=== PATIENT | female | born 1975 | race African-American/Black ===

== ENCOUNTER 2017-10-27 07:29 | Inpatient (IN) | payer BC, OTHER ==
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
[2017-10-27 07:51] VITALS: BMI 24.1
[2017-10-27 08:24] LABS: BASO % 0.9 % (0-2.0); EOS % 1.5 % (0-4.5); MCHC 34.1 g/dl (32.0-36.0); MEAN CELL VOLUME 96.7 fl (80-96); MEAN PLT VOLUME 7.8 fl (7.5-11.1); NEUT % 69.3 % (42.8-82.8); PLATELET COUNT 243 K/MM3 (134-434); RDW 12.8 % (11.6-15.6); WHITE BLOOD COUNT 4.2 K/mm3 (4.0-10.0)
--- NOTE | 2017-10-27 08:31 | PDOC ---
Attending Attestation - Resident Resident Name: Tabatha Oconnorleticiashahram - ED Attending Attestation I have performed the following: I have examined & evaluated the patient, The case was reviewed & discussed with the resident (sujit is this), I agree w/ resident's findings & plan, Exceptions are as noted - HPI HPI: 10/27/17 08:26 She has no known history 42-year-old female with no known past medical history here today complaining of stuttering speech and left-sided twitching pain and paresthesia. Patient states that she did have travel to [place] month ago was seen at [facility] urgent care 1-2 weeks ago for some body aches and joint pains and left-sided paresthesia. At that time she was told that they did a test for Lyme disease which was negative also did a flu swab which was instantly positive despite no fever chills or cough. Patient has had a known L5-S1 lower back injury and has intermittent left-sided paresthesia most recently 2013. Today she awoke with feelings of change to her speech as well as shaking in her left leg she is also complaining of bilateral lower extremity and upper extremity weakness left greater than right denies any trauma reports feeling lightheaded with standing no chest pain no fevers chills nausea vomiting no rash no history of seizure disorder seizure-like activity noted today patient states last normal was 2 weeks ago and last normal speech was last p.m. - Physicial Exam PE: 10/27/17 08:28 Patient is awake alert no acute distress. Facies are symmetric. Lungs exam is clear bilaterally without wheezing or crackles heart is regular no murmurs rubs or gallops. Abdomen is soft and nontender skin is warm and dry no rash neuro exam patient is awake alert oriented 3 cranial nerves II through XII are intact. Chest clear strength is 5 out of 5 bilateral upper extremities 4 out of 5 bilateral lower extremities however patient demonstrates poor effort and sentation is intact. Gait not tested - Medical Decision Making 10/27/17 08:30 Differential diagnosis: Patchy neurological problems such as MS or other neuromuscular disease, muscle spasm, paresthesias secondary to electrolyte abnormality intracranial process, seizure or postictal syndrome, hypoglycemia. Patient's symptoms do not fit the time frame for presentation of acute anatomical stroke plan head CT, labs, EKG, due to the fact the patient is unable to walk steadily will likely require admission neurology evaluation and possible MRI Heart Score/ECG Review #1 General ECG Interpretation: Sinus Rhythm, Normal Rate (91), Normal Intervals, No acute ischemic changes
[2017-10-27 09:26] LABS: ALBUMIN 3.5 g/dl (3.4-5.0); ALK PHOS 74 U/L (45-117); ANION GAP 6 (8-16); BILIRUBIN,TOTAL 0.7 mg/dL (0.2-1.0); CALCIUM 8.3 mg/dL (8.5-10.1); CO2 28 mmol/L (21-32); CPK 57 IU/L (26-192); CREATININE 0.9 mg/dL (0.55-1.02); GLUCOSE,RANDOM 96 mg/dL (74-106); SGOT/AST 9 U/L (15-37); SGPT/ALT 14 U/L (12-78)
[2017-10-27] MEDS ORDERED: ACETAMINOPHEN 500 MG TABLET (FP) PO ONE (10:41)
[2017-10-27] MEDS ORDERED: ACETAMINOPHEN 325 MG TABLET (FP) ONE (10:42)
[2017-10-27 12:07] LABS: CSF APPEARANCE COLORLESS; CSF COLOR CLEAR
[2017-10-27 12:36] LABS: GLUCOSE,CSF 55 mg/dL (50-80)
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
[2017-10-27] MEDS ORDERED: FLU VACCINE QUAD 60 MCG/0.5 ML (MDV 17-18) IM ONE (15:05)
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
[2017-10-27 15:46] LABS: C-REACTIVE PROTEIN < 0.3 MG/DL (0.00-0.3)
[2017-10-27 15:51] LABS: THYROID STIMULATING HORMONE 1.62 uIU/ml (0.358-3.74)
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
[2017-10-27] MEDS: SODIUM CHLORIDE 1,000 ML IV SCH (20:38)
[2017-10-27] MEDS: SENNOSIDES/DOCUSATE COMBO (SENNA PLUS) TABLET (UD) PO SCH (21:31)
[2017-10-28] MEDS: SODIUM CHLORIDE 1,000 ML IV SCH ×3 (04:38→22:41)
[2017-10-28 07:11] LABS: BASO % 2.1 % (0-2.0); EOS % 2.6 % (0-4.5); MCH 33.1 pg (25.7-33.7); MCHC 34.2 g/dl (32.0-36.0); MEAN CELL VOLUME 96.6 fl (80-96); MEAN PLT VOLUME 8.9 fl (7.5-11.1); NEUT % 41.1 % (42.8-82.8); PLATELET COUNT 214 K/MM3 (134-434); RDW 12.6 % (11.6-15.6); WHITE BLOOD COUNT 3.9 K/mm3 (4.0-10.0)
[2017-10-28 08:00] LABS: ALBUMIN 3.1 g/dl (3.4-5.0); ALK PHOS 62 U/L (45-117); ANION GAP 7 (8-16); BILIRUBIN,TOTAL 0.8 mg/dL (0.2-1.0); CALCIUM 8.6 mg/dL (8.5-10.1); CO2 26 mmol/L (21-32); CREATININE 0.8 mg/dL (0.55-1.02); GLUCOSE,RANDOM 85 mg/dL (74-106); SGOT/AST 7 U/L (15-37); SGPT/ALT 12 U/L (12-78); TOT PROT 6.1 g/dl (6.4-8.2)
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
[2017-10-28] MEDS: SENNOSIDES/DOCUSATE COMBO (SENNA PLUS) TABLET (UD) PO SCH ×2 (10:46→22:42)
--- NOTE | 2017-10-28 10:55 | PN ---
Progress Note (short form) - Note Progress Note: ID consult dictated 42 y/o female admitted with worsening bilateral LE weakness, paresthesias, L UE weakness, stuttering speech Neuro work up thusfar negative. ? Post viral syndrome ? Lyme ? non - infectious For MRI of brain Obtain BC, Lyme and syphilis serology West Nile/ Dengue/ Zika serology CSF for lyme PCR, VDRL Brucella serology HIV test Quantiferon Observe off antibiotics Neuro follow up
--- NOTE | 2017-10-28 11:33 | MSN ---
Progress Note (SOAP) - Current Medications Current Medications: Active Medications Sodium Chloride (Normal Saline -) 1,000 mls @ 125 mls/hr IV ASDIR [facility] Last Admin: 10/28/17 04:38 Dose: 125 mls/hr Senna/Docusate Sodium (Pericolace -) 1 tablet PO BID [facility] Last Admin: 10/28/17 10:46 Dose: 1 tablet - Objective Vital Signs: Vital Signs Temperature 98.3 F 10/28/17 06:00 Pulse Rate 83 10/28/17 06:00 Respiratory Rate 19 10/28/17 06:00 Blood Pressure 133/88 10/28/17 06:00 O2 Sat by Pulse Oximetry (%) 99 10/27/17 21:00 Labs Lab Results: CBC, BMP 10/28/17 05:15 10/28/17 05:15
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
--- NOTE | 2017-10-28 11:57 | MSN ---
Progress Note (short form) - Note Progress Note: Subjective: Patient was seen this morning and states that she slept well and feels stronger. She is able to bear weight and walk to the restroom with assistance. She has not had a bowel movement for 3 days even with the administration of percolace last night. Objective: HEENT: normocephalic, atraumatic. PERRLA. nontender submandibular lymphadenopathy B/L. thyroid enlarged, nontender, no nodules. Cardiovascular: RRR, S1, S2, no murmurs noted. Lungs: Clear to auscultations B/L Abdomen: normoactive bowel sounds, nontender to palpation Skin: right knee warmer than left knee on touch. Neuro: CN II-XII intact. UE motor strength 5/5 B/L. right biceps reflex could not be elicited. left biceps reflex 2. radial pulse 2+ B/L. No dysarthria, tremors at rest. LE hip extension 1/5 B/L. Knee flexion B/L 4/5. Knee extension B/L 2/5. ankle dorsiflexion and plantarflexion 5/5 B/L. Patellar reflex could not be elicited B /L Imaging: - CT of the head showed no pathology - Cervical and lumbar MRI showed a mild left paramedian disc herniation, no intraspinal pathology Laboratory Results - last 24 hr 10/27/17 10/27/17 10/27/17 10:35 13:00 15:03 WBC RBC Hgb Hct MCV MCH MCHC RDW Plt Count MPV Neutrophils % Lymphocytes % Monocytes % Eosinophils % Basophils % ESR Sodium Potassium Chloride Carbon Dioxide Anion Gap BUN Creatinine Creat Clearance w eGFR Random Glucose Calcium Total Bilirubin AST ALT Alkaline Phosphatase C-Reactive Protein < 0.3 Total Protein Albumin Vitamin B12 416 Serum Folate 19 H TSH 1.62 D Free T4 CSF Appearance Colorless CSF Color Clear CSF WBC 0 CSF RBC 0.00 CSF Neutrophils Y CSF Glucose 55 CSF Total Protein 22 RPR Titer Nonreactive 10/27/17 10/27/17 10/28/17 15:03 15:03 05:15 WBC 3.9 L RBC 3.26 L Hgb 10.8 D Hct 31.5 L MCV 96.6 H MCH 33.1 MCHC 34.2 RDW 12.6 Plt Count 214 MPV 8.9 D Neutrophils % 41.1 L D Lymphocytes % 45.7 H D Monocytes % 8.5 Eosinophils % 2.6 Basophils % 2.1 H ESR 9 Sodium Potassium Chloride Carbon Dioxide Anion Gap BUN Creatinine Creat Clearance w eGFR Random Glucose Calcium Total Bilirubin AST ALT Alkaline Phosphatase C-Reactive Protein Total Protein Albumin Vitamin B12 Serum Folate TSH Free T4 1.07 CSF Appearance CSF Color CSF WBC CSF RBC CSF Neutrophils CSF Glucose CSF Total Protein RPR Titer 10/28/17 05:15 WBC RBC Hgb Hct MCV MCH MCHC RDW Plt Count MPV Neutrophils % Lymphocytes % Monocytes % Eosinophils % Basophils % ESR Sodium 143 Potassium 4.3 D Chloride 110 H Carbon Dioxide 26 Anion Gap 7 L BUN 9 Creatinine 0.8 Creat Clearance w eGFR > 60 Random Glucose 85 Calcium 8.6 Total Bilirubin 0.8 AST 7 L D ALT 12 Alkaline Phosphatase 62 C-Reactive Protein Total Protein 6.1 L Albumin 3.1 L Vitamin B12 Serum Folate TSH Free T4 CSF Appearance CSF Color CSF WBC CSF RBC CSF Neutrophils CSF Glucose CSF Total Protein RPR Titer Vital Signs - 24 hr 10/27/17 10/27/17 10/27/17 14:38 14:40 18:00 Temperature 98.6 F Pulse Rate 88 80 Pulse Rate [ 88 Apical] Respiratory 16 18 18 Rate Blood Pressure 138/96 130/92 Blood Pressure 138/96 [Right] O2 Sat by Pulse 99 99 99 Oximetry (%) 10/27/17 10/27/17 10/28/17 21:00 22:00 01:33 Temperature Pulse Rate 85 88 Pulse Rate [ Apical] Respiratory 20 20 20 Rate Blood Pressure 140/70 135/75 Blood Pressure [Right] O2 Sat by Pulse 99 Oximetry (%) Assessment: 42yo F who presented with weakness of B/L UE and LE, dysarthria after her recent travel to [place]. Differentials currently include Lyme Dz, viral encephalitis, multiple sclerosis, GBS/ Lambert-Eaton, myasthenia gravis. Plan: 1) Progressive B/L LE weakness - neurology consult (Dr. Elke Laurent) - Lyme antibody, IgG, PCR - IgA, IgG, IgM immunoglobulin - ISH - CPK - Free T3 - MBP - oligoclonal bands - VDRL - brain MRI pending - Brucella IgG, IgM. Dengue Fever Ab. HIV1,2 Ab. Quantiferon. West Nile Virus Ab. Zika Virus urine and serum. (ordered by Dr. Jluis Zuniga) - blood culture & CSF culture - PT requested 2) Constipation - Pericolace 1tab PO BID 3) FEN - fluid- PO hydration. NS 1000mL @ 125mls/hr - electrolytes- no abnormalities - nutrition- regular diet 4) DVT prophylaxis- SCDs b/l Dispo: further neuro work up and pending labs, head MRI
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
--- NOTE | 2017-10-28 15:08 | EKG ---
Test Reason : Blood Pressure : / mmHG Vent. Rate : 091 BPM Atrial Rate : 091 BPM P-R Int : 160 ms QRS Dur : 078 ms QT Int : 362 ms P-R-T Axes : 076 081 047 degrees QTc Int : 445 ms NORMAL SINUS RHYTHM POSSIBLE LEFT ATRIAL ENLARGEMENT SEPTAL INFARCT (CITED ON OR BEFORE 19-FEB-2014) ABNORMAL ECG WHEN COMPARED WITH ECG OF 25-AUG-2015 09:57, NO SIGNIFICANT CHANGE WAS FOUND Confirmed by NORMA DOTSON MD ([id number]) on 10/28/2017 3:08:08 PM Referred By: Confirmed By:NORMA DOTSON MD
[2017-10-28] MEDS: ACETAMINOPHEN 325 MG TABLET (FP) PO PRN ×2 (15:57→22:00)
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
[2017-10-28 21:32] LABS: INR 1.12 (0.82-1.09); PROTHROMBIN TIME (PATIENT) 12.6 SEC (9.98-11.88)
[2017-10-28] MEDS ORDERED: HEPARIN NA (PORCINE) 5,000 UNITS/ML 1ML VIAL SQ SCH (22:00)
[2017-10-29] MEDS: SODIUM CHLORIDE 1,000 ML IV SCH ×3 (04:34→19:59)
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
[2017-10-29 07:27] LABS: BASO % 1.1 % (0-2.0); EOS % 3.8 % (0-4.5); MCH 32.7 pg (25.7-33.7); MCHC 33.5 g/dl (32.0-36.0); MEAN CELL VOLUME 97.5 fl (80-96); MEAN PLT VOLUME 8.3 fl (7.5-11.1); NEUT % 43.8 % (42.8-82.8); PLATELET COUNT 205 K/MM3 (134-434); RDW 12.6 % (11.6-15.6); WHITE BLOOD COUNT 4.3 K/mm3 (4.0-10.0)
[2017-10-29 07:51] LABS: ALBUMIN 3.1 g/dl (3.4-5.0); ANION GAP 6 (8-16); CALCIUM 8.5 mg/dL (8.5-10.1); CO2 27 mmol/L (21-32); CREATININE 0.9 mg/dL (0.55-1.02); GLUCOSE,RANDOM 84 mg/dL (74-106); SGOT/AST 10 U/L (15-37); TOT PROT 6.1 g/dl (6.4-8.2)
[2017-10-29 07:54] LABS: ALK PHOS 61 U/L (45-117); BILIRUBIN,TOTAL 0.9 mg/dL (0.2-1.0); SGPT/ALT 12 U/L (12-78)
[2017-10-29] MEDS ORDERED: VANCOMYCIN 1,000 MG VIAL (RESTRICTED TO ID ONLY) ONE ×3 (08:47→10:25)
[2017-10-29] MEDS ORDERED: LIDOCAINE HCL 1%, 10 MG/ML (20ML VIAL) ONE (08:47)
[2017-10-29] MEDS ORDERED: GENTAMICIN SO4 80 MG/2 ML VIAL ONE (08:47)
[2017-10-29] MEDS ORDERED: BUPIVACAINE HCL/PF 0.5% (5MG/ML) 10 ML VIAL ONE ×2 (08:48→10:24)
[2017-10-29] MEDS ORDERED: LIDOCAINE 1%/EPI 1:100000 (20 ML MULTI DOSE VIAL) ONE (08:49)
[2017-10-29 09:54] LABS: HIV 1 & 2 AB NEGATIVE; HIV 1 AGp24 NEGATIVE
[2017-10-29] MEDS: SENNOSIDES/DOCUSATE COMBO (SENNA PLUS) TABLET (UD) PO SCH ×2 (10:10→22:28)
[2017-10-29] MEDS ORDERED: THROMBIN (BOVINE) 5,000 UNIT VIAL TP ONE ×2 (10:24→14:32)
[2017-10-29] MEDS ORDERED: VANCOMYCIN 1,000 MG in DEXTROSE 5%-WATER - 250 ML IVPB ONE (10:33)
[2017-10-29] MEDS ORDERED: MIDAZOLAM HCL 2 MG/2 ML SINGLE DOSE VIAL ONE (11:02)
[2017-10-29] MEDS ORDERED: fentaNYL CITRATE 250 MCG/5 ML VIAL ONE (11:04)
[2017-10-29] MEDS ORDERED: ROCURONIUM BROMIDE 50 MG/5 ML VIAL ONE ×2 (11:05→11:59)
[2017-10-29] MEDS ORDERED: PROPOFOL 20 ML ONE ×2 (11:05→13:46)
[2017-10-29] MEDS ORDERED: ceFAZolin SODIUM 1 GM VIAL IVPB ONE (11:10)
[2017-10-29] MEDS ORDERED: VANCOMYCIN 1,000 MG VIAL (RESTRICTED TO ID ONLY) IVPB ONE (11:20)
[2017-10-29] MEDS ORDERED: LIDOCAINE 1%/EPI 1:100000 (20 ML MULTI DOSE VIAL) INF ONE (12:35)
[2017-10-29] MEDS ORDERED: BUPIVACAINE HCL/PF 0.5% (5MG/ML) 10 ML VIAL IJ ONE (13:23)
--- NOTE | 2017-10-29 13:40 | MSN ---
Progress Note (short form) - Note Progress Note: Subjective: Patient was seen this morning with complaints of LE weakness and pain on medial aspect of the right leg with weight bearing during her PT session yesterday. She also complains of headache with neck and shoulder pain which started last evening and has improved with the use of a heating pad. Patient reported having soft bowel movement yesterday. Patient was scheduled for Laminectomy at 9:30am with Dr. Mccracken. Objective: Last Vital Signs Temp Pulse Resp BP Pulse Ox 99 F 78 18 139/80 99 10/29/17 10:00 10/29/17 10:00 10/29/17 10:00 10/29/17 10:00 10/29/17 09:00 General: Alert and Oriented x3 HEENT: normocephalic, atraumatic. PERRLA. EOMI. nontender submandibular lymphadenopathy B/L unchanged. Thyroid enlarged, nontender, no nodules. Lungs: clear to auscultation B/L Heart: RRR, normal S1, S2. Abdomen: normoactive bowel sounds. soft, nontender to palpation. Skin: right knee warmer than the left Neuro: CN II-XII intact. UE motor strength (biceps/ triceps, wrist flexion/ extension, finger abduction, assembling inspector) 5/5 B/L. 2+ radial pulses. Right biceps, triceps, brachioradialis reflex could not be elicited. Left biceps reflex 2+, triceps & brachioradialis 1+ LE hip extension 2/5, knee flexion/ extension 4/5, ankle dorsiflexion & plantarflexion 5/5. Knee & ankle reflex 1+ B/L. Labs: Laboratory Last Values WBC 4.3 K/mm3 (4.0-10.0) 10/29/17 06:30 RBC 3.29 M/mm3 (3.60-5.2) L 10/29/17 06:30 Hgb 10.7 GM/dL (10.7-15.3) 10/29/17 06:30 Hct 32.0 % (32.4-45.2) L 10/29/17 06:30 MCV 97.5 fl (80-96) H 10/29/17 06:30 MCH 32.7 pg (25.7-33.7) 10/29/17 06:30 MCHC 33.5 g/dl (32.0-36.0) 10/29/17 06:30 RDW 12.6 % (11.6-15.6) 10/29/17 06:30 Plt Count 205 K/MM3 (134-434) 10/29/17 06:30 MPV 8.3 fl (7.5-11.1) 10/29/17 06:30 Neutrophils % 43.8 % (42.8-82.8) 10/29/17 06:30 Lymphocytes % 43.3 % (8-40) H 10/29/17 06:30 Monocytes % 8.0 % (3.8-10.2) 10/29/17 06:30 Eosinophils % 3.8 % (0-4.5) 10/29/17 06:30 Basophils % 1.1 % (0-2.0) 10/29/17 06:30 ESR 9 mm/hr (0-20) 10/27/17 15:03 PT with INR 12.60 SEC (9.98-11.88) H 10/28/17 20:00 INR 1.12 (0.82-1.09) 10/28/17 20:00 Sodium 144 mmol/L (136-145) 10/29/17 06:30 Potassium 3.9 mmol/L (3.5-5.1) 10/29/17 06:30 Chloride 111 mmol/L (98-107) H 10/29/17 06:30 Carbon Dioxide 27 mmol/L (21-32) 10/29/17 06:30 Anion Gap 6 (8-16) L 10/29/17 06:30 BUN 9 mg/dL (7-18) 10/29/17 06:30 Creatinine 0.9 mg/dL (0.55-1.02) 10/29/17 06:30 Creat Clearance w eGFR > 60 (>60) 10/29/17 06:30 Random Glucose 84 mg/dL (74-106) 10/29/17 06:30 Calcium 8.5 mg/dL (8.5-10.1) 10/29/17 06:30 Total Bilirubin 0.9 mg/dL (0.2-1.0) 10/29/17 06:30 AST 10 U/L (15-37) L D 10/29/17 06:30 ALT 12 U/L (12-78) 10/29/17 06:30 Alkaline Phosphatase 61 U/L (45-117) 10/29/17 06:30 Creatine Kinase 57 IU/L (26-192) 10/27/17 08:10 C-Reactive Protein < 0.3 MG/DL (0.00-0.3) 10/27/17 15:03 Total Protein 6.1 g/dl (6.4-8.2) L 10/29/17 06:30 Albumin 3.1 g/dl (3.4-5.0) L 10/29/17 06:30 Vitamin B12 416 pg/ml (180-914) 10/27/17 15:03 Serum Folate 19 ng/ml (3.1-17.5) H 10/27/17 15:03 TSH 1.62 uIU/ml (0.358-3.74) D 10/27/17 15:03 Free T4 1.07 ng/dl (0.76-1.46) 10/27/17 15:03 Free T3 3.0 pg/ml (2.0-4.4) 10/27/17 15:05 Serum , Qual Negative 10/27/17 08:25 CSF Appearance Colorless 10/27/17 10:35 CSF Color Clear 10/27/17 10:35 CSF WBC 0 mm/3 10/27/17 10:35 CSF RBC 0.00 mm/3 10/27/17 10:35 CSF Neutrophils Y 10/27/17 10:35 CSF Glucose 55 mg/dL (50-80) 10/27/17 10:35 CSF Total Protein 22 mg/dL (15-45) 10/27/17 10:35 IgG 1642 mg/dL (700-1600) H 10/27/17 12:42 IgA 177 mg/dL (87-352) 10/27/17 12:42 IgM 283 mg/dL (26-217) H 10/27/17 12:00 ISH Screen Negative (.) 10/27/17 10:00 RPR Titer Nonreactive (NONREACTIVE) 10/27/17 13:00 Lyme Disease IgG/IgM < 0.91 ISR (0.00-0.90) 10/27/17 08:10 HIV 1&2 Antibody Screen Negative 10/29/17 06:30 HIV P24 Antigen Negative 10/29/17 06:30 Blood Type O POSITIVE 10/28/17 20:00 Antibody Screen Negative 10/28/17 20:00 Microbiology 10/28/17 11:03 Blood - Peripheral Venous Blood Culture - Preliminary NO GROWTH OBTAINED AFTER 24 HOURS, INCUBATION TO CONTINUE FOR 4 DAYS. 10/28/17 11:05 Blood - Peripheral Venous Blood Culture - Preliminary NO GROWTH OBTAINED AFTER 24 HOURS, INCUBATION TO CONTINUE FOR 4 DAYS. 10/27/17 11:14 Cerebral Spinal Fluid - Lumbar Puncture Gram Stain - Final 10/27/17 11:14 Cerebral Spinal Fluid - Lumbar Puncture CSF Culture - Preliminary NO GROWTH OBTAINED AFTER 24 HOURS INCUBATION, REINCUBATED. Imaging: - non- contrast head CT on 10/27 showed no pathology - cervical/ thoracic/ lumbar MRI on 10/27 showed a T7-T8 central/left paramedian disc herniation with mild spinal cord indentation. - brain MRI without contrast on 10/28 showed a nonspecific single punctate focus of T2/FLAIR signal in the subinsular white matter. No signal abnormalities to suggest multiple sclerosis. No evidence of infarction, mass effect, midline shift or hydrocephalus. Prominent pituitary gland 10mm. Assessment/ Plan: 42yo woman with a hx of L5-S1 radiculopathy, recurrent adenoiditis who currently presents with persistent B/L LE weakness, arthralgia and fatigue possibly due to T7-T8 spondylosis. Differential diagnosis includes Lyme Dz, GBS , transverse myelitis, myasthenia gravis/ lambert eaton syndrome. 1) Progressive B/L LE weakness - neurology consulted (Dr. Elke Laurent) - CSF stain and culture negative. - Lyme IgG/IgM <0.91 (N: 0-0.90) - IgG 1642 (N:700-1600), IgA 177 (N:87-352), IgM 283(N: 26-217) - RPR nonreactive. - HIV 1&2 antibody, HIVp24 antigen are negative - ISH is negative - pending CSF oligoclonal bands, lyme titer. - pending Brucella IgG, IgM. Dengue Fever Ab. West Nile Virus Ab. Zika Virus urine and serum (ordered by Dr. Jluis Zuniga) - T7-T8 laminectomy w/ transpedicle costotransverse decompression, w/ T7-T8 posterior fusion performed by Dr. Daugherty on 10/29/17. - acetaminophen 650mg PO q6h prn pain 2) Constipation - Pericolace 1 tab PO BID 3) FEN - fluid: NS 1000mL @125 mls/hr. - electrolytes: no abnormalities - nutrition: NPO due to surgery. return to PO 4) DVT prophylaxis - SCDs (heparin on hold due to recent surgery) Dispo: Further neuro work up, pending labs, post-op: laminectomy
[2017-10-29] MEDS ORDERED: SODIUM CHLORIDE 0.9% P/F 10 ML VIAL IJ ONE (13:54)
[2017-10-29] MEDS ORDERED: ePHEDrine SULFATE 50 MG/1 ML AMPULE ONE (13:54)
[2017-10-29] MEDS ORDERED: NEOSTIGMINE METHYLSULFATE 0.5 MG/ML - 10 ML MDV ONE (13:56)
[2017-10-29] MEDS ORDERED: GLYCOPYRROLATE 0.2 MG/1 ML VIAL ONE (13:57)
[2017-10-29] MEDS ORDERED: PHENYLEPHRINE HCL 10 MG/1 ML SINGLE DOSE VIAL ONE (13:58)
[2017-10-29] MEDS ORDERED: ONDANSETRON 4 MG/2 ML VIAL IVPUSH PRN ×2 (14:42→17:27)
[2017-10-29] MEDS ORDERED: FLU VACCINE QUAD 60 MCG/0.5 ML (MDV 17-18) IM ONE (14:45)
--- NOTE | 2017-10-29 15:37 | OP ---
Operative Note - Note: Operative Date: 10/29/17 Pre-Operative Diagnosis: T7-T8 disc herniation, thoracic splondylosis Operation: T7-T8 Laminectomies with transpedicle costotransverse decompression of T7-T8 with T7-T8 posterior fusion Post-Operative Diagnosis: Same as Pre-op Surgeon: Navarro Horn Accident Report Clerk: Gina Acuña Anesthesiologist/GROCERY WORKER: Nimo Retana MD Anesthesia: General Specimens Removed: T7-T8 Disc Estimated Blood Loss (mls): 150 Drains & Tubes with Location: Right thoracic HARESH Fluid Volume Replaced (mls): 1,000 Operative Report Dictated: Yes
--- NOTE | 2017-10-29 15:38 | SURG ---
Surgery Hedge Fund Accountant Note Hedge Fund Accountant: Gina Acuña PA-C Date of Service: 10/29/17 Diagnosis: T7-T8 disc herniation Procedure: T7-T8 Laminectomies with transpedicle costotransverse decompression of T7-T8 with T7-T8 posterior fusion I was present for the entirety of the operative procedure. For further detail, please refer to operative report. Visit type - Case Type Case Type: ED Admission - Emergency Emergency Visit: Yes ED Registration Date: 10/27/17 Care time: The patient presented to the Emergency Department on the above date and was hospitalized for further evaluation of their emergent condition. - New patient This patient is new to me today: Yes Date on this admission: 10/29/17
[2017-10-29] MEDS ORDERED: ACETAMINOPHEN 325 MG TABLET (FP) PO PRN ×2 (15:58→17:27)
[2017-10-29] MEDS ORDERED: oxyCODONE HCL 5 MG TABLET PO PRN (15:58)
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
--- NOTE | 2017-10-29 16:45 | PN ---
Progress Note, Physician History of Present Illness: Seen in PACU S/P T7T8 laminectomy/ decompression/ posterior fusion Sedated No fever WBC WNL Lyme serology, HIV (-) - Current Medication List Current Medications: Active Medications Acetaminophen (Tylenol -) 650 mg PO Q6H PRN PRN Reason: FEVER OR PAIN Last Admin: 10/28/17 22:00 Dose: 650 mg Acetaminophen (Tylenol -) 325 mg PO Q4H PRN PRN Reason: PAIN Stop: 11/01/17 15:57 Acetaminophen (Tylenol -) 650 mg PO Q4H PRN PRN Reason: PAIN Stop: 11/01/17 15:58 Fentanyl (Sublimaze Injection -) 50 mcg IVPUSH [id number] PRN PRN Reason: PAIN Heparin Sodium (Porcine) (Heparin -) 5,000 unit SQ TID PETER Sodium Chloride (Normal Saline -) 1,000 mls @ 125 mls/hr IV ASDIR PETER Last Admin: 10/29/17 04:34 Dose: 125 mls/hr Cefazolin Sodium (Ancef -) 1 gm in 10 mls @ 120 mls/hr IVPUSH Q8H-IV PETER Ondansetron HCl (Zofran Injection) 4 mg IVPUSH Q6H PRN PRN Reason: NAUSEA AND/OR VOMITING Oxycodone HCl (Roxicodone -) 5 mg PO Q4H PRN PRN Reason: PAIN Oxycodone HCl (Roxicodone -) 10 mg PO Q4H PRN PRN Reason: PAIN Senna/Docusate Sodium (Pericolace -) 1 tablet PO BID [facility] Last Admin: 10/29/17 10:10 Dose: Not Given - Objective Vital Signs: Vital Signs Temperature 98.8 F 10/29/17 14:32 Pulse Rate 84 10/29/17 16:30 Respiratory Rate 16 10/29/17 16:30 Blood Pressure 131/81 10/29/17 16:30 O2 Sat by Pulse Oximetry (%) 100 10/29/17 16:30 Constitutional: Yes: No Distress Eyes: Yes: Conjunctiva Clear Cardiovascular: Yes: Regular Rate and Rhythm, S1, S2 Respiratory: Yes: CTA Bilaterally Gastrointestinal: Yes: Normal Bowel Sounds, Soft. No: Tenderness Edema: No Labs: CBC, BMP 10/29/17 06:30 10/29/17 06:30 INR, PTT INR 1.12 (0.82-1.09) 10/28/17 20:00 Assessment/Plan Post op T7T8 laminectomy/ decompression/ posterior fusion Doubt mosquito/ tick-related illness Await serologies
[2017-10-29] MEDS ORDERED: CEFAZOLIN 1 GM in DEXTROSE 5%-WATER - 50 ML IVPB SCH (18:00)
[2017-10-29] MEDS: CEFAZOLIN 1 GM PUSH 1 GM/10 ML DISP.SYRIN IVPUSH SCH (18:42)
[2017-10-29] MEDS: oxyCODONE HCL 5 MG TABLET PO PRN (20:08)
[2017-10-29] MEDS: ACETAMINOPHEN 325 MG TABLET (FP) PO PRN (20:09)
[2017-10-30] MEDS: CEFAZOLIN 1 GM PUSH 1 GM/10 ML DISP.SYRIN IVPUSH SCH ×3 (01:55→18:22)
[2017-10-30] MEDS: oxyCODONE HCL 5 MG TABLET PO PRN ×4 (02:00→20:03)
[2017-10-30] MEDS: SODIUM CHLORIDE 1,000 ML IV SCH ×3 (04:30→17:21)
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
[2017-10-30] MEDS: HEPARIN NA (PORCINE) 5,000 UNITS/ML 1ML VIAL SQ SCH ×3 (06:13→21:22)
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
[2017-10-30 08:45] LABS: BASO % 0.5 % (0-2.0); EOS % 0.3 % (0-4.5); MEAN CELL VOLUME 97.2 fl (80-96); MEAN PLT VOLUME 8.4 fl (7.5-11.1); NEUT % 68.7 % (42.8-82.8); PLATELET COUNT 204 K/MM3 (134-434); RDW 12.6 % (11.6-15.6)
[2017-10-30 09:16] LABS: ANION GAP 7 (8-16); CALCIUM 7.9 mg/dL (8.5-10.1); CO2 25 mmol/L (21-32); CREATININE 0.9 mg/dL (0.55-1.02); GLUCOSE,RANDOM 87 mg/dL (74-106)
--- NOTE | 2017-10-30 09:34 | PN ---
Progress Note (short form) - Note Progress Note: Surgery POD #1 T7-T8 discectomy with decompression and fusion. Patient seen and examined at bedside. She states the "feeling in her legs is coming back". She is pleasant and talkative. She is actively moving all extremities without limitation or restriction. The patient has been ambulating to the bathroom and voiding spontaneously, she has been passing gas but has not had a BM yet. She denies any paresthesias or radicular symptoms in upper or lower extremities. She does have pain at incision site with movement which is appropriate to her status and her pain is controlled. She denies any c/p, SOB, N /V, Headache or blurred vision. She is tolerating a regular diet. Vital Signs Temp 98.3 F 10/30/ 07:07 Pulse 85 10/30/17 07:07 Resp 20 10/30/17 07:07 BP 120/70 10/30/17 07:07 Pulse Ox 100 10/29/17 16:40 Intake & Output 10/29/17 10/29/17 10/30/17 11:59 23:59 11:59 Intake Total 350 1500 Output Total 1110 80 Balance 350 390 -80 Intake: IV 350 1500 Normal Saline - 1,000 ml 350 @ 125 mls/hr IV ASDIR PETER Rx#:[id number] Output: Drainage 160 80 Upper Back 100 80 Urine 800 Estimated Blood Loss 150 Other: Voiding Method Toilet Bedside Commode # Unmeasured Voids Void 1 CBC, BMP 10/30/17 08:00 10/30/17 08:00 PE: A&Ox3, NAD VSS with unlabored resp on 2L NC Thoracic incision-dressing c/d/i with no evidence of fluctuance or tracking erythema. mildly TTP at site- appropriate to status. HARESH drain intact with SS discharge, drain site c/d/i. B/L UE 5/5 on left and 4/5 on right, slightly limited 2/2 pain blocking B/L LE patient able to straight leg raise against resistance without pain. 5/5 dorsi/plantar flexion b/l. compartments soft, supple and non-tender with scds in place. +2 pedal pulse on Right, +1 pedal pulse on left (patient's baseline pre-op) Assessment and plan: S/P T7-T8 discectomy with decompression and fusion with significant clinical improvement POD #1 1) OOB with PT and TLSO brace 2) DVT prophylaxis b/l teds, scds and heparin 3) pain control 4) Continue Ancef while HARESH drain in 5) Keep dressing dry Evaluation and plan discussed with Dr Horn
[2017-10-30] MEDS ORDERED: FOLIC ACID 1 MG TABLET (FP) PO SCH (10:00)
[2017-10-30] MEDS ORDERED: PT OWN MED DRAWER 7, Y5N ONE ×2 (10:38→18:13)
[2017-10-30] MEDS: SENNOSIDES/DOCUSATE COMBO (SENNA PLUS) TABLET (UD) PO SCH ×2 (10:43→21:18)
[2017-10-30] MEDS: ACETAMINOPHEN 325 MG TABLET (FP) PO PRN ×3 (10:43→20:02)
--- NOTE | 2017-10-30 13:19 | MSN ---
Progress Note (short form) - Note Progress Note: Subjective: 42yo F status post laminectomy post-op day 1 is doing well and complains only of surgical site pain. Patient claims that the numbness on her legs and shooting pain have gone away and that she has more strength moving her LE. Objective: Last Vital Signs Temp Pulse Resp BP Pulse Ox 98.3 F 85 20 120/70 100 10/30/17 07:07 10/30/17 07:07 10/30/17 07:07 10/30/17 07:07 10/29/17 16:40 General: patient is alert and oriented x3 HEENT: normocephalic, atraumatic. PERRLA. EOMI. nontender submandibular lymphdenopathy b/l unchanged. Lungs: Clear to auscultation B/L Heart: RRR, normal S1, S2 Abdomen: normoactive bowel sounds. soft, nontender to palpation Neuro: CN II- XII intact. Diminished sensation on right V1 (unchanged) UE motor strength of biceps, triceps, wrist flexion/ extension, finger abduction, drafter civil are 5/5 B/L. radial pulses are 2+ B/L. biceps reflex 2+ B/L. LE hip extension 4/5 B/L. knee flexion/ extension 4/5 B/L. ankle dorsiflexion and plantarflexion are 5/5 B/L. Knee and ankle reflex 1+ on right, 2+ on left. sensation intact throughout B/L LE. . Laboratory Last Values WBC 9.0 K/mm3 (4.0-10.0) D 10/30/17 08:00 RBC 3.10 M/mm3 (3.60-5.2) L 10/30/17 08:00 Hgb 10.2 GM/dL (10.7-15.3) L 10/30/17 08:00 Hct 30.1 % (32.4-45.2) L 10/30/17 08:00 MCV 97.2 fl (80-96) H 10/30/17 08:00 MCH 33.0 pg (25.7-33.7) 10/30/17 08:00 MCHC 34.0 g/dl (32.0-36.0) 10/30/17 08:00 RDW 12.6 % (11.6-15.6) 10/30/17 08:00 Plt Count 204 K/MM3 (134-434) 10/30/17 08:00 MPV 8.4 fl (7.5-11.1) 10/30/17 08:00 Neutrophils % 68.7 % (42.8-82.8) D 10/30/17 08:00 Lymphocytes % 22.7 % (8-40) D 10/30/17 08:00 Monocytes % 7.8 % (3.8-10.2) 10/30/17 08:00 Eosinophils % 0.3 % (0-4.5) D 10/30/17 08:00 Basophils % 0.5 % (0-2.0) 10/30/17 08:00 ESR 9 mm/hr (0-20) 10/27/17 15:03 PT with INR 12.60 SEC (9.98-11.88) H 10/28/17 20:00 INR 1.12 (0.82-1.09) 10/28/17 20:00 Sodium 142 mmol/L (136-145) 10/30/17 08:00 Potassium 3.6 mmol/L (3.5-5.1) 10/30/17 08:00 Chloride 110 mmol/L (98-107) H 10/30/17 08:00 Carbon Dioxide 25 mmol/L (21-32) 10/30/17 08:00 Anion Gap 7 (8-16) L 10/30/17 08:00 BUN 7 mg/dL (7-18) D 10/30/17 08:00 Creatinine 0.9 mg/dL (0.55-1.02) 10/30/17 08:00 Creat Clearance w eGFR > 60 (>60) 10/29/17 06:30 Random Glucose 87 mg/dL (74-106) 10/30/17 08:00 Calcium 7.9 mg/dL (8.5-10.1) L 10/30/17 08:00 Total Bilirubin 0.9 mg/dL (0.2-1.0) 10/29/17 06:30 AST 10 U/L (15-37) L D 10/29/17 06:30 ALT 12 U/L (12-78) 10/29/17 06:30 Alkaline Phosphatase 61 U/L (45-117) 10/29/17 06:30 Creatine Kinase 57 IU/L (26-192) 10/27/17 08:10 C-Reactive Protein < 0.3 MG/DL (0.00-0.3) 10/27/17 15:03 Total Protein 6.1 g/dl (6.4-8.2) L 10/29/17 06:30 Albumin 3.1 g/dl (3.4-5.0) L 10/29/17 06:30 Vitamin B12 416 pg/ml (180-914) 10/27/17 15:03 Serum Folate 19 ng/ml (3.1-17.5) H 10/27/17 15:03 TSH 1.62 uIU/ml (0.358-3.74) D 10/27/17 15:03 Free T4 1.07 ng/dl (0.76-1.46) 10/27/17 15:03 Free T3 3.0 pg/ml (2.0-4.4) 10/27/17 15:05 Serum , Qual Negative 10/27/17 08:25 CSF Appearance Colorless 10/27/17 10:35 CSF Color Clear 10/27/17 10:35 CSF WBC 0 mm/3 10/27/17 10:35 CSF RBC 0.00 mm/3 10/27/17 10:35 CSF Neutrophils Y 10/27/17 10:35 CSF Glucose 55 mg/dL (50-80) 10/27/17 10:35 CSF Total Protein 22 mg/dL (15-45) 10/27/17 10:35 CSF Lyme Disease DNA Negative (Negative) 10/27/17 12:00 IgG 1642 mg/dL (700-1600) H 10/27/17 12:42 IgA 177 mg/dL (87-352) 10/27/17 12:42 IgM 283 mg/dL (26-217) H 10/27/17 12:00 ISH Screen Negative (.) 10/27/17 10:00 RPR Titer Nonreactive (NONREACTIVE) 10/27/17 13:00 Lyme Disease IgG/IgM < 0.91 ISR (0.00-0.90) 10/27/17 08:10 HIV 1&2 Antibody Screen Negative 10/29/17 06:30 HIV P24 Antigen Negative 10/29/17 06:30 Blood Type O POSITIVE 10/28/17 20:00 Antibody Screen Negative 10/28/17 20:00 Microbiology 10/28/17 11:03 Blood - Peripheral Venous Blood Culture - Preliminary NO GROWTH OBTAINED AFTER 48 HOURS, INCUBATION TO CONTINUE FOR 3 DAYS. 10/28/17 11:05 Blood - Peripheral Venous Blood Culture - Preliminary NO GROWTH OBTAINED AFTER 48 HOURS, INCUBATION TO CONTINUE FOR 3 DAYS. 10/27/17 11:14 Cerebral Spinal Fluid - Lumbar Puncture Gram Stain - Final 10/27/17 11:14 Cerebral Spinal Fluid - Lumbar Puncture CSF Culture - Final NO GROWTH AFTER 48 HOURS INCUBATION Imaging - non contrast head CT on 10/27 showed no pathology - cervical/ thoracic/ lumbar MRI on 10/27 showed a T7-T8 central/ left paramedian disc herniation with mild spinal cord indentation - brain MRI without contrast on 10/28 showed a nonspecific single punctate focus of T2/FLAIR signal in the subinsular white matter. No signal abnormalities to suggest MS. No evidence of infarction, mass effect, midline shift or hydrocephalus. Prominent pituitary gland 10mm. Assessment/ Plan: 42yo woman with a hx of L-S1 radiculopathy, recurrent adenoiditis who presents with persistent B/L LE weakness due to mechanical impingement T7-T8 spondylosis. Patient is doing well post-op day 1 and will be monitored for progress. 1) B/L LE weakness, has improved post laminectomy - neurology consulted (Dr. Elke Laurent) - CSF stain, culture and Lyme negative - Lyme IgG/ IgM <0.91 (N: 0-0.9) - IgG 1642 (N: 700-1600), IgA 177 (N: 87-352), IgM 283 (N: 26-217) - RPR nonreactive - HIV 1&2 antibody, HIVp24 antigen are negative - ISH is negative. - pending CSF oligoclonal bands - pending Brucella IgG, IgM. Dengue fever Ab. West Nile virus Ab. Zika virus urine and serum (ordered by Dr. Jluis Zuniga) - T7-T8 laminectomy with transpedicle costotrasnverse decompression and posterior fusion performed by Dr. Daugherty on 10/29/17 2)Post- op management - Ancef 1g in 10mls @120mls/hr - Oxycodone 5mg PO q4h prn pain level 1-5 - Oxycodone 10mg PO q4h prn pain level 6-10 - acetaminophen 650 mg PO q4h prn pain. - acetaminophen 325 mg PO q4h prn pain - odansetron HCl 4mg IV push q6h prn nausea/vomit - monitor progress and pain level. - possible HARESH drain removal - PT 3) follow up enlarged pituitary finding - pituitary MRI with gadolinium 4) Constipation - senna/docusate 1tab PO BID 5) DVT prophylaxis - heparin sodium 5000 unit sq TID 6) FEN - fluid NS 1000mL @125 mls/hr - electrolytes: no abnormalities - nutrition: PO nutrition dispo: post-op management, physical therapy, neuro work up, pending labs.
[2017-10-30 16:41] LABS: MCH 33.3 pg (25.7-33.7); MCHC 33.8 g/dl (32.0-36.0); MEAN CELL VOLUME 98.3 fl (80-96); MEAN PLT VOLUME 8.8 fl (7.5-11.1); PLATELET COUNT 218 K/MM3 (134-434); RDW 12.7 % (11.6-15.6)
[2017-10-30 17:10] LABS: ALBUMIN 3.1 g/dl (3.4-5.0); ANION GAP 8 (8-16); CALCIUM 7.4 mg/dL (8.5-10.1); CO2 25 mmol/L (21-32); CREATININE 0.9 mg/dL (0.55-1.02); GLUCOSE,RANDOM 59 mg/dL (74-106); SGOT/AST 11 U/L (15-37); SGPT/ALT 10 U/L (12-78)
[2017-10-30 17:12] LABS: ALK PHOS 73 U/L (45-117); BILIRUBIN,TOTAL 0.7 mg/dL (0.2-1.0); TOT PROT 6.4 g/dl (6.4-8.2)
--- NOTE | 2017-10-30 18:54 | PN ---
Teaching Attending Note Name of Resident: Shakir Davenport ATTENDING PHYSICIAN STATEMENT I saw and evaluated the patient. I reviewed the resident's note and discussed the case with the resident. I agree with the resident's findings and plan as documented. SUBJECTIVE: No fever or chills . has no pain. feels much better after sx , she gaind function and strength in LE , OBJECTIVE: NAD , AAOx3 CV: RRR 2/6 SM at LLSB Lungs : CTAB ext: no edema Abd: soft, NT, ND , NL BS Neuro : strength in proximal upper extremities was not fully tested due to pain in back. 5/5 in biceps and triceps and wrist flexion /extension as well as hand switch adjuster. strength 5/5 in LE proximally and distally . sensatio to light touch NL. Knee jerk 1+ R, 2+ L . 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 1- Central cervical disk herniation , s/p T7-T8 discectomy with decompression and fusion with significant improvement in neuro exam. - pain control - DVT px - OUt of bed with TLCO - Abx while HARESH in - monitor neuro exam - dc IVF 2- prominent pituitary glan on mRI of head: - f/u as out pt for MRI with arely to further evaluate 3- macrocytic anemia : folic is elevated and B12 is nl. - dc folic acid. 4- DVT PX : heparin Dispo : possible dc in 1-2 days pending HARESH drainage removal
[2017-10-31 00:06] LABS: LYME IGG WB INTERP. Negative (.); LYME IGM WB. INTERP Negative (.); P18 AB Absent (.); P23 AB Absent (.); P28 AB Absent (.); P30 AB Absent (.); P39 AB Absent (.); P41 AB Absent (.); P45 AB Absent (.); P58 AB Absent (.); P66 AB Absent (.); P93 AB Absent (.)
[2017-10-31] MEDS: oxyCODONE HCL 5 MG TABLET PO PRN ×4 (00:50→19:46)
[2017-10-31] MEDS: ACETAMINOPHEN 325 MG TABLET (FP) PO PRN ×3 (00:51→19:51)
[2017-10-31] MEDS: CEFAZOLIN 1 GM PUSH 1 GM/10 ML DISP.SYRIN IVPUSH SCH ×3 (02:37→17:42)
[2017-10-31] MEDS: HEPARIN NA (PORCINE) 5,000 UNITS/ML 1ML VIAL SQ SCH ×3 (05:52→21:04)
--- NOTE | 2017-10-31 06:53 | PN ---
Progress Note, Physician Chief Complaint: S/P thoracic decompression fusion under general anesthesia History of Present Illness: post op day one - Current Medication List Current Medications: Active Medications Acetaminophen (Tylenol -) 325 mg PO Q4H PRN PRN Reason: PAIN Stop: 11/01/17 15:57 Acetaminophen (Tylenol -) 650 mg PO Q4H PRN PRN Reason: PAIN Stop: 11/01/17 15:58 Last Admin: 10/31/17 06:33 Dose: 650 mg Acetaminophen (Tylenol -) 650 mg PO Q6H PRN PRN Reason: FEVER OR PAIN Heparin Sodium (Porcine) (Heparin -) 5,000 unit SQ TID [facility] Last Admin: 10/31/17 05:52 Dose: 5,000 unit Cefazolin Sodium (Ancef -) 1 gm in 10 mls @ 120 mls/hr IVPUSH Q8H-IV [facility] Last Admin: 10/31/17 02:37 Dose: 120 mls/hr Ondansetron HCl (Zofran Injection) 4 mg IVPUSH Q6H PRN PRN Reason: NAUSEA AND/OR VOMITING Oxycodone HCl (Roxicodone -) 5 mg PO Q4H PRN PRN Reason: PAIN Oxycodone HCl (Roxicodone -) 10 mg PO Q4H PRN PRN Reason: PAIN Last Admin: 10/31/17 06:29 Dose: 10 mg Senna/Docusate Sodium (Pericolace -) 1 tablet PO BID [facility] Last Admin: 10/30/17 21:18 Dose: 1 tablet - Objective Vital Signs: Vital Signs Temperature 97.3 F L 10/31/17 06:42 Pulse Rate 79 10/31/17 06:42 Respiratory Rate 18 10/31/17 06:42 Blood Pressure 123/79 10/31/17 06:42 O2 Sat by Pulse Oximetry (%) 100 10/30/17 21:00 Constitutional: Yes: Well Nourished Cardiovascular: Yes: WNL Respiratory: Yes: WNL Gastrointestinal: Yes: WNL Labs: CBC, BMP 10/30/17 15:20 10/30/17 15:20 INR, PTT INR 1.12 (0.82-1.09) 10/28/17 20:00 Assessment/Plan Pain adequately controlled, no nausea or vomiting, no adverse effect of anesthetic. Dept of anesthesia will sign off care at this time.
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
[2017-10-31 08:43] LABS: MCH 32.8 pg (25.7-33.7); MCHC 33.4 g/dl (32.0-36.0); MEAN CELL VOLUME 98.2 fl (80-96); MEAN PLT VOLUME 8.4 fl (7.5-11.1); PLATELET COUNT 203 K/MM3 (134-434); RDW 12.4 % (11.6-15.6); WHITE BLOOD COUNT 7.8 K/mm3 (4.0-10.0)
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
[2017-10-31 09:56] LABS: ANION GAP 9 (8-16); CALCIUM 8.6 mg/dL (8.5-10.1); CO2 27 mmol/L (21-32); CREATININE 0.8 mg/dL (0.55-1.02); GLUCOSE,RANDOM 79 mg/dL (74-106)
[2017-10-31] MEDS: POLYETHYLENE GLYCOL 3350 119 GM BTL PO SCH ×2 (09:56→21:26)
[2017-10-31] MEDS: SENNOSIDES/DOCUSATE COMBO (SENNA PLUS) TABLET (UD) PO SCH ×2 (10:10→21:05)
--- NOTE | 2017-10-31 13:29 | MSN ---
Progress Note (short form) - Note Progress Note: Subjective: Patient is doing well and has been gaining strength. Patient walked yesterday with PT and felt numbness on right anterior thigh. Patient also has not had a bowel movement for 2 days. Patient described abdominal/ chest discomfort after eating yesterday which was relieved after given oxygen and after burping. Objective: Last Vital Signs Temp Pulse Resp BP Pulse Ox 99 F 100 H 20 140/90 100 10/31/17 09:52 10/31/17 09:52 10/31/17 09:52 10/31/17 09:52 10/30/17 21:00 General: patient is A&Ox3, in no acute distress and is excited about her recovery HEENT: normocephalic, atraumatic, PERRLA, EOMI, no lymphadenopathy Lungs: CTA B/L. no rales or rhonci Heart: RRR, normal S1 and S2 without rubs, murmurs or gallops Abdomen: normoactive bowel sounds in all 4 quadrants. soft, nontender to palpation. Neuro: CN II-XII intact. Diminished sensation of V1 on right side. Upper Extremities: motor strength 5/5 throughout B/L. Radial pulses 2+ B/L. Biceps reflex 2+ B/L. fine sensation diminished on right arm and forearm. Lower Extremities: motor strength 5/5 throughout B/L. Dorsalis Pedis pulse 2 + B/L. Knee & ankle reflex 1+ B/L. fine sensation diminished on right lateral thigh. Laboratory Last Values WBC 7.8 K/mm3 (4.0-10.0) 10/31/17 06:00 RBC 3.09 M/mm3 (3.60-5.2) L 10/31/17 06:00 Hgb 10.1 GM/dL (10.7-15.3) L 10/31/17 06:00 Hct 30.3 % (32.4-45.2) L 10/31/17 06:00 MCV 98.2 fl (80-96) H 10/31/17 06:00 MCH 32.8 pg (25.7-33.7) 10/31/17 06:00 MCHC 33.4 g/dl (32.0-36.0) 10/31/17 06:00 RDW 12.4 % (11.6-15.6) 10/31/17 06:00 Plt Count 203 K/MM3 (134-434) 10/31/17 06:00 MPV 8.4 fl (7.5-11.1) 10/31/17 06:00 Neutrophils % 68.7 % (42.8-82.8) D 10/30/17 08:00 Lymphocytes % 22.7 % (8-40) D 10/30/17 08:00 Monocytes % 7.8 % (3.8-10.2) 10/30/17 08:00 Eosinophils % 0.3 % (0-4.5) D 10/30/17 08:00 Basophils % 0.5 % (0-2.0) 10/30/17 08:00 ESR 9 mm/hr (0-20) 10/27/17 15:03 PT with INR 12.60 SEC (9.98-11.88) H 10/28/17 20:00 INR 1.12 (0.82-1.09) 10/28/17 20:00 Sodium 143 mmol/L (136-145) 10/31/17 06:00 Potassium 3.8 mmol/L (3.5-5.1) 10/31/17 06:00 Chloride 107 mmol/L (98-107) 10/31/17 06:00 Carbon Dioxide 27 mmol/L (21-32) 10/31/17 06:00 Anion Gap 9 (8-16) 10/31/17 06:00 BUN 7 mg/dL (7-18) 10/31/17 06:00 Creatinine 0.8 mg/dL (0.55-1.02) 10/31/17 06:00 Creat Clearance w eGFR > 60 (>60) 10/30/17 15:20 Random Glucose 79 mg/dL (74-106) D 10/31/17 06:00 Calcium 8.6 mg/dL (8.5-10.1) 10/31/17 06:00 Total Bilirubin 0.7 mg/dL (0.2-1.0) D 10/30/17 15:20 AST 11 U/L (15-37) L 10/30/17 15:20 ALT 10 U/L (12-78) L 10/30/17 15:20 Alkaline Phosphatase 73 U/L (45-117) 10/30/17 15:20 Creatine Kinase 57 IU/L (26-192) 10/27/17 08:10 C-Reactive Protein < 0.3 MG/DL (0.00-0.3) 10/27/17 15:03 Total Protein 6.4 g/dl (6.4-8.2) 10/30/17 15:20 Albumin 3.1 g/dl (3.4-5.0) L 10/30/17 15:20 Vitamin B12 416 pg/ml (180-914) 10/27/17 15:03 Serum Folate 19 ng/ml (3.1-17.5) H 10/27/17 15:03 TSH 1.62 uIU/ml (0.358-3.74) D 10/27/17 15:03 Free T4 1.07 ng/dl (0.76-1.46) 10/27/17 15:03 Free T3 3.0 pg/ml (2.0-4.4) 10/27/17 15:05 Serum , Qual Negative 10/27/17 08:25 CSF Appearance Colorless 10/27/17 10:35 CSF Color Clear 10/27/17 10:35 CSF WBC 0 mm/3 10/27/17 10:35 CSF RBC 0.00 mm/3 10/27/17 10:35 CSF Neutrophils Y 10/27/17 10:35 CSF Glucose 55 mg/dL (50-80) 10/27/17 10:35 CSF Total Protein 22 mg/dL (15-45) 10/27/17 10:35 CSF Myelin Basic Protein 1.0 ng/mL (0.0-1.2) 10/27/17 12:00 Ser Oligoclonal Bands (.) 10/27/17 12:42 CSF VDRL Non reactive (Non Lyons:<1:1) 10/27/17 12:00 CSF Lyme IgG Ab 18 kDa Absent (.) 10/27/17 12:00 CSF Lyme IgG Ab 23 kDa Absent (.) 10/27/17 12:00 CSF Lyme IgG Ab 28 kDa Absent (.) 10/27/17 12:00 CSF Lyme IgG Ab 30 kDa Absent (.) 10/27/17 12:00 CSF Lyme IgG Ab 39 kDa Absent (.) 10/27/17 12:00 CSF Lyme IgG Ab 41 kDa Absent (.) 10/27/17 12:00 CSF Lyme IgG Ab 45 kDa Absent (.) 10/27/17 12:00 CSF Lyme IgG Ab 58 kDa Absent (.) 10/27/17 12:00 CSF Lyme IgG Ab 66 kDa Absent (.) 10/27/17 12:00 CSF Lyme IgG Ab 93 kDa Absent (.) 10/27/17 12:00 CSF Lyme IgM Ab 23 kDa Absent (.) 10/27/17 12:00 CSF Lyme IgM Ab 39 kDa Absent (.) 10/27/17 12:00 CSF Lyme IgM Ab 41 kDa Absent (.) 10/27/17 12:00 CSF Lyme Disease DNA Negative (Negative) 10/27/17 12:00 IgG 1642 mg/dL (700-1600) H 10/27/17 12:42 IgA 177 mg/dL (87-352) 10/27/17 12:42 IgM 283 mg/dL (26-217) H 10/27/17 12:00 ISH Screen Negative (.) 10/27/17 10:00 RPR Titer Nonreactive (NONREACTIVE) 10/27/17 13:00 Lyme Disease IgG/IgM < 0.91 ISR (0.00-0.90) 10/27/17 08:10 Lyme IgG Ab Interpret Negative (.) 10/27/17 12:00 Lyme IgM Ab Index Negative (.) 10/27/17 12:00 HIV 1&2 Antibody Screen Negative 10/29/17 06:30 HIV P24 Antigen Negative 10/29/17 06:30 Blood Type O POSITIVE 10/28/17 20:00 Antibody Screen Negative 10/28/17 20:00 Microbiology 10/28/17 11:03 Blood - Peripheral Venous Blood Culture - Preliminary NO GROWTH OBTAINED AFTER 72 HOURS, INCUBATION TO CONTINUE FOR 2 DAYS. 10/28/17 11:05 Blood - Peripheral Venous Blood Culture - Preliminary NO GROWTH OBTAINED AFTER 72 HOURS, INCUBATION TO CONTINUE FOR 2 DAYS. 10/27/17 11:14 Cerebral Spinal Fluid - Lumbar Puncture Gram Stain - Final 10/27/17 11:14 Cerebral Spinal Fluid - Lumbar Puncture CSF Culture - Final NO GROWTH AFTER 48 HOURS INCUBATION 10/27/17 15:03 Nasopharyngeal Swab Influenza Types A,B Antigen (REDDY) - Final 10/27/17 15:03 Nasopharyngeal Swab - Final Imaging - non contrast head CT on 10/27 showed no pathology - cervical/ thoracic/ lumbar MRI on 10/27 showed a T7-T8 central/ left paramedian disc herniation with mild spinal cord indentation - brain MRI without contrast on 10/28 showed a nonspecific single punctate focus of T2/FLAIR signal in the subinsular white matter. No signal abnormalities to suggest MS. No evidence of infarction, mass effect, midline shift or hydrocephalus. Prominent pituitary gland 10mm. - post-op CT of thoracic spine on 10/29 showed soft tissue swelling and air posteriorly. T8 interpedicular screw. Post op soft tissue changes and drainage catheter present. air around left T7 nerve root. consolidation/atelectasis in dependent portion lung & small b/l pleural effusion mainly inferiorly. Assessment/ Plan: 42yo woman with a hx of L-S1 radiculopathy, recurrent adenoiditis who presents with persistent B/L LE weakness due to mechanical impingement T7-T8 spondylosis. Patient is doing well post-op day 2 and will be monitored for progress. 1) B/L LE weakness, has improved post laminectomy - neurology consulted (Dr. Elke Laurent) - CSF stain, culture and Lyme negative - Lyme IgG/ IgM <0.91 (N: 0-0.9) - IgG 1642 (N: 700-1600), IgA 177 (N: 87-352), IgM 283 (N: 26-217) - RPR nonreactive - HIV 1&2 antibody, HIVp24 antigen are negative - ISH is negative. - CSF oligoclonal bands negative - pending Brucella IgG, IgM. Dengue fever Ab. West Nile virus Ab. Zika virus urine and serum (ordered by Dr. Jluis Zuniga) - T7-T8 laminectomy with transpedicle costotrasnverse decompression and posterior fusion performed by Dr. Daugherty on 10/29/17 2)Post- op management - Ancef 1g in 10mls @120mls/hr - Oxycodone 5mg PO q4h prn pain level 1-5 - Oxycodone 10mg PO q4h prn pain level 6-10. pain being controlled. - acetaminophen 650 mg PO q4h prn pain. pain being controlled. - acetaminophen 325 mg PO q4h prn pain - odansetron HCl 4mg IV push q6h prn nausea/vomit - monitor progress and pain level. - possible HARESH drain removal (follow up with Dr. Mccracken) - PT 3) Constipation, patient has not had a bowel movement for 2 days. - senna/docusate 1tab PO BID 4) DVT prophylaxis - heparin sodium 5000 unit sq TID - SCD 5) FEN - fluid: none - electrolytes: no abnormalities - nutrition: regular diet 6) follow up enlarged pituitary finding outpatient. - pituitary MRI with gadolinium dispo: pending HARESH drain removal. continue PT
--- NOTE | 2017-10-31 14:13 | PN ---
Progress Note (short form) - Note Progress Note: POD#2 Pt oob to chair today for lunch. having occasional nausea no emesis. No BF yet. OOB and ambulating, some right thigh pain with this activity. Vital Signs Period Temp Pulse Resp BP Sys/Slade Pulse Ox Last 24 Hr 97.3 F-99.2 F 79-100 16-20 100-140/75-91 100 HARESH-275ml serosangrenous GEN: A&0x3, NAD oob to chair with TLSO brace Back: dressing changed because aquacel loose on the bottom. 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 5/5 dorsi/plantar flexon b/l. No calf tenderness or swelling noted b/l. CBC, BMP 10/31/17 06:00 10/31/ 06:00 A/P: 42 yo female s/p T7-T8 Laminectomies with transpedicle costotransverse decompression of T7-T8 with T7-T8 posterior fusion doing well surgically continue oral diet OOb/ambulate with PT, wear TLSO brace when oob for >5 minutes Stool softners DVT ppx with Hep SQ
[2017-10-31 14:22] LABS: QFT TB AG - NIL VALUE <0.01 IU/mL (.); QUANT MITOGEN VALUE >10.00 IU/mL (.); QUANT NIL VALUE 0.05 IU/mL (.); QUANT TB AG VALUE 0.04 IU/mL (.); QUANTIFERON GOLD Negative (Negative); WEST NILE VIRUS AB SERUM,IGM Negative (Negative)
--- NOTE | 2017-10-31 14:37 | PN ---
Progress Note, Physician History of Present Illness: OOB in chair No c/o pain Reports increased strength and sensation in LE bilaterally No fever/ chills WBC WNL CSF c/s , CSF-VDRL negative Lyme (-) Viral serologies pending - Current Medication List Current Medications: Active Medications Acetaminophen (Tylenol -) 325 mg PO Q4H PRN PRN Reason: PAIN Stop: 11/01/17 15:57 Acetaminophen (Tylenol -) 650 mg PO Q4H PRN PRN Reason: PAIN Stop: 11/01/17 15:58 Last Admin: 10/31/17 06:33 Dose: 650 mg Acetaminophen (Tylenol -) 650 mg PO Q6H PRN PRN Reason: FEVER OR PAIN Heparin Sodium (Porcine) (Heparin -) 5,000 unit SQ TID [facility] Last Admin: 10/31/17 14:20 Dose: 5,000 unit Cefazolin Sodium (Ancef -) 1 gm in 10 mls @ 120 mls/hr IVPUSH Q8H-IV [facility] Last Admin: 10/31/17 09:56 Dose: 120 mls/hr Ondansetron HCl (Zofran Injection) 4 mg IVPUSH Q6H PRN PRN Reason: NAUSEA AND/OR VOMITING Oxycodone HCl (Roxicodone -) 5 mg PO Q4H PRN PRN Reason: PAIN Oxycodone HCl (Roxicodone -) 10 mg PO Q4H PRN PRN Reason: PAIN Last Admin: 10/31/17 10:41 Dose: 10 mg Polyethylene Glycol (Miralax (For Daily Use) -) 17 gm PO BID [facility] Last Admin: 10/31/17 09:56 Dose: 17 gm Senna/Docusate Sodium (Pericolace -) 1 tablet PO BID [facility] Last Admin: 10/31/17 10:10 Dose: 1 tablet - Objective Vital Signs: Vital Signs Temperature 98.8 F 10/31/17 14:22 Pulse Rate 101 H 10/31/17 14:22 Respiratory Rate 16 10/31/17 14:22 Blood Pressure 145/88 10/31/17 14:22 O2 Sat by Pulse Oximetry (%) 100 10/30/17 21:00 Constitutional: Yes: No Distress Eyes: Yes: Conjunctiva Clear Cardiovascular: Yes: Regular Rate and Rhythm, S1, S2 Respiratory: Yes: CTA Bilaterally Gastrointestinal: Yes: Normal Bowel Sounds, Soft. No: Tenderness Edema: No Labs: CBC, BMP 10/31/17 06:00 10/31/17 06:00 INR, PTT INR 1.12 (0.82-1.09) 10/28/17 20:00 Assessment/Plan Post op T7T8 laminectomy/ decompression/ posterior fusion Doubt mosquito/ tick-related illness Await serologies
--- NOTE | 2017-10-31 15:59 | PN ---
Teaching Attending Note Name of Resident: Shakir Davenport ATTENDING PHYSICIAN STATEMENT I saw and evaluated the patient. I reviewed the resident's note and discussed the case with the resident. I agree with the resident's findings and plan as documented. SUBJECTIVE: pain has improved. no weakness in LE . has some numbness in RLE OBJECTIVE: NAD , AAOx3 CV: RRR 2/6 SM at LLSB Lungs : CTAB ext: no edema Neuro : strength in proximal upper extremities was not fully tested due to pain in back. 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 strength 5/5 in LE proximally and distally . sensation to light touch NL except for lateral R thigh ( decreased ) . Knee jerk 1+ b/l , . 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 1- Central disk herniation , s/p T7-T8 discectomy with decompression and fusion with significant improvement in neuro exam. - Cont oxycodone - OUt of bed with TLCO - Abx while HARESH in - monitor neuro exam 2- Prominent pituitary gland on MRI of head - f/u as out pt for MRI with arely to further evaluate 3- Macrocytic anemia : stable 4- DVT PX : heparin DC pending removal of HARESH drain . cont PT
[2017-10-31 16:42] LABS: BRUCELLA IG-M Negative (Negative)
[2017-10-31] MEDS ORDERED: PT OWN MED DRAWER 7, Y5N ONE (17:40)
[2017-10-31 18:00] LABS: CALCIUM 8.7 mg/dL (8.5-10.1)
[2017-10-31 18:06] LABS: ALBUMIN 3.5 g/dl (3.4-5.0); ALK PHOS 74 U/L (45-117); ANION GAP 8 (8-16); BILIRUBIN,TOTAL 0.7 mg/dL (0.2-1.0); CO2 30 mmol/L (21-32); CREATININE 0.9 mg/dL (0.55-1.02); GLUCOSE,RANDOM 96 mg/dL (74-106); SGOT/AST 12 U/L (15-37); SGPT/ALT 13 U/L (12-78); TOT PROT 7.3 g/dl (6.4-8.2)
[2017-10-31] MEDS ORDERED: SODIUM CHLORIDE 500 ML IV STA (19:51)
--- NOTE | 2017-10-31 21:07 | HOSP ---
Subjective - Review of Symptoms Events since last encounter: Paged by nurse due to episode of severe fatigue, delayed mentation and posterior PLATA. Family at bedside, very concerned about patient. Pt laying in bed , appeared very fatigued with delayed, quiet speech. POD2 s/p thoracic T7-T8 discectomy. Pt states that she had been ambulating from bed to chair multiple times throughout the day and to the bathroom with assistance. While sitting in the chair, pt endorses feeling extremely fatigued and noted her thoughts had become disorganized, with significant delayed in mentation. Pt attempted to call her mother and admitted to struggling to remember how to use the phone. She was unable to alert the nurse, as she was too fatigue to ambulate to the bed and reach the call button. Eventually, she was able to dial the phone and contact her mother, but was unable to appropriately communicate with her, due to her poor mentation and concentration , endorsing mild aphasia. During this episode, Pt also endorsed pain along her back and neck, as well as a posterior PLATA. She also states that she felt the room was spinning and felt very lightheaded. She denies any changes in vision, new CP, SOB, dyspnea, fever/chills, LOC, palpitations, swelling in legs, or new focal neurologic deficits. Pt's mother became concerned and immediately traveled to hospital. Pt endorses improved mentation w/ no further dizziness, but still endorses fatigue and midline back pain and posterior PLATA, which she states has improved slightly. On exam, vitals were BP 150/98, HR 118, Temp 99.4, pulse Ox 99% on RA General: Yes: Fatigue HEENT: Yes: Head Aches (Posterior PLATA; now resolved; coincided with episode of aphasia) Pulmonary: No: Dyspnea, Cough Cardiovascular: No: Chest Pain, Palpitations Gastrointestinal: No: Nausea, Vomiting, Abdominal Pain Musculoskeletal: No: No Symptoms Neurological: Yes: Weakness, Change in speech Physical Examination Vital Signs: Vital Signs Temperature 99.4 F 10/31/17 16:56 Pulse Rate 99 H 10/31/17 16:56 Respiratory Rate 18 10/31/17 16:56 Blood Pressure 137/88 10/31/17 16:56 O2 Sat by Pulse Oximetry (%) 97 10/31/17 09:00 Constitutional: Yes: Other (Lethargic w/ delay in speech/mentation) Eyes: Yes: WNL, Conjunctiva Clear, EOM Intact, PERRL HENT: Yes: WNL, Atraumatic, Normocephalic Neck: Yes: WNL, Supple. No: Tenderness Cardiovascular: Yes: WNL, Tachycardia, S1 (Prominent S1), S2. No: Gallop, Murmur, Rub Respiratory: Yes: WNL, Regular, CTA Bilaterally. No: Accessory Muscle Use, SOB , Tachypnea Gastrointestinal: Yes: WNL, Normal Bowel Sounds, Soft. No: Tenderness, Vomiting Extremities: No: Calf Tenderness, Cold, Cool Peripheral Pulses: Left Radial: 2+, Right Radial: 2+, Left Doralis Pedis: 2+, Right Dorsalis Pedis: 2+, Left Femoral: 2+, Right Femoral: 2+ Integumentary: Yes: WNL Wound/Incision: Yes: Clean/Dry, Well Approximated Neurological: Yes: Cran Nerves II-XII Intact, Lethargy, Weakness. No: Dysarthria, Facial Droop ...Motor Strength: WNL, LUE (5/5 in all muscle groups, preserved sensation to light touch, 2+ biceps reflexes), LLE (5/5 in all muscle groups, preserved sensation to light touch, 1+ patellar reflexes), RUE (5/5 in all muscle groups, preserved sensation to light touch, 2+ biceps reflexes), RLE (5/5 in all muscle groups, preserved sensation to light touch, 1+ patellar reflexes) Psychiatric: Yes: WNL, Alert (A&Ox3), Oriented Labs: CBC, BMP 10/31/17 06:00 10/31/17 16:00 Hospitalist Encounter Assessment: Assessment: Given POD2 status, posterior PLATA w/ fatigue and disorganized thought/depressed mentation, as well as HARESH drain with 275 serosanguinous drainage, must consider possible CSF leak/depletion given recent neurosurgery. Must also consider post- operative hypoglycemia, infection or possible psychic component. Pt symptoms similar to initial presentation of extreme fatigue and disordered thought, w/ aphasia w/ family members. Pt still w/ fatigue and moderate lethargy, however physical exam w/ no focal neuro deficits or acute changes. Pt stable, will require close monitoring and f/u with neurosurgical team. Signout given to covering night team, aware of situation and necessary follow- up. Ordered for stat BG and NS bolus. Case discussed with attending, Dr. Villalba. Recommended plan: - f/u BGM - Notify neurosurgery (Dr. Horn) - CBC, BMP - Consider CT scan - Serial neuro exams Q2h - Close monitoring Visit type - Emergency Visit Emergency Visit: Yes ED Registration Date: 10/27/17 Care time: The patient presented to the Emergency Department on the above date and was hospitalized for further evaluation of their emergent condition. - New Patient This patient is new to me today: No - Critical Care Critical Care patient: No
[2017-11-01] MEDS: CEFAZOLIN 1 GM PUSH 1 GM/10 ML DISP.SYRIN IVPUSH SCH ×3 (02:25→17:23)
[2017-11-01] MEDS: HEPARIN NA (PORCINE) 5,000 UNITS/ML 1ML VIAL SQ SCH ×2 (05:43→14:33)
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
[2017-11-01] MEDS: POLYETHYLENE GLYCOL 3350 119 GM BTL PO SCH (10:34)
[2017-11-01] MEDS: SENNOSIDES/DOCUSATE COMBO (SENNA PLUS) TABLET (UD) PO SCH (10:34)
[2017-11-01] MEDS: ACETAMINOPHEN 325 MG TABLET (FP) PO PRN (11:32)
[2017-11-01 11:33] LABS: BASO % 0.8 % (0-2.0); EOS % 1.2 % (0-4.5); MCH 32.2 pg (25.7-33.7); MCHC 33.2 g/dl (32.0-36.0); MEAN CELL VOLUME 96.9 fl (80-96); MEAN PLT VOLUME 8.3 fl (7.5-11.1); NEUT % 64.8 % (42.8-82.8); PLATELET COUNT 233 K/MM3 (134-434); RDW 12.9 % (11.6-15.6); WHITE BLOOD COUNT 6.8 K/mm3 (4.0-10.0)
--- NOTE | 2017-11-01 12:00 | PN ---
Progress Note, Physician History of Present Illness: OOB in chair Reports increased strength and sensation in LE bilaterally No fever/ chills WBC WNL CSF c/s , CSF-VDRL negative. Lyme (-) CSF WNV (-) Brucella (-) WNV(-) HIV (-) Quantiferon (-) - Current Medication List Current Medications: Active Medications Acetaminophen (Tylenol -) 325 mg PO Q4H PRN PRN Reason: PAIN Stop: 11/01/17 15:57 Acetaminophen (Tylenol -) 650 mg PO Q4H PRN PRN Reason: PAIN Stop: 11/01/17 15:58 Last Admin: 11/01/17 11:32 Dose: 650 mg Acetaminophen (Tylenol -) 650 mg PO Q6H PRN PRN Reason: FEVER OR PAIN Last Admin: 11/01/17 02:50 Dose: 650 mg Heparin Sodium (Porcine) (Heparin -) 5,000 unit SQ TID [facility] Last Admin: 11/01/17 05:43 Dose: 5,000 unit Cefazolin Sodium (Ancef -) 1 gm in 10 mls @ 120 mls/hr IVPUSH Q8H-IV [facility] Last Admin: 11/01/17 11:32 Dose: 120 mls/hr Ondansetron HCl (Zofran Injection) 4 mg IVPUSH Q6H PRN PRN Reason: NAUSEA AND/OR VOMITING Polyethylene Glycol (Miralax (For Daily Use) -) 17 gm PO BID [facility] Last Admin: 11/01/17 10:34 Dose: 17 gm Senna/Docusate Sodium (Pericolace -) 1 tablet PO BID [facility] Last Admin: 11/01/17 10:34 Dose: 1 tablet - Objective Vital Signs: Vital Signs Temperature 99 F 11/01/17 10:03 Pulse Rate 93 H 11/01/17 10:03 Respiratory Rate 20 11/01/17 10:03 Blood Pressure 143/93 11/01/17 10:03 O2 Sat by Pulse Oximetry (%) 98 10/31/17 21:00 Constitutional: Yes: Mild Distress Eyes: Yes: Conjunctiva Clear Cardiovascular: Yes: Regular Rate and Rhythm, S1, S2 Respiratory: Yes: CTA Bilaterally Gastrointestinal: Yes: Normal Bowel Sounds, Soft. No: Tenderness Edema: No Labs: CBC, BMP 11/01/17 11:23 10/31/17 16:00 INR, PTT INR 1.12 (0.82-1.09) 10/28/17 20:00 Assessment/Plan Post op T7T8 laminectomy/ decompression/ posterior fusion Work up for tick/ mosquito related illness negative Please re-call as needed
--- NOTE | 2017-11-01 15:02 | MSN ---
Progress Note (short form) - Note Progress Note: Subjective: Patient states that she is better than last night and has more energy after being given IV NS. She still has residual pain on her posterior neck. Patient has not had a bowel movement in 3 days even with miralax yesterday but has been able to pass gas. Objective: Last Vital Signs Temp Pulse Resp BP Pulse Ox 99 F 93 H 20 143/93 98 11/01/17 10:03 11/01/17 10:03 11/01/17 10:03 11/01/17 10:03 10/31/17 21:00 General: patient is A&Ox3, in no acute distress HEENT: normocephalic, atraumatic, PERRLA, EOMI, no lymphadenopathy Lungs: CTA B/L. no rales or rhonci Heart: RRR, normal S1 and S2 without rubs, murmurs or gallops Abdomen: normoactive bowel sounds in all 4 quadrants. soft, nontender to palpation. Neuro: CN II-XII intact. Diminished sensation of V1 on right side. Upper Extremities: motor strength 5/5 throughout B/L. Radial pulses 2+ B/L. Biceps reflex 2+ B/L. sensation diminished on right arm but has improved since yesterday. Lower Extremities: motor strength 5/5 throughout B/L. Dorsalis Pedis pulse 2 + B/L. Knee & ankle reflex 1+ B/L. numbness still present on right upper thigh but has improved significantly since yesterday. Laboratory Last Values WBC 6.8 K/mm3 (4.0-10.0) 11/01/17 11:23 RBC 3.42 M/mm3 (3.60-5.2) L 11/01/17 11:23 Hgb 11.0 GM/dL (10.7-15.3) 11/01/17 11:23 Hct 33.1 % (32.4-45.2) 11/01/17 11:23 MCV 96.9 fl (80-96) H 11/01/17 11:23 MCH 32.2 pg (25.7-33.7) 11/01/17 11:23 MCHC 33.2 g/dl (32.0-36.0) 11/01/17 11:23 RDW 12.9 % (11.6-15.6) 11/01/17 11:23 Plt Count 233 K/MM3 (134-434) 11/01/17 11:23 MPV 8.3 fl (7.5-11.1) 11/01/17 11:23 Neutrophils % 64.8 % (42.8-82.8) 11/01/17 11:23 Lymphocytes % 26.3 % (8-40) 11/01/17 11:23 Monocytes % 6.9 % (3.8-10.2) 11/01/17 11:23 Eosinophils % 1.2 % (0-4.5) D 11/01/17 11:23 Basophils % 0.8 % (0-2.0) 11/01/17 11:23 ESR 9 mm/hr (0-20) 10/27/17 15:03 PT with INR 12.60 SEC (9.98-11.88) H 10/28/17 20:00 INR 1.12 (0.82-1.09) 10/28/17 20:00 Sodium 140 mmol/L (136-145) 10/31/17 16:00 Potassium 3.7 mmol/L (3.5-5.1) 10/31/17 16:00 Chloride 102 mmol/L (98-107) 10/31/17 16:00 Carbon Dioxide 30 mmol/L (21-32) 10/31/17 16:00 Anion Gap 8 (8-16) 10/31/17 16:00 BUN 6 mg/dL (7-18) L 10/31/17 16:00 Creatinine 0.9 mg/dL (0.55-1.02) 10/31/17 16:00 Creat Clearance w eGFR > 60 (>60) 10/31/17 16:00 Random Glucose 96 mg/dL (74-106) D 10/31/17 16:00 Calcium 8.7 mg/dL (8.5-10.1) 10/31/17 16:00 Total Bilirubin 0.7 mg/dL (0.2-1.0) 10/31/17 16:00 AST 12 U/L (15-37) L 10/31/17 16:00 ALT 13 U/L (12-78) D 10/31/17 16:00 Alkaline Phosphatase 74 U/L (45-117) 10/31/17 16:00 Creatine Kinase 57 IU/L (26-192) 10/27/17 08:10 C-Reactive Protein < 0.3 MG/DL (0.00-0.3) 10/27/17 15:03 Total Protein 7.3 g/dl (6.4-8.2) 10/31/17 16:00 Albumin 3.5 g/dl (3.4-5.0) 10/31/17 16:00 Vitamin B12 416 pg/ml (180-914) 10/27/17 15:03 Serum Folate 19 ng/ml (3.1-17.5) H 10/27/17 15:03 TSH 1.62 uIU/ml (0.358-3.74) D 10/27/17 15:03 Free T4 1.07 ng/dl (0.76-1.46) 10/27/17 15:03 Free T3 3.0 pg/ml (2.0-4.4) 10/27/17 15:05 Serum , Qual Negative 10/27/17 08:25 CSF Appearance Colorless 10/27/17 10:35 CSF Color Clear 10/27/17 10:35 CSF WBC 0 mm/3 10/27/17 10:35 CSF RBC 0.00 mm/3 10/27/17 10:35 CSF Neutrophils Y 10/27/17 10:35 CSF Glucose 55 mg/dL (50-80) 10/27/17 10:35 CSF Total Protein 22 mg/dL (15-45) 10/27/17 10:35 CSF Myelin Basic Protein 1.0 ng/mL (0.0-1.2) 10/27/17 12:00 Ser Oligoclonal Bands (.) 10/27/17 12:42 CSF VDRL Non reactive (Non [place]:<1:1) 10/27/17 12:00 CSF Lyme IgG West Blot Y 10/27/17 12:00 CSF Lyme IgG Ab 18 kDa Absent (.) 10/27/17 12:00 CSF Lyme IgG Ab 23 kDa Absent (.) 10/27/17 12:00 CSF Lyme IgG Ab 28 kDa Absent (.) 10/27/17 12:00 CSF Lyme IgG Ab 30 kDa Absent (.) 10/27/17 12:00 CSF Lyme IgG Ab 39 kDa Absent (.) 10/27/17 12:00 CSF Lyme IgG Ab 41 kDa Absent (.) 10/27/17 12:00 CSF Lyme IgG Ab 45 kDa Absent (.) 10/27/17 12:00 CSF Lyme IgG Ab 58 kDa Absent (.) 10/27/17 12:00 CSF Lyme IgG Ab 66 kDa Absent (.) 10/27/17 12:00 CSF Lyme IgG Ab 93 kDa Absent (.) 10/27/17 12:00 CSF Lyme IgM [place]ot Y 10/27/17 12:00 CSF Lyme IgM Ab 23 kDa Absent (.) 10/27/17 12:00 CSF Lyme IgM Ab 39 kDa Absent (.) 10/27/17 12:00 CSF Lyme IgM Ab 41 kDa Absent (.) 10/27/17 12:00 CSF Lyme Disease DNA Negative (Negative) 10/27/17 12:00 CSF West Nile IgG Ab Negative (Negative) 10/28/17 10:35 CSF West Nile IgM Ab Negative (Negative) 10/28/17 10:35 IgG 1642 mg/dL (700-1600) H 10/27/17 12:42 IgA 177 mg/dL (87-352) 10/27/17 12:42 IgM 283 mg/dL (26-217) H 10/27/17 12:00 ISH Screen Negative (.) 10/27/17 10:00 RPR Titer Nonreactive (NONREACTIVE) 10/27/17 13:00 Lyme Disease IgG/IgM < 0.91 ISR (0.00-0.90) 10/27/17 08:10 Lyme IgG Ab Interpret Negative (.) 10/27/17 12:00 Lyme IgM Ab Index Negative (.) 10/27/17 12:00 Brucella IgG Antibody Negative (Negative) 10/29/17 06:30 Brucella IgM Antibody Negative (Negative) 10/29/17 06:30 West Nile Virus IgG Ab Negative (Negative) 10/29/17 06:30 West Nile Virus IgM Ab Negative (Negative) 10/29/17 06:30 HIV 1&2 Antibody Screen Negative 10/29/17 06:30 HIV P24 Antigen Negative 10/29/17 06:30 TB Test (QFT) Negative (Negative) 10/29/17 06:30 Blood Type O POSITIVE 10/28/17 20:00 Antibody Screen Negative 10/28/17 20:00 Microbiology 10/28/17 11:03 Blood - Peripheral Venous Blood Culture - Preliminary NO GROWTH OBTAINED AFTER 96 HOURS, INCUBATION TO CONTINUE FOR 1 DAYS. 10/28/17 11:05 Blood - Peripheral Venous Blood Culture - Preliminary NO GROWTH OBTAINED AFTER 96 HOURS, INCUBATION TO CONTINUE FOR 1 DAYS. 10/27/17 11:14 Cerebral Spinal Fluid - Lumbar Puncture Gram Stain - Final 10/27/17 11:14 Cerebral Spinal Fluid - Lumbar Puncture CSF Culture - Final NO GROWTH AFTER 48 HOURS INCUBATION 10/27/17 15:03 Nasopharyngeal Swab Influenza Types A,B Antigen (REDDY) - Final 10/27/17 15:03 Nasopharyngeal Swab - Final Imaging - non contrast head CT on 10/27 showed no pathology - cervical/ thoracic/ lumbar MRI on 10/27 showed a T7-T8 central/ left paramedian disc herniation with mild spinal cord indentation - brain MRI without contrast on 10/28 showed a nonspecific single punctate focus of T2/FLAIR signal in the subinsular white matter. No signal abnormalities to suggest MS. No evidence of infarction, mass effect, midline shift or hydrocephalus. Prominent pituitary gland 10mm. - post-op CT of thoracic spine on 10/29 showed soft tissue swelling and air posteriorly. T8 interpedicular screw. Post op soft tissue changes and drainage catheter present. air around left T7 nerve root. consolidation/atelectasis in dependent portion lung & small b/l pleural effusion mainly inferiorly. Assessment/ Plan: 42yo woman with a hx of L-S1 radiculopathy, recurrent adenoiditis who presents with persistent B/L LE weakness due to mechanical impingement T7-T8 spondylosis. Patient is doing well post-op day 3. 1) B/L LE weakness, has improved post laminectomy - neurology consulted (Dr. Elke Laurent) - CSF stain, culture and Lyme negative - Lyme IgG/ IgM <0.91 (N: 0-0.9) - IgG 1642 (N: 700-1600), IgA 177 (N: 87-352), IgM 283 (N: 26-217) - RPR nonreactive - HIV 1&2 antibody, HIVp24 antigen are negative - ISH is negative. - CSF oligoclonal bands negative - Brucella IgG, IgM. Dengue fever Ab. West Nile virus Ab. Zika virus urine and serum are all negative (ordered by Dr. Jlius Zuniga) - T7-T8 laminectomy with transpedicle costotransverse decompression and posterior fusion performed by Dr. Daugherty on 10/29/17 2)Post- op management - Ancef 1g in 10mls @120mls/hr - acetaminophen 650 mg PO q4h prn pain. pain being controlled. - acetaminophen 325 mg PO q4h prn pain - odansetron HCl 4mg IV push q6h prn nausea/vomit - HARESH drain removal today (per Dr. Mccracken) prior to discharge. - PT 3) Constipation, patient has not had a bowel movement for 3 days. - senna/docusate 1tab PO BID 4) FEN - fluid: none - electrolytes: no abnormalities - nutrition: regular diet 5) follow up enlarged pituitary finding outpatient. - pituitary MRI with gadolinium dispo: HARESH drain removal prior to discharge
--- NOTE | 2017-11-01 15:06 | PATH ---
Surgical Pathology Report Patient Name: REGLA ROSARIO Med. Rec. #: [id number] /Age/Gender: 1975 (Age: 42) / F Account: [id number] Location: [facility] MED/SURG Taken: 10/29/2017 Received: 10/30/2017 Reported: 11/01/2017 Physicians: Keira Andrews M.D. Specimen(s) Received DISC TISSUE T7-T8 Clinical History Thoracic spondylosis T7-T8 disc herniation Final Diagnosis INTERVERTEBRAL DISC, T7-8, PARTIAL EXCISION: FIBROCARTILAGINOUS TISSUE CONSISTENT WITH PORTIONS OF INTERVERTEBRAL DISC, AND PORTIONS OF BONE. Electronically Signed Deshawn Dorantes M.D. Gross Description Received in formalin labeled "disc tissue T7-T8," is a 1.5 x 1.2 x 0.3 cm aggregate of snyder fragments of fibrocartilaginous tissue and possible bone. The specimen is submitted in toto in one cassette, following decalcification. 10/31/2017 [facility]
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
--- NOTE | 2017-11-01 15:44 | PN ---
Teaching Attending Note Name of Resident: Shakir Davenport ATTENDING PHYSICIAN STATEMENT I saw and evaluated the patient. I reviewed the resident's note and discussed the case with the resident. I agree with the resident's findings and plan as documented. SUBJECTIVE: No fever or chills. Had an episode of occipital PLATA yesterday evening, given IVF and improved. now has no PLATA , no change in vision , no photophobia or any weakness, . her numbness in RLE has improved . OBJECTIVE: NAD , AAOx3 , no neck rigidity. TTP over paraspinal muscles in neck area . no TTP over spine CV: RRR 2/6 SM at LLSB Lungs : CTAB ext: no edema Neuro : strength in proximal 5/5 today . 5/5 in biceps and triceps and wrist flexion /extension as well as hand pot filler. strength 5/5 in LE proximally and distally . sensation to light touch NL except for lateral R thigh ( decreased ) . Knee jerk 1+ b/l , . 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 1- Central disk herniation , s/p T7-T8 discectomy with decompression and fusion with significant improvement in neuro exam. - off oxycodone due to dizziness - OUt of bed with TLCO - HARESH will be removed today. d/w Dr. Little - tylenol for pain at home 2- Prominent pituitary gland on MRI of head - f/u as out pt for MRI with arely to further evaluate 3- Macrocytic anemia : stable Dispo : will dc home after removal of HARESH drain.
[2017-11-01] MEDS ORDERED: ACETAMINOPHEN 325 MG TABLET (FP) PO ONE (16:53)
[2017-11-01 17:04] LABS: ANION GAP 7 (8-16); CALCIUM 8.7 mg/dL (8.5-10.1); CO2 28 mmol/L (21-32); CREATININE 0.9 mg/dL (0.55-1.02); GLUCOSE,RANDOM 100 mg/dL (74-106); SGOT/AST 16 U/L (15-37); SGPT/ALT 15 U/L (12-78)
[2017-11-01 17:05] LABS: ALK PHOS 71 U/L (45-117); BILIRUBIN,TOTAL 0.4 mg/dL (0.2-1.0); TOT PROT 6.5 g/dl (6.4-8.2)
[2017-11-01 17:10] VITALS: BP 148/87; PULSE 105; TEMP 98.7
--- NOTE | 2017-11-01 17:12 | PROC ---
Procedure Note Procedure: Mahin Drain removed from right paravetebral area thoracic spine. Drain with tip fully intact, 10cc SS discharge in bulb. Drain site c/d/i dressed with steris, 4x4 and op site. Incision site upper thoracic, c/d/i with no d/c or erythema, no fluctuance-jeanine insitu. Dermabond applied and redressed with aquacell. Patient tolerated the procedure well.
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
[2017-11-02 00:06] LABS: DENGUE FEVER VIRUS AB.IGG 1.06 ISR (<1.65); DENGUE FEVER VIRUS AB.IGM 1.42 ISR (<1.65)
[2017-11-06 10:14] LABS: ZIKA VIRUS SER. Negative (Negative); ZIKA VIRUS UR. Negative (Negative)
== END 2017-11-01 19:04 | disposition home or self-care (01) | DRG 460 ==
LOC: JER 07:29 → JERBED 13:34 → J5S 17:44 → JSAMEDAYSX 10-29 15:00 → J8W 10-29 17:30
PROVIDERS: ADMIT Internal Medicine; ATTEND Internal Medicine
PROC: 009U3ZZ Drainage of Spinal Canal, Percutaneous Approach (ICD-10-PCS; principal; 2017-10-27)
PROC: 0RG6071 Fusion of Thoracic Vertebral Joint with Autologous Tissue Substitute, Posterior Approach, Posterior Column, Open Approach (ICD-10-PCS; 2017-10-29)
PROC: 0JX70ZZ Transfer Back Subcutaneous Tissue and Fascia, Open Approach (ICD-10-PCS; 2017-10-29)
PROC: 01N80ZZ Release Thoracic Nerve, Open Approach (ICD-10-PCS; 2017-10-29)
PROC: 00PUX0Z Removal of Drainage Device from Spinal Canal, External Approach (ICD-10-PCS; 2017-11-01)
DX: M51.24 Other intervertebral disc displacement, thoracic region (principal); D57.3 Sickle-cell trait; E55.9 Vitamin D deficiency, unspecified; K59.09 Other constipation; M54.5 Low back pain; M47.894 Other spondylosis, thoracic region; M41.84 Other forms of scoliosis, thoracic region; D64.9 Anemia, unspecified
CPT/HCPCS: 36415; 70450-TC; 70551-TC; 72128-TC; 72156-TC; 72157-TC; 72158-TC; 76000-TC; 80048; 80053; 82550; 82607; 82746; 82784; 82945; 83873; 83916; 84157; 84439; 84443; 84481; 84703; 85025; 85027; 85610; 85651; 86038; 86140; 86480; 86592; 86593; 86617; 86622; 86788; 86789; 86790; 86850; 86900; 86901; 87040; 87070; 87205; 87389; 87476; 87804; 88304-TC; 88311-TC; 89050; 93005; 93010; 94010; 94760; 97116-GP; 97161-GP; 99285-25; A9576; J1644

== ENCOUNTER 2017-11-10 16:05 | Emergency (ER) | payer BC ==
[2017-11-10 16:13] VITALS: BP 145/85; PULSE 99; TEMP 98.4; BMI 23.6
--- NOTE | 2017-11-10 16:31 | PDOC ---
History of Present Illness - History of Present Illness Initial Comments: 11/10/17 16:37 42yo F hx back pain s/p T7-T8 Laminectomies with transpedicle costotransverse decompression of T7-T8 with T7-T8 posterior fusion on 10/29/17 (Dr. Wharton) p/ w a lump on UE and LE that she is concerned are DVTs. Pt noticed a lump on her R anterior mid thigh 3 days ago and a lump on her posterior R arm today. She called up to the floor where she was admitted and was advised to come to the ED. Reports both sites may have been where she received her blood thinning shots while in the hospital. She denies CP/SOB. Reports some back pain that wraps around to her LUQ but states that she has had this since her surgery. Denies fevers/chills. Denies abd pain, N/V/D, focal weakness or numbness. States she has been much more mobile since her back surgery. <Destiney Roman - Last Filed: 11/10/17 20:37> <Ladi Brewer - Last Filed: 11/10/17 23:03> - General Chief Complaint: Revisit,Radiology Variance Stated Complaint: POST SURGERY Time Seen by Provider: 11/10/17 16:19 Past History - Past Medical History COPD: No Other medical history: pituitary tumor - Surgical History Abdominal Surgery: Yes (OPEN FALLOPIAN TUBE) Orthopedic Surgery: Yes - Family Disease History Family Disease History: CA: Grandparents (maternal grandparents colon CA, M grandfather prostate ca is 100 years old, paternal grandparents) - Reproductive History Cervical CA: No - Immunization History Td Vaccination: Yes Immunization Up to Date: Yes - Suicide/Smoking/Psychosocial Hx Smoking Status: No Smoking History: Never smoked Have you smoked in the past 12 months: No Number of Cigarettes Smoked Daily: 1 Information on smoking cessation initiated: No Hx Alcohol Use: No Drug/Substance Use Hx: No Substance Use Type: None <Destiney Roman - Last Filed: 11/10/17 20:37> <Ladi Brewer - Last Filed: 11/10/17 23:03> - Past Medical History Allergies/Adverse Reactions: Allergies Allergy/AdvReac Type Severity Reaction Status Date / Time No Known Drug Allergies Allergy Verified 12/24/17 16:13 shellfish derived Allergy Verified 11/10/17 16:13 Home Medications: Ambulatory Orders Ibuprofen [Motrin -] 600 mg PO TID 09/24/16 Acetaminophen [Tylenol .Regular Strength -] 650 mg PO Q4H PRN tablet 11/01/17 Sennosides/Docusate Sodium [Pericolace -] 1 tablet PO BID tablet 11/01/17 Review of Systems - Review of Systems Able to Perform ROS?: Yes Comments:: 11/10/17 23:02 GENERAL/CONSTITUTIONAL: No fever or chills. No weakness. HEAD, EYES, EARS, NOSE AND THROAT: No change in vision. No ear pain or discharge. No sore throat. GASTROINTESTINAL: No nausea, vomiting, diarrhea or constipation. GENITOURINARY: No dysuria, frequency, or change in urination. CARDIOVASCULAR: No chest pain or shortness of breath. RESPIRATORY: No cough, wheezing, or hemoptysis. MUSCULOSKELETAL: +Back pain that wraps around to LUQ. +Lump on her R anterior mid thigh. +Lump on her posterior R arm. No joint or muscle swelling or pain. No neck pain. SKIN: No rash NEUROLOGIC: No headache, vertigo, loss of consciousness, or change in strength/ sensation. ENDOCRINE: No increased thirst. No abnormal weight change. HEMATOLOGIC/LYMPHATIC: No anemia, easy bleeding, or history of blood clots. ALLERGIC/IMMUNOLOGIC: No hives or skin allergy. All Other Systems: Reviewed and Negative <Ladi Brewer - Last Filed: 11/10/17 23:03> *Physical Exam - Vital Signs Last Vital Signs Temp Pulse Resp BP Pulse Ox 98.4 F 99 H 18 145/85 100 11/10/17 16:08 11/10/17 16:08 11/10/17 16:08 11/10/17 16:08 11/10/17 16:08 - Physical Exam Comments: 11/10/17 17:24 GENERAL: Awake, alert, and fully oriented, in no acute distress HEAD: No signs of trauma EYES: PERRLA, EOMI, sclera anicteric, conjunctiva clear ENT: Auricles normal inspection, hearing grossly normal, nares patent, oropharynx clear without exudates. Moist mucosa NECK: Normal ROM, supple, no lymphadenopathy, JVD, or masses LUNGS: Breath sounds equal, clear to auscultation bilaterally. No wheezes, and no crackles HEART: Regular rate and rhythm, normal S1 and S2, no murmurs, rubs or gallops ABDOMEN: Soft, nontender, normoactive bowel sounds. No guarding, no rebound. No masses EXTREMITIES: Normal range of motion, no edema. No clubbing or cyanosis. No cords, erythema, or tenderness. R proximal posterior arm with <1cm palpable non tender subcutaneous nodule. R mid anterior thigh with no palpable nodules. BACK: thoracic spine with dressing, appears clean with no bleeding, cervical and thoracic spine w no midline ttp NEUROLOGICAL: Normal speech, cranial nerves intact, negative pronator drift, 5/ 5 strength in all 4 extremities, normal sensation to light touch in all 4 extremities, normal cerebellar exam, normal gait, normal reflexes and tone SKIN: Warm, Dry, normal turgor, no rashes or lesions noted. <Destiney Roman - Last Filed: 11/10/17 20:37> - Vital Signs Last Vital Signs Temp Pulse Resp BP Pulse Ox 98.4 F 99 H 18 145/85 100 11/10/17 16:08 11/10/17 16:08 11/10/17 16:08 11/10/17 16:08 11/10/17 16:08 <Ladi Brewer - Last Filed: 11/10/17 23:03> ED Treatment Course - RADIOLOGY Radiology Studies Ordered: Category Date Time Status DUPLEX VASCUL US-1 ARM [US] Stat Ultrasound 11/10/17 16:28 Ordered DUPLEX VASCUL US-1 LEG [US] Stat Ultrasound 11/10/17 16:28 Ordered <Destiney Roman - Last Filed: 11/10/17 20:37> Medical Decision Making - Medical Decision Making 11/10/17 16:45 42yo F recent T7-8 laminectomy p/w lumps to R anterior thigh and posterior arm that she is concerned are DVTs. Vitals wnl, exam with palpable non tender subcutaneous <1cm nodule in R posterior arm but nothing palpable to RLE. This is likely scarring from her AC injections but given recent surgery, will obtain US to r/o DVT. Pt declines pain medications for now 11/10/17 20:25 Ultrasound of the right upper extremity with possible lipoma in the area of the palpable nodule. No DVT. Right lower extremity ultrasound negative for DVT. Case discussed with Dr. Carrillo's nurse practitioner. She spoke with Dr. Wharton who recommends referral to Dr. Guthrie from vas surgery. Referral placed in DC paperwork. Patient informed of results and requests discharge home. I discussed the physical exam findings, ancillary test results and final diagnoses with the patient. I answered all of the patient's questions. The patient was satisfied with the care received and felt comfortable with the discharge plan and treatment plan. The patient will call their primary care physician within 24 hours to arrange follow-up and will return to the Emergency Department with any new, persistent or worsening symptoms. <Destiney Roman - Last Filed: 11/10/17 20:37> - Medical Decision Making 11/10/17 5:15pm Call placed to 's answering service, awaiting call back. 5:54pm Second call was placed to Dr. Horn's answering service to update on the patient, however, [place] 11/10/17 18:32 EXAM: Ultrasound venous duplex unilateral HISTORY: possible DVT REPORT: No DVT is seen at the right lower extremity. Read by: Quincy Gr MD 5:57pm Case was discussed with Dr. Horn's nurse practitioner, Valeri Foster. Patient's case was updated. She agreed with the plan and assessment. Informed to follow up with Dr. Horn. EXAM: Ultrasound venous duplex, unilateral HISTORY: Extremity swelling, possible DVT REPORT: No sign of DVT at right upper extremity. Some images obtained at area of lump show a small hyperechoic area up to 1 cm, possibly a lipoma. Read by: Quincy Gr MD <Ladi Brewer - Last Filed: 11/10/17 23:03> *DC/Admit/Observation/Transfer - Discharge Dispostion Admit: No - Attestations Physician Attestion: 11/10/17 20:30 I, Dr. Destiney Roman MD, attest that this document has been prepared under my direction and personally reviewed by me in its entirety. I further attest, that it accurately reflects all work, treatment, procedures and medical decision -making performed by me. <Destiney Roman - Last Filed: 11/10/17 20:37> - Attestations Scribe Attestion: 11/10/17 17:16 Documentation prepared by Ladi Brewer, acting as medical interpreter for Destiney Roman MD, . <Ladi Brewer - Last Filed: 11/10/17 23:03> Diagnosis at time of Disposition: Arm anomaly - Discharge Dispostion Disposition: HOME Condition at time of disposition: Stable - Referrals Referrals: Kiko Benitez MD [Primary Care Provider] - Madhu Guthrie MD [Staff Physician] - - Patient Instructions Additional Instructions: Follow-up with Dr. Carrillo for your scheduled post op appointment. He would like you to follow up with Dr. Guthrie from vascular surgery within 1-2 weeks. Also, follow up with your primary care doctor within 1 week. Return to the emergency department if you have any new, worsening or concerning symptoms.
== END 2017-11-10 20:58 | disposition home or self-care (01) ==
LOC: JER 16:05
DX: R22.31 Localized swelling, mass and lump, right upper limb (principal); R22.41 Localized swelling, mass and lump, right lower limb; Z98.890 Other specified postprocedural states
CPT/HCPCS: 93971; 93971-TC; 99282-25

== ENCOUNTER 2019-02-15 18:29 | Emergency (ER) | payer OTHER ==
[2019-02-15 18:33] VITALS: TEMP 97.7; BMI 24.1
--- NOTE | 2019-02-15 19:12 | PDOC ---
History of Present Illness - General Chief Complaint: Back Pain Stated Complaint: BACK PAIN/SHORTNESS OF BREATH Time Seen by Provider: 02/15/19 19:08 - History of Present Illness Initial Comments: 02/15/19 19:12 Ms. Rodriguez is a 43 yo female w/ pmh of T7-T8 laminectomies w/ transpedicle costotransverse decompression of T7-T8 with T7-T8 posterior fusion on 10/29/17 ( Dr. Wharton) who presents for evaluation of 3-4 day history of constant chest pressure as well as intermittent palpitations and shortness of breath. Patient describes chest pressure as crushing. Patient also has coinciding back pain radiating to her legs that she reports is chronic. Denies other complaints at this time. The patient denies headache and dizziness. Denies fever, chills, nausea, vomit, diarrhea and constipation. Denies dysuria, frequency, urgency and hematuria. Past History - Past Medical History Allergies/Adverse Reactions: Allergies Allergy/AdvReac Type Severity Reaction Status Date / Time No Known Drug Allergies Allergy Verified 02/15/19 18:33 shellfish derived Allergy Verified 02/15/19 18:33 Home Medications: Ambulatory Orders Acetaminophen [Tylenol .Regular Strength -] 650 mg PO Q4H PRN tablet 11/01/17 Sennosides/Docusate Sodium [Pericolace -] 1 tablet PO BID tablet 11/01/17 Oxycodon-Acetaminophen 7.5-325 1 PO 12/02/17 Cyclobenzaprine HCl [Flexeril 10 mg] 10 mg PO BID PRN 30 Days #60 tablet NS MDD 2 02/06/18 Ibuprofen [Motrin -] 600 mg PO TID PRN 30 Days #120 tablet NS 02/06/18 COPD: No - Surgical History Abdominal Surgery: Yes (OPEN FALLOPIAN TUBE) Neurologic Surgery: Yes (laaminectomy) Orthopedic Surgery: Yes - Family Disease History Family Disease History: CA: Grandparents (maternal grandparents colon CA, M grandfather prostate ca is 100 years old, paternal grandparents) - Reproductive History Cervical CA: No - Immunization History Td Vaccination: Yes Immunization Up to Date: Yes - Suicide/Smoking/Psychosocial Hx Smoking Status: No Smoking History: Never smoked Have you smoked in the past 12 months: No Number of Cigarettes Smoked Daily: 1 Hx Alcohol Use: No Drug/Substance Use Hx: No Substance Use Type: None Review of Systems - Review of Systems Comments:: 02/15/19 19:45 GENERAL/CONSTITUTIONAL: No fever or chills. No weakness. HEAD, EYES, EARS, NOSE AND THROAT: No change in vision. No ear pain or discharge. No sore throat. CARDIOVASCULAR: +Chest pain, palpitations, and SOB as described. RESPIRATORY: No cough, wheezing, or hemoptysis. GASTROINTESTINAL: No nausea, vomiting, diarrhea or constipation. GENITOURINARY: No dysuria, frequency, or change in urination. MUSCULOSKELETAL: No joint or muscle swelling or pain. No neck or back pain. SKIN: No rash NEUROLOGIC: No headache, vertigo, loss of consciousness, or change in strength/ sensation. ENDOCRINE: No increased thirst. No abnormal weight change HEMATOLOGIC/LYMPHATIC: No anemia, easy bleeding, or history of blood clots. ALLERGIC/IMMUNOLOGIC: No hives or skin allergy. *Physical Exam - Vital Signs Last Vital Signs Temp Pulse Resp BP Pulse Ox 97.7 F 96 H 18 152/93 99 02/15/19 18:30 02/15/19 18:30 02/15/19 18:30 02/15/19 18:30 02/15/19 18:30 - Physical Exam Comments: 02/15/19 19:45 GENERAL: Awake, alert, and fully oriented, in no acute distress HEAD: No signs of trauma, normocephalic, atraumatic EYES: PERRLA, EOMI, sclera anicteric, conjunctiva clear ENT: Auricles normal inspection, hearing grossly normal, nares patent, oropharynx clear without exudates. Moist mucosa NECK: Normal ROM, supple, no lymphadenopathy, JVD, or masses LUNGS: No distress, speaks full sentences, clear to auscultation bilaterally HEART: Regular rate and rhythm, normal S1 and S2, no murmurs, rubs or gallops, peripheral pulses normal and equal bilaterally. ABDOMEN: Soft, nontender, normoactive bowel sounds. No guarding, no rebound. No masses EXTREMITIES: Normal inspection, Normal range of motion, no edema. No clubbing or cyanosis. NEUROLOGICAL: Cranial nerves II through XII grossly intact. Normal speech, normal gait, no focal sensorimotor deficits SKIN: Warm, Dry, normal turgor, no rashes or lesions noted. ED Treatment Course - LABORATORY CBC & Chemistry Diagram: 02/15/19 19:55 02/15/19 19:55 Medical Decision Making - Medical Decision Making 02/16/19 00:46 Ms. Rodriguez is a 43 yo female w/ pmh as described who presents for evaluation of symptoms concerning for ACS vs. PE vs. MSK pain. Patient evaluated with labs as below. Patient d-dimer mildly elevated as below. CTA performed negative. Labs otherwise grossly wnl. EKG and 2 troponins negative. No concern for acute process at this time. Discharging to home for further outpatient f/u. Laboratory Results - last 24 hr 02/15/19 02/15/19 02/15/19 19:55 19:55 19:55 WBC 6.1 RBC 3.85 Hgb 13.1 Hct 38.4 D MCV 99.8 H MCH 34.1 H MCHC 34.2 RDW 13.0 Plt Count 281 D MPV 8.0 Absolute Neuts (auto) 3.4 Neutrophils % 55.7 Lymphocytes % 33.6 D Monocytes % 7.9 Eosinophils % 1.8 Basophils % 1.0 Nucleated RBC % 0 D-Dimer 536 H Sodium 140 Potassium 4.1 Chloride 105 Carbon Dioxide 30 Anion Gap 5 L BUN 9 Creatinine 1.1 Creat Clearance w eGFR 54.47 Random Glucose 93 Calcium 8.5 Total Bilirubin 0.5 AST 12 L ALT 14 Alkaline Phosphatase 90 Creatine Kinase 38 Troponin I < 0.02 Total Protein 7.8 Albumin 3.8 TSH 1.29 Serum , Qual Urine Color Urine Appearance Urine pH Ur Specific [place] Urine Protein Urine Glucose (UA) Urine Ketones Urine Blood Urine Nitrite Urine Bilirubin Urine Urobilinogen Ur Leukocyte Esterase Urine WBC (Auto) Urine RBC (Auto) Urine Casts (Auto) U Epithel Cells (Auto) Urine Bacteria (Auto) Urine HCG, Qual 02/15/19 02/15/19 02/15/19 20:40 20:50 23:45 WBC RBC Hgb Hct MCV MCH MCHC RDW Plt Count MPV Absolute Neuts (auto) Neutrophils % Lymphocytes % Monocytes % Eosinophils % Basophils % Nucleated RBC % D-Dimer Sodium Potassium Chloride Carbon Dioxide Anion Gap BUN Creatinine Creat Clearance w eGFR Random Glucose Calcium Total Bilirubin AST ALT Alkaline Phosphatase Creatine Kinase Troponin I < 0.02 Total Protein Albumin TSH Serum , Qual Negative Urine Color Yellow Urine Appearance Clear Urine pH 5.5 Ur Specific [place] 1.014 Urine Protein Negative Urine Glucose (UA) Negative Urine Ketones Negative Urine Blood Trace Urine Nitrite Negative Urine Bilirubin Negative Urine Urobilinogen 0.2 Ur Leukocyte Esterase Negative Urine WBC (Auto) 8 Urine RBC (Auto) 4.8 Urine Casts (Auto) 1 U Epithel Cells (Auto) 2.8 Urine Bacteria (Auto) 166.8 Urine HCG, Qual Negative *DC/Admit/Observation/Transfer Diagnosis at time of Disposition: Chest pain Qualifiers: Chest pain type: unspecified Qualified Code(s): R07.9 - Chest pain, unspecified - Discharge Dispostion Disposition: HOME - Referrals - Patient Instructions Printed Discharge Instructions: DI for Atypical Chest Pain Additional Instructions: You were evaluated today in the ER for your symptoms. We performed laboratory evaluation as well as EKG and Chest CT with no concerning findings. Please follow-up tomorrow at previously scheduled pain management clinic as discussed. Also follow-up with primary care provider in 2-3 days for further evaluation. Return to ER if any fever, return of pain, difficulty breathing, or other concerning symptoms. - Post Discharge Activity
[2019-02-15] MEDS ORDERED: ASPIRIN 81 MG CHEWABLE TABLETS PO ONE (19:40)
[2019-02-15] MEDS ORDERED: ASPIRIN 81 MG CHEWABLE TABLETS ONE (19:44)
[2019-02-15] MEDS ORDERED: SODIUM CHLORIDE 1,000 ML IV STA (19:50)
[2019-02-15] MEDS ORDERED: METOCLOPRAMIDE HCL INJECTION 10 MG/2 ML VIAL IVPB ONE (19:50)
[2019-02-15] MEDS ORDERED: ONDANSETRON 4 MG/2 ML VIAL IVPB ONE (19:50)
[2019-02-15] MEDS ORDERED: ONDANSETRON 4 MG/2 ML VIAL ONE (19:58)
[2019-02-15] MEDS ORDERED: METOCLOPRAMIDE HCL INJECTION 10 MG/2 ML VIAL ONE (19:58)
[2019-02-15 20:15] LABS: EOS % 1.8 % (0-4.5); HEMATOCRIT 38.4 % (32.4-45.2); HEMOGLOBIN 13.1 GM/dL (10.7-15.3); LYMPH % 33.6 % (8-40); MCH 34.1 pg (25.7-33.7); MCHC 34.2 g/dl (32.0-36.0); MEAN CELL VOLUME 99.8 fl (80-96); MONO % 7.9 % (3.8-10.2); NEUT % 55.7 % (42.8-82.8); PLATELET COUNT 281 K/MM3 (134-434); RBC 3.85 M/mm3 (3.60-5.2); WHITE BLOOD COUNT 6.1 K/mm3 (4.0-10.0)
[2019-02-15 20:40] LABS: ALBUMIN 3.8 g/dl (3.4-5.0); ALK PHOS 90 U/L (45-117); ANION GAP 5 MMOL/L (8-16); BILIRUBIN,TOTAL 0.5 mg/dL (0.2-1); BLOOD UREA NITROGEN 9 mg/dL (7-18); CALCIUM 8.5 mg/dL (8.5-10.1); CHLORIDE 105 mmol/L (98-107); CO2 30 mmol/L (21-32); CREATININE 1.1 mg/dL (0.55-1.3); GLUCOSE,RANDOM 93 mg/dL (74-106); POTASSIUM 4.1 mmol/L (3.5-5.1); SGOT/AST 12 U/L (15-37); SGPT/ALT 14 U/L (13-61); SODIUM 140 mmol/L (136-145); TOT PROT 7.8 g/dl (6.4-8.2)
[2019-02-15 20:50] LABS: EPI CELLS 2.8 /HPF (0-5); HCG,QUALITATIVE URINE Negative; PH,URINE 5.5 (5.0-8.0); URINE APPEARANCE CLEAR; URINE BACTERIA 166.8 /hpf (NEGATIVE); URINE BILIRUBIN NEGATIVE (NEGATIVE); URINE CASTS 1 /hpf (0-8); URINE COLOR YELLOW; URINE GLUCOSE (UA) NEGATIVE (NEGATIVE); URINE KETONE NEGATIVE (NEGATIVE); URINE LEUK ESTERASE NEGATIVE (NEGATIVE); URINE NITRITE NEGATIVE (NEGATIVE); URINE PROTEIN NEGATIVE (NEGATIVE); URINE UROBILINOGEN 0.2 mg/dL (0.2-1.0); URINE WBC 8 /hpf (0-5)
--- NOTE | 2019-02-15 21:05 | PDOC ---
Attending Attestation - Resident Resident Name: Ian Soni - ED Attending Attestation I have performed the following: I have examined & evaluated the patient, The case was reviewed & discussed with the resident, I agree w/resident's findings & plan, Exceptions are as noted - Physicial Exam PE: 02/15/19 21:01 awake alert NAD lungs clear bilaterally heart rrr no mrg abd soft nt nd. ext wwp no edema. no calf tenderness. 2 + dp/ pt pulses bilaterally. nuero alert oriented x 3. - Medical Decision Making 02/15/19 21:02 43 yo F with h/o mult back surgeries. chronic back pain, here with c/o chest pain. pt states has been having intermittently for a while. no n/v does get associated sob, and palpitations. also c/o vague headache. no n/v no diaphoresis. no family h/o cad. no tobacco use. no h/o pe or dvt. no leg swelling no calf tenderness. on exam pt awake alert normal heart and lung exam. no ext swelling. differential: thyroid abnormality (h/o pituitary abnormality), acs, pe infection dysrhtymia, acs. plan ekg labs cxr d dimer. d dimer elevated. will obtain ct angio. <Migdalia Faulkner - Last Filed: 02/15/19 21:01> - HPI HPI: 02/15/19 21:24 The patient is a 43 year old female, with a significant past medical history of pituitary tumor (scans done every 6 months) and chronic back pain (s/p T7-T8 Laminectomies with transpedicle costotransverse decompression of T7-T8 with T7- T8 posterior fusion on 10/29/[address] Horn), who presents to the emergency department with, approximately 3-4 days of chest pressure with associated shortness of breath and palpitations. She denies any worsening or alleviating factors. She denies recent fevers, chills, headache or dizziness. She denies recent nausea, vomit, diarrhea or constipation. She denies recent dysuria, frequency, urgency or hematuria. Allergies: Shellfish - Medical Decision Making 02/15/19 23:01 EXAM: CHEST CTA HISTORY: Rule out PE COMPARISON: None. FINDINGS: There is no evidence of pulmonary embolism The thoracic aorta is normal in course and caliber without dissection The heart is not enlarged. There is no pericardial effusion The tracheobronchial tree is patent Mild bilateral dependent atelectasis No airspace consolidation or infiltrates Trace bilateral pleural effusions Mild thoracic scoliosis with posterior fusion T7/T8 No gross abnormalities in the included portions of the upper abdomen One or more of the following dose reduction techniques were used: automated exposure control, adjustment of the mA and/or kV according to patient size, use of iterative reconstructive technique. Read by: Soto Arteaga MD <Ladi Brewer - Last Filed: 02/15/19 23:02> Attestations - Attestations 02/15/19 21:24 Documentation prepared by Ladi Brewer, acting as medical services assistant for Migdalia Faulkner MD. <Ladi Brewer - Last Filed: 02/15/19 23:02>
[2019-02-15 21:23] LABS: URINE RBC 4.8 /hpf (0-4)
[2019-02-16 00:56] VITALS: BP 147/82; PULSE 82
--- NOTE | 2019-02-16 12:35 | EKG ---
Test Reason : Blood Pressure : / mmHG Vent. Rate : 096 BPM Atrial Rate : 096 BPM P-R Int : 154 ms QRS Dur : 076 ms QT Int : 352 ms P-R-T Axes : 066 079 052 degrees QTc Int : 444 ms NORMAL SINUS RHYTHM POSSIBLE LEFT ATRIAL ENLARGEMENT SEPTAL INFARCT (CITED ON OR BEFORE 19-FEB-2014) ABNORMAL ECG WHEN COMPARED WITH ECG OF 27-OCT-2017 07:54, NO SIGNIFICANT CHANGE WAS FOUND Confirmed by NORMA DOTSON MD ([id number]) on 02/16/2019 12:34:59 PM Referred By: Confirmed By:NORMA DOTSON MD
== END 2019-02-16 00:56 | disposition home or self-care (01) ==
LOC: JER 18:29
PROC: 3E033GC Introduction of Other Therapeutic Substance into Peripheral Vein, Percutaneous Approach (ICD-10-PCS; principal; 2019-02-15)
PROC: 3E033GC Introduction of Other Therapeutic Substance into Peripheral Vein, Percutaneous Approach (ICD-10-PCS; 2019-02-15)
DX: R07.9 Chest pain, unspecified (principal)
CPT/HCPCS: 36415; 71275-TC; 80053; 81003; 82550; 84443; 84484; 84703; 85025; 85379; 87086; 93005; 93010; 96374; 96375; 99282-25; J7030

== ENCOUNTER 2019-03-19 11:17 | Day surgery (SDC) | payer OTHER ==
[2019-03-18 16:22] VITALS: BMI 24.6
[2019-03-19 13:54] VITALS: TEMP 97.5
[2019-03-19 14:18] VITALS: PULSE 76
[2019-03-19 15:01] VITALS: BP 131/84
--- NOTE | 2019-03-23 14:31 | PATH ---
Surgical Pathology Report Patient Name: REGLA ROSARIO [facility]. Rec. #: [id number] /Age/Gender: 1975 (Age: 43) / F Account: [id number] Location: U-ENDOSCOPY Taken: 03/19/2019 Received: 03/20/2019 Reported: 03/23/2019 Physicians: Vasile Schultz D.O. Specimen(s) Received A: DUODENAL BULB B: 2ND PORTION DUODENAL POLYP C: 2ND PORTION DUODENUM D: BODY AND ANGULARIS Clinical History Dyspepsia, abdominal pain Postoperative diagnosis: Duodenal polyp, duodenitis Final Diagnosis A. DUODENAL BULB, BIOPSY POLYPOID DUODENAL MUCOSA WITH MODERATE CHRONIC FOCAL ACUTE DUODENITIS AND GASTRIC HETEROTOPIA. B. DUODENAL POLYP, SECOND PORTION, BIOPSY: POLYPOID DUODENAL MUCOSA WITH MILD ACUTE AND CHRONIC DUODENITIS AND MILD MARYANN'S GLAND HYPERPLASIA. C. DUODENUM, SECOND PORTION, BIOPSY: DUODENAL MUCOSA WITH MILD ACUTE AND CHRONIC DUODENITIS. D. STOMACH, ANGULARIS AND BODY, BIOPSY: GASTRIC MUCOSA WITH MILD CHRONIC GASTRITIS. IMMUNOHISTOCHEMICAL STAIN FOR H. PYLORI IS NEGATIVE. Electronically Signed Cece Kessler M.D. Gross Description A. Received in formalin, labeled "duodenal bulb biopsy" are 3 snyder, irregular portions of soft tissue ranging from 0.1-0.3 cm. in greatest dimension. The specimens are submitted in toto in one cassette. B. Received in formalin, labeled "second portion of duodenal polyp biopsy" are 3 snyder, irregular portions of soft tissue ranging from 0.3-0.9 cm. in greatest dimension. The specimens are submitted in toto in one cassette. C. Received in formalin, labeled "second portion of duodenum biopsy" are 3 snyder, irregular portions of soft tissue ranging from 0.2-0.3 cm. in greatest dimension. The specimens are submitted in toto in one cassette. D. Received in formalin, labeled "angularis and body biopsy" are 3 snyder, irregular portions of soft tissue ranging from 0.1-0.3 cm. in greatest dimension. The specimens are submitted in toto in one cassette. DL/03/20/2019 saudi03/20/2019
== END 2019-03-19 15:07 | disposition home or self-care (01) ==
LOC: JASU-ENDO 11:17
PROVIDERS: ATTEND Internal Medicine Gastroenterology
PROC: 0DB68ZX Excision of Stomach, Via Natural or Artificial Opening Endoscopic, Diagnostic (ICD-10-PCS; 2019-03-19)
PROC: 0DB98ZX Excision of Duodenum, Via Natural or Artificial Opening Endoscopic, Diagnostic (ICD-10-PCS; principal; 2019-03-19 12:00)
DX: K31.7 Polyp of stomach and duodenum (principal); K29.80 Duodenitis without bleeding; K29.50 Unspecified chronic gastritis without bleeding
CPT/HCPCS: 84703; 88305-TC; 88342-TC

== ENCOUNTER 2019-07-31 16:42 | Emergency (ER) | payer OTHER ==
--- NOTE | 2019-07-31 17:05 | PDOC ---
Rapid Medical Evaluation Chief Complaint: Back Pain Time Seen by Provider: 07/31/19 17:00 Medical Evaluation: Allergies Allergy/AdvReac Type Severity Reaction Status Date / Time No Known Drug Allergies Allergy Verified 07/31/19 17:00 shellfish derived Allergy Verified 07/31/19 17:00 07/31/19 17:04 Patient c/o: back pain, unable to bend over or twist to the left secondary to pain Patient on brief exam: vss, low back tenderness at lumbar region Patient ordered for: flexeril and toradol patient to proceed to the ED Discharge Disposition - Diagnosis Back pain - Referrals Referrals: Kiko Benitez MD [Primary Care Provider] - - Patient Instructions - Post Discharge Activity
[2019-07-31] MEDS ORDERED: KETOROLAC TROMETHAMINE 60 MG/2 ML VIAL IM ONE (17:06)
[2019-07-31] MEDS ORDERED: CYCLOBENZAPRINE HCL 10 MG TABLET (FP) PO ONE (17:06)
[2019-07-31 17:12] VITALS: BP 153/84; PULSE 86; TEMP 98.4; BMI 24.4
[2019-07-31] MEDS ORDERED: KETOROLAC TROMETHAMINE 60 MG/2 ML VIAL ONE (17:46)
[2019-07-31] MEDS ORDERED: CYCLOBENZAPRINE HCL 10 MG TABLET (FP) ONE (17:47)
--- NOTE | 2019-07-31 18:12 | PDOC ---
History of Present Illness - General Chief Complaint: Back Pain Stated Complaint: BACK PAIN Time Seen by Provider: 07/31/19 17:00 History Source: Patient Exam Limitations: No Limitations - History of Present Illness Initial Comments: 07/31/19 17:53 CHIEF COMPLAINT: Lower back pain HISTORY OF PRESENT ILLNESS: 43-year-old woman past medical history of spinal fusion presents emergency department for evaluation of mid and lower back pain which has worsened over the past week. Patient reports the pain radiates to her left lower extremity and circumferentially around the ribs ending in the anterior chest. She denies any neurosensory deficits, incontinence of bladder or bowel, saddle anesthesia, urinary retention, foot drop, history of IV drug use or history of cancer. Patient has appointment with pain management on 08/06. REVIEW OF SYSTEMS: GENERAL: Afebrile, denies any weakness RESPIRATORY: No cough, wheezing, or hemoptysis. CARDIAC: No chest pain or shortness of breath MUSCULOSKELETAL: Pain to generalized lower back. No point tenderness. SKIN : No erythema, no bruising, no deformity. GI/: Denies any abdominal pain, no urinary difficulty, incontinence or urinary retention. RECTAL: Denies any difficulty this A.m. NEUROLOGICAL: Denies any numbness or tingling. No neurosensory deficits. PHYSICAL EXAM: GENERAL: The patient is awake, alert, and fully oriented, in no acute distress. RESPIRATORY: Lungs clear bilaterally, no rhonchi wheezes or crackles CARDIAC: S1-S2 audible, no murmur rub or gallop MUSCULOSKELETAL: Pain to generalized lower back, nonradiating, no tingling or sensory deficit. Less than 2 second cap refill, +2 pedal pulses. No spinal point tenderness. Normal reflexive and no deficits to sensation or strength. GI/: Abdomen soft, nontender, nondistended. No rebound tenderness. No masses palpable. RECTAL: Deferred patient with no neurological findings SKIN: Warm, Dry, normal turgor, no erythema, no edema no bruising. Past History - Past Medical History Allergies/Adverse Reactions: Allergies Allergy/AdvReac Type Severity Reaction Status Date / Time No Known Drug Allergies Allergy Verified 07/31/19 17:00 shellfish derived Allergy Verified 07/31/19 17:00 Home Medications: Ambulatory Orders Cyclobenzaprine HCl [Flexeril 10 mg] 10 mg PO BID PRN 30 Days #60 tablet NS MDD 2 02/06/18 Cholecalciferol (Vitamin D3) [Vitamin D3] 1,000 unit PO DAILY 03/19/19 Duloxetine HCl 30 mg PO DAILY 03/19/19 Meclizine HCl [Antivert -] 25 mg PO DAILY PRN 03/19/19 Meloxicam [Mobic] 15 mg PO DAILY PRN 03/19/19 Acetaminophen [Tylenol] 325 mg PO DAILY 05/11/19 traMADol HCL [Ultram -] 50 mg PO Q8H PRN #18 tablet MDD 3 07/31/19 COPD: No HTN: Yes - Surgical History Abdominal Surgery: Yes Neurologic Surgery: Yes (laminectomy) Orthopedic Surgery: Yes (LEFT KNEE ARTHROSCOPY, SPINAL FUSION W/LAMINECTOMY) - Family Disease History Family Disease History: CA: Grandparents (maternal grandparents colon CA, M grandfather prostate ca is 100 years old, paternal grandparents) - Reproductive History Cervical CA: No - Immunization History Td Vaccination: Yes Immunization Up to Date: Yes - Suicide/Smoking/Psychosocial Hx Smoking Status: No Smoking History: Never smoked Have you smoked in the past 12 months: No Number of Cigarettes Smoked Daily: 1 Hx Alcohol Use: No Drug/Substance Use Hx: No Substance Use Type: None Hx Substance Use Treatment: No *Physical Exam - Vital Signs Last Vital Signs Temp Pulse Resp BP Pulse Ox 98.4 F 86 18 153/84 99 07/31/19 17:02 07/31/19 17:02 07/31/19 17:02 07/31/19 17:02 07/31/19 17:02 Medical Decision Making - Medical Decision Making 07/31/19 18:12 A/P: 43-year-old woman with acute on chronic back pain Given new onset of lower back pain I will get a test and urinalysis Pain medication per RME Reassess 07/31/19 18:44 UA not suggestive of infection. 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 Portions of this note have been documented using voice recognition software. As a result, errors may occur in the block feeder process. Effort has been made to correct all grammatical and block feeder error, but some may have been missed. *DC/Admit/Observation/Transfer Diagnosis at time of Disposition: Back pain Qualifiers: Back pain location: thoracic back pain Chronicity: acute Back pain laterality: midline Qualified Code(s): M54.6 - Pain in thoracic spine - Discharge Dispostion Disposition: HOME Condition at time of disposition: Fair Decision to Admit order: No - Prescriptions Prescriptions: traMADol HCL [Ultram -] 50 mg PO Q8H PRN #18 tablet MDD 3 PRN Reason: Back Pain - Referrals Referrals: Kiko Benitez MD [Primary Care Provider] - - Patient Instructions Additional Instructions: Rest. Take Tylenol as needed for pain. Follow manufacturers instructions for appropriate dosage. Take tramadol as needed if Tylenol is not effective. Lidocaine patches can be purchased without a prescription. These can be helpful with this type of pain. Warm moist heat applied to your back may help alleviate pain. Return to emergency department for numbness or tingling to the rectum or genitals, worsening pain, or any other concerns. Thank you very much for choosing us to provide your emergent healthcare needs. - Post Discharge Activity
[2019-07-31 18:20] LABS: EPI CELLS 5.6 /HPF (0-5/HPF); HYALINE CASTS 4 /lpf (0-8); URINE APPEARANCE CLEAR; URINE BACTERIA 73.8 /hpf (NEGATIVE); URINE BILIRUBIN NEGATIVE (NEGATIVE); URINE COLOR YELLOW; URINE GLUCOSE (UA) NEGATIVE (NEGATIVE); URINE KETONE NEGATIVE (NEGATIVE); URINE LEUK ESTERASE NEGATIVE (NEGATIVE); URINE NITRITE NEGATIVE (NEGATIVE); URINE PROTEIN NEGATIVE (NEGATIVE); URINE RBC 4 /hpf (0-4); URINE UROBILINOGEN 0.2 mg/dL (0.2-1.0); URINE WBC 2 /hpf (0-5)
== END 2019-07-31 19:03 | disposition home or self-care (01) ==
LOC: JERFT 16:42
PROC: 3E0233Z Introduction of Anti-inflammatory into Muscle, Percutaneous Approach (ICD-10-PCS; principal; 2019-07-31)
DX: M54.9 Dorsalgia, unspecified (principal)
CPT/HCPCS: 81003; 84703; 96372; 99282-25

== ENCOUNTER 2020-09-01 05:18 | Day surgery (SDC) | payer OTHER ==
[2020-08-25 11:03] VITALS: BMI 25.0
--- OUTSIDE RECORDS SUMMARY | 2020-09-01 05:29 | XMS ---
:1975 Author Organization [facility] Care Team Providers Name Role Phone Chumaceiro, Kiko Unavailable Unavailable Chumaceiro, Kiko Unavailable Unavailable Chumaceiro, Kiko Unavailable Unavailable Chumaceiro, Kiko Unavailable Unavailable Chumaceiro, Kiko Unavailable Unavailable Chumaceiro, Kiko Unavailable Unavailable Chumaceiro, Kiko Unavailable Unavailable Chumaceiro, Kiko Unavailable Unavailable OVI BLUE, HARJIT Unavailable OVI BLUE, HARJIT Unavailable OVI BLUE, HARJIT Unavailable LONG CNM, AUTUMN Unavailable LONG CNM, AUTUMN Unavailable LONG CNM, AUTUMN Unavailable LONG CNM, AUTUMN Unavailable DiGiorno, Christopher Unavailable DiGiorno, Christopher Unavailable DiGiorno, Christopher Unavailable RICHELLE HOLLIDAY MD Unavailable Kevin Smallwood Unavailable Unavailable Kevin Smallwood Unavailable Unavailable Kevin Smallwood Unavailable Unavailable Kevin Smallwood Unavailable Unavailable Re-disclosure Warning The records that you are about to access may contain information from federally- assisted alcohol or drug abuse programs. If such information is present, then the following federally mandated warning applies: This information has been disclosed to you from records protected by federal confidentiality rules (42 CFR part 2). The federal rules prohibit you from making any further disclosure of this information unless further disclosure is expressly permitted by the written consent of the person to whom it pertains or as otherwise permitted by 42 CFR part 2. A general authorization for the release of medical or other information is NOT sufficient for this purpose. The Federal rules restrict any use of the information to criminally investigate or prosecute any alcohol or drug abuse patient.The records that you are about to access may contain highly sensitive health information, the redisclosure of which is protected by Article 27-F of the [facility] Public Health law. If you continue you may haveaccess to information: Regarding HIV / AIDS; Provided by facilities licensed or operated by the [facility] Office of Mental Health; or Provided by the [facility] Office for People With Developmental Disabilities. If such information is present, then the following [facility] mandated warning applies: This information has been disclosed to you from confidential records which are protected by state law. State law prohibits you from making any further disclosure of this information without the specific written consent of the person to whom it pertains, or as otherwise permitted by law. Any unauthorized further disclosure in violation of state law may result in a fine or fci sentence or both. A general authorization for the release of medical or other information is NOT sufficient authorization for further disclosure. Encounters Encounter Providers Location Date Indications Data Source(s ) Attender: Vasile 08/10/2020 MED GEN ([facility] 12:00:00 AM Medical, ) EDT Office Outpatient<td Attender: Kathi 06/23/2020 [place] ID="encounterTypeDescriptionID0">OFFICE [facility] 02:00:0 0 PM ([place] VISIT</td><td>[facility] EDT - [place] BLUE</td><td[facility]</td><td>06/23/2020</td><td></td> 11:59:0 0 PM Center) EDT Attender: 05/11/2020 MEDGEN ([facility] 12:00:00 AM [facility], ) Office Attender: Kiko 05/11/2020 12:00:00 AM EDT MEDGEN ([facility], ) Office Attender: Kiko 05/11/2020 12:00:00 AM EDT MEDGEN ([facility], ) Office Outpatient<td Attender: Kathi 04/28/2020 CASEY ID="encounterTypeDescriptionID1">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:00 P M ([place] OV</td><[facility] </td><td>[facility] 04/28/2020 Health Center</td><td>04/28/2020</td><td></td> 03:32:1 2 PM Center) EDT Outpatient<td Attender: Kathi 04/26/2020 CASEY ID="encounterTypeDescriptionID2">Regular [facility] 02:30: 00 PM ([place] Sonogram</td><td>RICHELLE HOLLIDAY MD [facility] EDT - [facility] </td><td>[facility] 04/26/2020 Health Center</td><td>04/26/2020</td><td></td> 04:14:1 0 PM Center) EDT Outpatient<td Attender: Kathi 04/26/2020 CASEY ID="encounterTypeDescriptionID3">Regular [facility] 02:00: 00 PM ([place] Sonogram</td><td>RICHELLE HOLLIDAY MD [facility] EDT - [facility] </td><td>[facility] 04/26/2020 Health Center</td><td>04/26/2020</td><td></td> 04:14:0 5 PM Center) EDT Outpatient<td Attender: Kathi 04/20/2020 Dennis CASEY ID="encounterTypeDescriptionID4">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 Note Free V Text]</content></td> a g i n i t i s V a g i n i t i s V a g i n i t i s A s s e s s m e n t [ u s e F o r S . o . a . p . N o t e F r e e T e x t ] A s s e s s m e n t [ u s e F o r S . o . a . p . N o t e F r e e T e x t ] A s s e s s m e n t [ u s e F o r S . o . a . p . N o t e F r e e T e x t ] A s s e s s m e n t [ u s e F o r S . o . a . p . N o t e F r e e T e x t ] Vaginitis Vaginitis Vaginitis Vaginitis Assessment [use For S.o.a.p. Note Free T ext] Assessment [use For S.o.a.p. Note Free T ext] Assessment [use For S.o.a.p. Note Free T ext] Assessment [use For S.o.a.p. 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: Y 09/09/2019 Dennis CASEY ANNUAL</td><td>AUTUMN PANIAGUA CNM</td><td>[facility] RONEY TUCKER o 01:00:00 PM a ([facility]</td><td>09/09/2019</td><td><content LONG CNM n EDT - g Neighborhood ID="encounterDiagnosisID6-0">Vaginitis</content>, <content k 09/09/2019 i Health ID="encounterDiagnosisID6-1">Uterine Neoplasm, Benign - e 01:41:43 PM n [place]) Leiomyoma</content>, <content r EDT i ID="encounterDiagnosisID6-2">Ovarian Cyst</content>, s t <content ID="encounterDiagnosisID6-3">Routine Gynecological C i Exam with Cervical Pap Smear</content></td> o s m V m a u g n i i n t i y t H i e s a V l a t g h i C n e i n t t i e s r V a g i n i t i s V a g i n i t i s V a g i n i t i s R o u t i n e G y n e c o l o g i c a l E x a m w i t h C e r v i c a l P a p S m e a r O v a r i a n C y s t U t e r i n e N e o p l a s m , B e n i g n - L e i o m y o m a R o u t i n e G y n e c o l o g i c a l E x a m w i t h C e r v i c a l P a p S m e a r O v a r i a n C y s t U t e r i n e N e o p l a s m , B e n i g n - L e i o m y o m a R o u t i n e G y n e c o l o g i c a l E x a m w i t h C e r v i c a l P a p S m e a r O v a r i a n C y s t U t e r i n e N e o p l a s m , B e n i g n - L e i o m y o m a R o u t i n e G y n e c o l o g i c a l E x a m w i t h C e r v i c a l P a p S m e a r O v a r i a n C y s t U t e r i n e N e o p l a s m , B e n i g n - L e i o m y o m a R o u t i n e G y n e c o l o g i c a l E x a m w i t h C e r v i c a l P a p S m e a r O v a r i a n C y s t U t e r i n e N e o p l a s m , B e n i g n - L e i o m y o m a R o u t i n e G y n e c o l o g i c a l E x a m w i t h C e r v i c a l P a p S m e a r O v a r i a n C y s t U t e r i n e N e o p l a s m , B e n i g n - L e i o m y o m a Vaginitis Vaginitis Vaginitis Vaginitis Vaginitis Vaginitis Routine Gynecological Exam with Cervical Pap Smear Ovarian Cyst Uterine Neoplasm, Benign - Leiomyoma Routine Gynecological Exam with Cervical Pap Smear Ovarian Cyst Uterine Neoplasm, Benign - Leiomyoma Routine Gynecological Exam with Cervical Pap Smear Ovarian Cyst Uterine Neoplasm, Benign - Leiomyoma Routine Gynecological Exam with Cervical Pap Smear Ovarian Cyst Uterine Neoplasm, Benign - Leiomyoma Routine Gynecological Exam with Cervical Pap Smear Ovarian Cyst Uterine Neoplasm, Benign - Leiomyoma Routine Gynecological Exam with Cervical Pap Smear Ovarian Cyst Uterine Neoplasm, Benign - Leiomyoma Outpatient<td Attender: Kathi 2019 [place] ID="encounterTypeDescriptionID7">*[facility] 10:47:00 A M ([place] Show*</td><td>HARJIT DIOR MD Health EDT - [place] BLUE</td><td[facility]</td><td>2019</td><td></td> 11:59:0 0 PM Center) EDT Outpatient<td Attender: Kathi 2019 [place] ID="encounterTypeDescriptionID8">[Nader LOMBARDI [facility] 09:56: 00 AM ([place] t Encounter]</td><td>HARJIT DIOR MD Health EDT - [place] BLUE</td><td>[facility] 2019 Health Center</td><td>2019</td><td></td> 11:59:0 0 PM Center) EDT Medications Medication Brand Start Product Dose Route Administrative Pharmacy atus Indications Reaction Description Data Name Date Form Instructions Instructions Source(s) linaclotide LINZES 08/10/ CAPSULE 60 complet JOHN ZESS MEDGEN (St 0.145 MG S:1307 2019 ed [facility] Oral 415 12:00: Medical, Capsule 00 AM PC) [Linzess] EDT LINZESS:130 [id number] SUPREP 08/10/ LIQUID 1 complet SUPREP BEATRIZ L MEDGEN (St BOWEL PREP 2020 ed PREP KIT [facility] KIT:[id number] 12:00: Medica l, 00 AM PC) EDT Flagyl Flagyl 04/20/ UNIT [address] 500MG Oral 500MG 2019 ([place] Tablet Oral 12:00: [place] Tablet 00 AM [place] EDT od Health Center) Metronidazo metroN 09/11/ UNIT 1 complet metroN IDAZOL CASEY le 500 MG IDAZOL 2019 ed E ([place] Oral Tablet E 12:00: [place] metroNIDAZO 500MG 00 AM Neighb orho LE 500MG Oral EDT od Health Oral Tablet Tablet Center ) Fluconazole Flucon 09/09/ UNIT complet Flucon azole CASEY 150 MG Oral azole 2019 ed ([place] Tablet 150MG 12:00: [place] Fluconazole Oral 00 AM Neighbo rho 150MG Oral Tablet EDT od [facility] Tablet Center) Albuterol ALBUTE 08/20/ AEROSOL 1 complet ALBUT CLAIR [facility] (St 0.09 ROL 2019 ed SULFATE HFA [facility] MG/ACTUAT SULFAT 12:00: Medica l, Metered E 00 AM PC) Dose HFA:13 EDT Inhaler [id number] ALBUTEROL SULFATE HFA:[id number] Albuterol ALBUTE 08/20/ AEROSOL 1 complet ALBUT CLAIR MED[facility] (St 0.09 ROL 2019 ed SULFATE HFA [facility] MG/ACTUAT SULFAT 12:00: Medica l, Metered E 00 AM PC) Dose HFA:13 EDT Inhaler 98429 ALBUTEROL SULFATE [id number]:[id number] Insurance Providers Payer name Policy type / Policy ID Covered Covered democrat's Policy Plan Coverage type democrat ID relationship to Pérez Information pérez MEDICAID [id number] SP [id number] [facility] MEDICARE [id number] SP [id number] [facility] ESSENTIAL [id number] PLAN - [facility] [place] [id number] 1 [id number] PART B [facility] MEDICAID OF [id number] 1 [id number] [place] AETNA [id number] 1 [id number] MEDICARE EMPIRE PLAN [id number] 1 [id number] ([facility]) LIONEL CARE [id number] 1 [id number] [place] Aetna Individual 0 Self 0 Policy Aetna Individual 0 Self 0 Policy Aetna Individual 0 Self 0 Policy Medicare Part Individual 0 Self 0 A of Policy [place] Care Individual 0 Self 0 [place] Policy Lionel Care Individual 0 Self 0 [place] Policy LIONEL [id number] SP [id number] HEALTH NON CAP LIONEL [id number] SP [id number] HEALTH NON CAP [place]ION[place] [id number] SP [id number] HEALTH NON CAP [place] Individual 0 Self 0 [place] Policy [place] Individual 0 Self 0 [place] Policy Lion[place] Care Individual 0 Self 0 [place] Policy [place]to Vision [id number] S [id number] D Dental [id number] S [id number] Dentaquest [facility] Medicaid [id number] S [id number] Regular Clinic Visit [place] Plan [id number] S [id number] [facility] Lionel Care [id number] S [id number] HMO Essential Plan 1 Lionel Care [id number] S [id number] [place] Care Individual 0 Self 0 [place] Policy Problems, Conditions, and Diagnoses Code Display Name Description Problem Type Effective Data Sour ce(s) Dates 218.9 Leiomyoma of Leiomyoma of Problem 09/09/2019 [place] ( [facility] uterus, uterus, 12:00:00 AM [place] unspecified unspecified EDT [facility]) 218.9 Leiomyoma of Leiomyoma of Problem 09/09/2019 [place] ( [facility] uterus, uterus, 12:00:00 AM [place] unspecified unspecified EDT [facility]) 218.9 Leiomyoma of Leiomyoma of Problem 09/09/2019 [place] ( [facility] uterus, uterus, 12:00:00 AM [place] unspecified unspecified EDT [facility]) 218.9 Leiomyoma of Leiomyoma of Problem 09/09/2019 [place] ( [facility] uterus, uterus, 12:00:00 AM [place] unspecified unspecified EDT [facility]) 218.9 Leiomyoma of Leiomyoma of Problem 09/09/2019 [place] ( [facility] uterus, uterus, 12:00:00 AM [place] unspecified unspecified EDT [facility]) 218.9 Leiomyoma of Leiomyoma of Problem 09/09/2019 [place] ( [facility] uterus, uterus, 12:00:00 AM [place] unspecified unspecified EDT [facility]) 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 08/20/2019 MEDG EN ([address] asthma, ASTHMA, 12:00:00 AM [facility] Medica l, uncomplicated UNCOMPLICATED EDT PC) 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 08/20/2019 MEDG EN (St asthma, ASTHMA, 12:00:00 AM [facility] Medica l, uncomplicated UNCOMPLICATED EDT PC) Surgeries/Procedures Procedure Description Date Indications Data Source(s) OFFICE OUTPATIENT 08/10/2020 [facility] ([facility] VISIT 15 MINUTES 12:00:00 AM Medical, PC ) EDT COLLECTION VENOUS 08/10/2020 MED[facility] ([facility] BLOOD VENIPUNCTURE 12:00:00 AM Medical, PC) EDT Result: abnormal Result: abnormal 06/23/2020 [place]AMON[place]WA Y ([facility] 12:00:00 AM [facility]) LMP: 05/31/2020 LMP: 05/31/2020 06/23/2020 [place] ([place] [facility]unt 12:00:00 AM [facility]) 2 2 06/23/2020 [place] ([place] 12:00:00 AM [facility]) Documentation of 05/11/2020 MEDGEN ([facility] current medications 12:00:00 AM Medical, PC) (procedure) EDT COLLECTION VENOUS 05/11/2020 MEDGEN ([facility] BLOOD VENIPUNCTURE 12:00:00 AM Medical, PC) EDT Documentation of 05/11/2020 MEDGEN ([facility] current medications 12:00:00 AM Medical, PC) (procedure) EDT OFFICE OUTPATIENT 05/11/2020 MEDGEN ([facility] VISIT 25 MINUTES 12:00:00 AM Medical, PC ) EDT COLLECTION VENOUS 05/11/2020 MEDGEN ([facility] BLOOD VENIPUNCTURE 12:00:00 AM Medical, PC) EDT Result: normal Result: normal 04/28/2020 [place] ([place] ount 12:00:00 AM [facility]) Para 0 Para 0 04/28/2020 [place] ([place] 12:00:00 AM [facility]) Federally qualified Aetna Medicare Wrap 04/28/2020 G KAL ([facility] ([facility]) Code 12:00:[address] [facility] visit, established [facility] Health Ce nter) patient; a medically-necessary, btzk-ki-ggnd encounter (one-on-one) between an established patient and a [facility] practitioner during which time one or more [facility] services are rendered and includes a typical bundle of medicare-covered services that would be furnished production supervisor trainee to a patient receiving a [facility] visit LMP: 04/06/2020 LMP: 04/06/2020 04/28/2020 [place] ([place]unt 12:00:00 AM [facility]) 2 2 04/28/2020 [place] ([place] 12:00:00 AM [facility]) US PELVIC PELVIC, NON 04/26/2020 [place] ([facility] NONOBSTETRIC OBSTETRICAL 12:00:[address] [facility] REAL-TIME IMAGE ULTRALSOUND [facility] Cente r) COMPLETE Not using Not using 04/20/2020 [place] ([facility] contraception contraception 12:00:00 AM [facility]) History of vaginitis History of vaginitis 04/20/2020 CASEY ([facility] 12:00:00 AM [facility]) History of urinary History of urinary 04/20/2020 GRE ENWAY ([facility] tract infection tract infection 12:00:00 AM [place] [facility]) History of benign History of benign 04/20/[address] ([facility] essential essential 12:00:[address] [facility] hypertension hypertension [facility]) Federally qualified Aetna Medicare Wrap 04/20/2020 G REENWAY ([facility] ([facility]) Code 12:00:[address] [facility] visit, established [facility] Ce nter) patient; a medically-necessary, rklq-wy-bsjd encounter (one-on-one) between an established patient and a [facility] practitioner during which time one or more [facility] services are rendered and includes a typical bundle of medicare-covered services that would be furnished production supervisor trainee to a patient receiving a [facility] visit Para 0 Para 0 04/20/2020 [place] ([facility] 12:00:00 AM [facility]) LMP: 04/06/2020 LMP: 04/06/2020 04/20/2020 [place] (M [facility]unt 12:00:00 AM [facility]) 2 2 04/20/2020 [place] ([facility] 12:00:00 AM [facility]) Documentation of 11/25/2019 [facility] ([facility] current medications 12:00:00 AM Medical, PC) (procedure) EST Documentation of 11/25/2019 [facility] ([facility] current medications 12:00:00 AM Medical, PC) (procedure) EST Documentation of 11/25/2019 [facility] ([facility] current medications 12:00:00 AM Medical, PC) (procedure) EST Documentation of 11/25/2019 MEDGEN ([facility] current medications 12:00:00 AM Medical, PC) (procedure) EST OFFICE OUTPATIENT 11/25/2019 MEDGEN ([facility] VISIT 15 MINUTES 12:00:00 AM Medical, PC ) EST Documentation of 11/25/2019 MEDGEN ([facility] current medications 12:00:00 AM Medical, PC) (procedure) EST Documentation of 11/25/2019 [facility] ([facility] current medications 12:00:00 AM Medical, PC) (procedure) EST Documentation of 11/25/2019 [facility]GEN ([facility] current medications 12:00:00 AM Medical, PC) (procedure) EST Documentation of 11/25/2019 MEDGEN ([facility] current medications 12:00:00 AM Medical, PC) (procedure) EST OFFICE OUTPATIENT 11/25/2019 MEDGEN ([facility] VISIT 15 MINUTES 12:00:00 AM Medical, PC ) EST Result: normal Result: normal 09/09/2019 [place] ([place] [facility] BI-RADS 2: benign BI-RADS 2: benign 12:00:00 AM [facility] [place] ~fibroglandular, ~fibroglandular, [facility]) multiple cysts, multiple cysts, stable stable Last pap smear date Last pap smear date 09/09/2019 Valentino BOWDEN ([facility] 201705/05/18201705/05/18 12:00:00 AM [facility]) Last mammogram date: Last mammogram date: 09/09/2019 [place] ([facility] 04/20/2019 04/20/2019 12:00:00 AM [facility]) HEPATITIS B SURFACE HEPATITIS B SURFACE 09/09/2019 KAL ([facility] AG AG 12:00:00 AM [facility]) HEPATITIS C ANTIBODY HEPATITIS C ANTIBODY 09/09/2019 [place] ([facility] 12:00:00 AM [facility]) HIV 1/2 ANTIGEN & HIV 1/2 ANTIGEN & 09/09/2019 [facility] ([facility] ANTIBODIES, 4TH ANTIBODIES, 4TH 12:00:00 AM [facility] GENERATION W/REFLEXES GENERATION W/REFLEXES [facility]) VDRL (RPR) VDRL (RPR) 09/09/2019 [place] ([facility] 12:00:00 AM [facility]) Result: normal NILM, Result: normal NILM, 09/09/2019 [place] ([facility] HPV neg HPV neg 12:00:00 AM [facility]) Para 0 Para 0 09/09/2019 [place] ([facility] 12:00:00 AM [facility]) Not using Not using 09/09/2019 CASEY ([facility] contraception contraception 12:00:00 AM [facility]) LMP: 08/27/2019 LMP: 08/27/2019 09/09/2019 [place] ([facility] 12:00:00 AM [facility]) 0 0 09/09/2019 [place] ([facility] 12:00:00 AM [facility]) HIV 1/2 ANTIGEN & HIV 1/2 ANTIGEN & 09/09/[address] ([facility] ANTIBODIES, 4TH ANTIBODIES, 4TH 12:00:00 AM [facility] ighborhood GENERATION W/REFLEXES GENERATION W/REFLEXES [facility]) HEPATITIS C ANTIBODY HEPATITIS C ANTIBODY 09/09/2019 CASEY ([facility] 12:00:00 AM [facility]) HEPATITIS B SURFACE HEPATITIS B SURFACE 09/09/2019 G REENWAY ([facility] AG AG 12:00:00 AM [facility]) VDRL (RPR) VDRL (RPR) 09/09/2019 [place] ([facility] 12:00:00 AM [facility]) Documentation of 08/20/2019 [facility] ([facility] current medications 12:00:00 AM Medical, PC) (procedure) EDT Documentation of 08/20/2019 [facility]GEN ([facility] current medications 12:00:00 AM Medical, PC) (procedure) EDT Documentation of 08/20/2019 [facility] ([facility] current medications 12:00:00 AM Medical, PC) (procedure) EDT Documentation of 08/20/2019 [facility]GEN ([facility] current medications 12:00:00 AM Medical, PC) (procedure) EDT Documentation of 07/29/2019 [facility] ([facility] current medications 12:00:00 AM Medical, PC) (procedure) EDT Documentation of 07/29/2019 [facility] ([facility] current medications 12:00:00 AM Medical, PC) (procedure) EDT Documentation of 07/29/2019 [facility] ([facility] current medications 12:00:00 AM Medical, PC) (procedure) EDT OFFICE OUTPATIENT 07/29/2019 [facility] ([facility] VISIT 15 MINUTES 12:00:00 AM Medical, PC ) EDT Documentation of 07/29/2019 [facility] ([facility] current medications 12:00:00 AM Medical, PC) (procedure) EDT Documentation of 07/29/2019 [facility] ([facility] current medications 12:00:00 AM Medical, PC) (procedure) EDT Documentation of 07/29/2019 [facility] ([facility] current medications 12:00:00 AM Medical, PC) (procedure) EDT OFFICE OUTPATIENT 07/29/2019 [facility] ([facility] VISIT 15 MINUTES 12:00:00 AM Medical, PC ) EDT Results ID Date Data Source [id number] 08/27/2020 10:15:00 AM EDT [facility] Name Value Range Interpretation Description Data Sup porting Code Source(s) Document(s ) SARS [facility] coronavirus 2 RNA This lab was ordered by [facility] and reported by [facility]. ID Date Data Source [id number] 06/27/2020 12:00:00 PM EDT [facility] Name Value Range Interpretation Code Description Data Tena rce(s) Supporting Document(s ) [facility] SARS-CoV-2 TMA PCR This lab was ordered by KIKE tejeda reported by [facility]. ID Date Data Source [id number] 05/11/2020 12:00:00 AM EDT [facility] ([facility] Name Value Range Interpretation Description Data Sup porting Code Source(s) Document(s ) Triglyceride 54 mg/dL Normal (applies MED[facility] (St [Mass/volume] in to non-numeric [facility] Serum or Plasma results) Medical, PC) Cholesterol 153 Normal (applies MEDGEN (St [Mass/volume] in mg/dL to non-numeric [facility] Serum or Plasma results) Medical, PC) HDL Cholesterol 60 mg/dL Normal (applies MEDGEN ( St to non-numeric [facility] results) Medical, PC) VLDL Cholesterol 11 mg/dL Normal (applies MEDGEN (St Rah to non-numeric [facility] results) Medical, PC) LDL Cholesterol 82 mg/dL Normal (applies MEDGEN ( St Calc to non-numeric [facility] results) Medical, PC) ID Date Data Source [id number] 05/11/2020 12:00:00 AM EDT [facility] ([facility] Name Value Range Interpretation Description Data Sup porting Code Source(s) Document(s ) Specific gravity 1.010 Normal (applies MEDGEN (St of Pericardial to non-numeric [facility] fluid by results) Medical, Refractometry PC) Urine-Color Yellow Normal (applies [facility] (St to non-numeric [facility] results) [facility], PC) pH of Lower 6.5 Normal (applies MEDGEN (St respiratory to non-numeric [facility] specimen results) [facility], [facility]) Appearance of Clear Normal (applies MEDGEN (St Abdomen to non-numeric [facility] results) Medical, PC) WBC Esterase Negative Normal (applies [facility] (St to non-numeric [facility] results) Medical, PC) Protein Negative Normal (applies MEDGEN (St [Mass/volume] in to non-numeric [facility] Lower results) Medical, respiratory PC) specimen Glucose Negative Normal (applies MEDGEN (St [Mass/volume] in to non-numeric [facility] Urine collected results) Medical, for unspecified PC) duration Occult Blood Negative Normal (applies [facility] (St to non-numeric [facility] results) Medical, PC) Ketones Negative Normal (applies MEDGEN (St [Presence] in to non-numeric [facility] Blood by Tablet results) Medical, PC) Bilirubin Negative Normal (applies MEDGEN (St [Presence] in to non-numeric [facility] Peritoneal fluid results) Medical, PC) Urobilinogen,Heather 0.2 mg/dL Normal (applies MEDGEN (St i-Qn to non-numeric [facility] results) Medical, PC) Nitrite, Urine Negative Normal (applies MEDGEN (S t to non-numeric [facility] results) Medical, PC) Microscopic Normal (applies [facility]GEN (St Examination to non-numeric [facility] results) Medical, PC) ID Date Data Source [id number] 05/11/2020 12:00:00 AM EDT [facility] ([facility]) Name Value Range Interpretation Description Data Sup porting Code Source(s) Document(s ) Glucose 79 mg/dL Normal (applies MEDGEN (St [Mass/volume] in to non-numeric [facility] Urine collected for results) Medical, unspecified PC) duration Urea nitrogen 8 mg/dL Normal (applies [facility] (St [Mass/volume] in to non-numeric [facility] Serum or Plasma results) Medical, PC) eGFR If NonAfricn 74 Normal (applies MEDGEN (St Am mL/min/1 to non-numeric [facility] .73 results) Medical, PC) Creatinine 0.95 Normal (applies [facility] (St [Interpretation] in mg/dL to non-numeric [facility] s Urine results) Medical, PC) eGFR If Africn Am 85 Normal (applies MEDGEN (St mL/min/1 to non-numeric [facility] .73 results) Medical, PC) BUN/Creatinine 8 Below low normal [facility] ( St Ratio [facility]) Sodium 143 Normal (applies [facility]GEN (St [Moles/volume] in mmol/L to non-numeric [facility] Serum or Plasma results) Medical, PC) Potassium 4.1 Normal (applies [facility] (St [Mass/volume] in mmol/L to non-numeric [facility] Blood results) Medical, PC) Chloride 107 Above high MEDGEN (St [Moles/volume] in mmol/L normal [facility] Serum or Plasma Medical, PC) Calcium 9.2 Normal (applies [facility] (St [Moles/volume] in mg/dL to non-numeric [facility] Urine collected for results) Medical, unspecified PC) duration Carbon dioxide, 20 Normal (applies MEDGEN ( St total mmol/L to non-numeric [facility] [Moles/volume] in results) Medical, Serum or Plasma PC) Protein 7.0 g/dL Normal (applies [facility]GEN (St [Mass/volume] in to non-numeric [facility] Serum or Plasma results) Medical, PC) Microalbumin 4.1 g/dL Normal (applies MEDGEN (St [Mass/time] in to non-numeric [facility] Urine collected for results) Medical, unspecified PC) duration Globulin, Total 2.9 g/dL Normal (applies [facility] ( St to non-numeric [facility] results) Medical, PC) A/G Ratio 1.4 Normal (applies [facility] (St to non-numeric [facility] results) Medical, PC) Bilirubin.total 0.6 Normal (applies MEDGEN ( St [Mass/volume] in mg/dL to non-numeric [facility] Serum or Plasma results) Medical, PC) Alkaline 62 IU/L Normal (applies [facility] (St phosphatase to non-numeric [facility] [Enzymatic results) Medical, activity/volume] in ) Serum, Plasma or Blood Aspartate 19 IU/L Normal (applies MED[facility] (St aminotransferase to non-numeric [facility] [Enzymatic results) Medical, activity/volume] in ) Serum or Plasma Alanine 11 IU/L Normal (applies [facility] (St aminotransferase to non-numeric [facility] [Enzymatic results) Medical, activity/volume] in ) Serum or Plasma ID Date Data Source [id number] 05/11/2020 12:00:00 AM EDT [facility] ([facility], ) Name Value Range Interpretation Description Data Sup porting Code Source(s) Document(s ) Leukocytes 4.7 Normal (applies MED[facility] (St [#/volume] in x10E3/uL to non-numeric [facility] Blood by results) [facility], ) Automated count Erythrocytes 3.55 Below low normal [facility] (St [#/volume] in x10E6/uL [facility] Blood by [facility], ) Automated count Hematocrit 34.9 % Normal (applies [facility] (St [Volume to non-numeric [facility] Fraction] of results) [facility], ) Blood by Automated count Hemoglobin 11.8 Normal (applies [facility] (St [Mass/volume] in g/dL to non-numeric [facility] Blood results) [facility]) MCV 98 fL Above high normal MEDGEN ([facility], ) MCHC 33.8 Normal (applies MEDGEN (St g/dL to non-numeric [facility] results) [facility]) MCH 33.2 pg Above high normal MED[facility] ([facility], ) RDW 11.4 % Below low normal MED[facility] ([facility], ) Platelets 293 Normal (applies MEDGEN (St [#/area] in x10E3/uL to non-numeric [facility] Blood by results) [facility], ) Microscopy high power field Neutrophils [#] 48 % Normal (applies MEDGEN ( St in Body fluid by to non-numeric [facility] Manual count results) [facility]) Lymphs 40 % Normal (applies [facility] (St to non-numeric [facility] results) [facility]) Monocytes 8 % Normal (applies MEDGEN (St [#/volume] in to non-numeric [facility] Cord blood results) [facility], ) Eos 3 % Normal (applies [facility] (St to non-numeric [facility] results) Medical, ) Basos 1 % Normal (applies [facility] (St to non-numeric [facility] results) Medical, ) Neutrophils 2.2 Normal (applies [facility] (St (Absolute) x10E3/uL to non-numeric [facility] results) Medical, ) Lymphs 1.9 Normal (applies [facility] (St (Absolute) x10E3/uL to non-numeric [facility] results) Medical, ) Monocytes(Absolu 0.4 Normal (applies MEDGEN (St te) x10E3/uL to non-numeric [facility] results) Medical, ) Eos (Absolute) 0.2 Normal (applies MEDGEN (S t x10E3/uL to non-numeric [facility] results) Medical, ) Baso (Absolute) 0.0 Normal (applies MEDGEN ( St x10E3/uL to non-numeric [facility] results) Medical, ) Immature 0 % Normal (applies [facility] (St Granulocytes to non-numeric [facility] results) Medical, ) Immature Grans 0.0 Normal (applies [facility]GEN (S t (Abs) x10E3/uL to non-numeric [facility] results) Medical, ) ID Date Data Source [id number] 04/20/2020 03:24:00 PM EDT [place] ([facility]) Name Value Range Interpretation Description Data Source(s ) Supporting Code Document(s ) Tina sp Negative Tina CASEY rRNA species ([place] [Presence] in [facility] Vaginal fluid [facility]) by DNA probe Trichomonas Negative Trichomonas CASEY vaginalis rRNA vaginalis ([place] [Presence] in [facility] Genital [facility]) specimen by DNA probe Gardnerella Positive Abnormal Gardnerella CASEY vaginalis rRNA (applies to vaginalis ([place] [Presence] in non-numeric [facility] Genital results) [facility]) specimen by DNA probe ID Date Data Source [id number] 04/20/2020 03:23:00 PM EDT [place] ([facility]) Name Value Range Interpretation Description Data Source(s ) Supporting Code Document(s ) Neisseria Negative Neisseria CASEY gonorrhoeae gonorrhoeae, ([place] rRNA [Presence] MONO [facility]) specimen by Probe and target amplification method Chlamydia Negative Chlamydia CASEY trachomatis trachomatis, ([place] rRNA [Presence] MONO [facility] in [facility]) specimen by Probe and target amplification method ID Date Data Source [id number] 09/09/2019 01:44:00 PM EDT [place] ([facility]) Name Value Range Interpretation Description Data Source(s ) Supporting Code Document(s ) Tina sp Positive Abnormal Tina CASEY rRNA (applies to species ([place] [Presence] in non-numeric [facility] Vaginal fluid results) [facility]) by DNA probe Trichomonas Negative Trichomonas CASEY vaginalis rRNA vaginalis ([place] [Presence] in [facility] Genital [facility]) specimen by DNA probe Gardnerella Positive Abnormal Gardnerella CASEY vaginalis rRNA (applies to vaginalis ([place] [Presence] in non-numeric [facility] Genital results) [facility]) specimen by DNA probe ID Date Data Source [id number] 09/09/2019 01:43:00 PM EDT CASEY ([facility]) Name Value Range Interpretation Description Data Source(s ) Supporting Code Document(s ) Chlamydia Negative Chlamydia CASEY trachomatis trachomatis, ([place] rRNA [Presence] MONO [facility] in [facility]) specimen by Probe and target amplification method Neisseria Negative Neisseria [place] gonorrhoeae gonorrhoeae, ([place] rRNA [Presence] MONO [facility] in [facility]) specimen by Probe and target amplification method ID Date Data Source [id number] 09/09/2019 01:41:00 PM EDT [place] ([facility]) Name Value Range Interpretation Code Description Data Tena rce(s) Supporting Document(s ) Note: PAPSMR Note: CASEY ([facility]) Note: The Pap smear is a screening test designed to aid in the detection ofpremalignant and malignant conditions of the uterine cervix. It is not adiagnostic procedure and should not be used as the sole means of detectingcervical cancer. Both false-positive and false-negative report s do occur. Microscopic observation . . KAYLEEN BELTRAN ([place] [Identifier] in [facility]) specimen by Other stain Pathology report final See Note DIAGNOSIS: KAYLEEN BELTRAN ([place] diagnosis [facility]) Note: NEGATIVE FOR INTRAEPITHELIAL LESIO N OR MALIGNANCY.FUNGAL ORGANISMS MORPHOLOGICALLY CONSISTENT WITH TINA SPECIES AREPRESENT. HPV, high-risk Negative HPV, high-risk CASEY ( [facility]) Note: This high-risk HPV test detects th irteen high-risk types(16/18/31/33/35/39/45/51/52/56/58/5 ) without differentiation. Rn Utilization Management Um who read Cyto See Note Performed by: Valentino BOWDEN ([place] stain of Cervical or [facility]) vaginal smear or scraping Note: Naresh Burgos, Visual And Stock Associate Diagnosis ICD code See Note Clinician provided FREDDY HERNANDEZ ([place] ICD10: [facility]) Note: Z12.4 Statement of adequacy See Note Specimen adequacy: CASEY ([place] [Interpretation] of Cervical [facility] or vaginal smear or scraping C enter) by Cyto stain Note: Satisfactory for evaluation. No e ndocervical component is identified. Cytology report of Cervical TNP Test Methodo logy: CASEY ([place] or vaginal smear or scraping [facility]) Cyto stain.thin prep Note: The Thin Prep(R) Odd Bundle Worker was unable to read this specimen. Thereforea manual review was performed. ID Date Data Source [id number] 09/09/2019 12:00:[facility] Name Value Range Interpretation Description Data Source(s ) Supporting Code Document(s ) Hepatitis B Negative HBsAg Screen CASEY virus surface ([place] Ag [Presence] Neighborhood in [facility] or [facility]) Plasma by Immunoassay ID Date Data Source [id number] 09/09/2019 12:00:00 AM EDT CASEY ([facility]) Name Value Range Interpretation Description Data Source(s ) Supporting Code Document(s ) Hepatitis C <0.1 Hep C Virus [place] virus Ab s/co_rat Ab ([place] Signal/Cutoff io Neighborhood in Serum or [facility]) Plasma by Immunoassay Note: Negative: < 0.8 Indeterm inate: 0.8 - 0.9 Positive: > 0.9 The CDC recommends that a positive HCV antibody result be followed up with a HCV Nucleic Acid Amplification test (09352 [id number]). ID Date Data Source [id number] 09/09/2019 12:00:00 AM EDT CASEY ([facility]) Name Value Range Interpretation Description Data Source(s ) Supporting Code Document(s ) HIV 1+2 Non HIV Screen CASEY Ab+HIV1 p24 Reactive 4th ([place] Ag [Presence] Generation Neighborhood in [facility] or [facility]) Plasma by Immunoassay Procedure Social History Code Duration Value Status Description Data Source(s ) Smoking 08/10/2020 [place] DGEN (St 12:00:00 AM EDT [facility] corrections corrections No No smoking No smoking No drinking No drug drinking No drug Use Use Smoking 08/10/2020 Unknown if ever completed Unknown if ever MEDG EN (St 12:00:00 AM EDT smoked smoked [facility]) Smoking 05/11/2020 Born [place] DGEN (St 12:00:00 AM EDT [facility]) corrections corrections No No smoking No smoking No drinking No drug drinking No drug Use Use Smoking 05/11/2020 Unknown if ever completed Unknown if ever MEDG EN (St 12:00:00 AM EDT smoked smoked [facility]) Vital Signs ID Date Data Source UNK Name Value Range Interpretation Code Description Data Source(s) Heart rate 87 /min 87 /min MEDGEN ([facility], ) Inhaled oxygen 98 % 98 % MEDGEN ([facility] concentration [facility] ) Body mass index 25 kg/m2 25 kg/m2 MEDGEN (S t [place] (BMI) [Ratio] [facility] ) Diastolic blood 68 mm[Hg] 68 mm[Hg] [facility] ([facility] [place] pressure [facility]) Systolic blood 124 mm[Hg] 124 mm[Hg] MEDGEN ([facility] pressure [facility]) Body weight 155 lb 155 lb MEDGEN ([facility], ) Body height 66 in 66 in [facility] ([facility], ) PhenX - pain, 0 0 CASEY (M ount abdominal - type [place] and intensity [facility]) Pt here for Follow Up Body surface area Derived from 1.74 m2 1.74 m2 CASEY ([facility]) Pt here for Follow Up Body mass index (BMI) 24.5 kg/m2 24.5 kg/m2 GRE ENWAY ([place] [[facility]] [facility]) Pt here for Follow Up Body weight 147.25 [lb_av] 147.25 [lb_av] [facility] ([facility]) Pt here for Follow Up Body height 65 [in_us] 65 [in_us] CASEY ([facility]) Pt here for Follow Up Body temperature 97.6 [degF] 97.6 [degF] [facility] ([facility]) Pt here for Follow Up Heart rate 98 /min 98 /min [place] ([facility]) Pt here for Follow Up Diastolic blood pressure 87 mm[Hg] 87 mm[Hg] CASEY ([facility]) Pt here for Follow Up Systolic blood pressure 123 mm[Hg] 123 mm[Hg] [facility] Pt here for Follow Up Heart rate 98 /min 98 /min MEDGEN ([facility], ) Inhaled oxygen concentration 98 % 98 % MEDGEN ([facility], ) Body mass index (BMI) [Ratio] 23.9 kg/m2 23.9 k g/m2 MEDGEN ([facility], ) Diastolic blood pressure 78 mm[Hg] 78 mm[Hg] MEDGEN ([facility], ) Systolic blood pressure 128 mm[Hg] 128 mm[Hg] Sathish GOLD ([facility], ) Body weight 148 lb 148 lb MEDGEN ([facility], ) Body height 66 in 66 in MEDGEN ([facility], ) Heart rate 98 /min 98 /min MEDGEN ([facility], ) Inhaled oxygen concentration 98 % 98 % MEDGEN ([facility], ) Body mass index (BMI) [Ratio] 23.9 kg/m2 23.9 k g/m2 MEDGEN ([facility], ) Diastolic blood pressure 78 mm[Hg] 78 mm[Hg] MEDGEN ([facility], ) Systolic blood pressure 128 mm[Hg] 128 mm[Hg] Sathish GOLD ([facility], ) Body weight 148 lb 148 lb MEDGEN ([facility], ) Body height 66 in 66 in MEDGEN ([facility], ) PhenX - pain, abdominal - type 0 0 CASEY ([place] and intensity protocol [facility]) Patient here for result LMP 04/06/2020 Body surface area Derived from 1.74 m2 1.74 m2 [place] ([facility]) Patient here for result LMP 04/06/2020 Body mass index (BMI) 24.5 kg/m2 24.5 kg/m2 GRE EN[place]AY ([place] [Ratio] [facility]) Patient here for result LMP 04/06/2020 Body weight 147 [lb_av] 147 [lb_av] [place] ([facility]) Patient here for result LMP 04/06/2020 Body height 65 [in_us] 65 [in_us] CASEY ([facility]) Patient here for result LMP 04/06/2020 Body temperature 98.3 [degF] 98.3 [degF] [facility] ([facility]) Patient here for result LMP 04/06/2020 Heart rate 103 /min 103 /min [place] ([facility]) Patient here for result LMP 04/06/2020 Diastolic blood pressure 96 mm[Hg] 96 mm[Hg] [place] ([facility]) Patient here for result LMP 04/06/2020 Systolic blood pressure 144 mm[Hg] 144 mm[Hg] [facility] ([facility]) Patient here for result LMP 04/06/2020 Diastolic blood pressure 97 mm[Hg] 97 mm[Hg] [place] ([facility]) Pt here for Pelvic ExamLMP 04-06-2020 Systolic blood pressure 138 mm[Hg] 138 mm[Hg] [facility] ([facility]) Pt here for Pelvic ExamLMP 04-06-2020 PhenX - pain, abdominal - type and 0 0 CASEY ([facility]) Pt here for Pelvic ExamLMP 04-06-2020 Body surface area Derived from 1.74 m2 1.74 m2 CASEY ([facility]) Pt here for Pelvic ExamLMP 04-06-2020 Body mass index (BMI) 24.5 kg/m2 24.5 kg/m2 GRE ESCOBARWAY ([place] [[facility]] [facility]) Pt here for Pelvic ExamLMP 04-06-2020 Body weight 147.5 [lb_av] 147.5 [lb_av] LAMONTEWA Y ([facility]) Pt here for Pelvic ExamLMP 04-06-2020 Body height 65 [in_us] 65 [in_us] CASEY ([facility]) Pt here for Pelvic ExamLMP 04-06-2020 Body temperature 98.1 [degF] 98.1 [degF] CALDWELLW AY ([facility]) Pt here for Pelvic ExamLMP 04-06-2020 Heart rate 105 /min 105 /min CASEY ([facility]) Pt here for Pelvic ExamLMP 04-06-2020 Heart rate 86 /min 86 /min MEDGEN ([facility], ) Inhaled oxygen concentration 98 % 98 % MEDGEN ([facility], ) Body mass index (BMI) [Ratio] 23.9 kg/m2 23.9 k g/m2 MEDGEN ([facility], ) Diastolic blood pressure 100 mm[Hg] 100 mm[Hg] MEDGEN ([facility], ) Systolic blood pressure 130 mm[Hg] 130 mm[Hg] [facility] ([facility], ) Body weight 148 lb 148 lb [facility] ([facility], ) Body height 66 in 66 in MEDGEN ([facility], ) Heart rate 86 /min 86 /min MEDGEN ([facility], ) Inhaled oxygen concentration 98 % 98 % MEDGEN ([facility], ) Body mass index (BMI) [Ratio] 23.9 kg/m2 23.9 k g/m2 MEDGEN ([facility], ) Diastolic blood pressure 100 mm[Hg] 100 mm[Hg] MEDGEN ([facility], ) Systolic blood pressure 130 mm[Hg] 130 mm[Hg] [facility] ([facility], ) Body weight 148 lb 148 lb MEDGEN ([facility], ) Body height 66 in 66 in MEDGEN ([facility], ) Body surface area Derived from 1.75 m2 1.75 m2 CASEY ([place] formula [facility]) pt here for PAINTER APPRENTICE ANNUAL LMP 08/27/2019 Body mass index (BMI) 24.8 kg/m2 24.8 kg/m2 GRE ENWAY ([place] [Ratio] [facility]) pt here for PAINTER APPRENTICE ANNUAL LMP 08/27/2019 Body weight 149 [lb_av] 149 [lb_av] CASEY ( [facility]) pt here for PAINTER APPRENTICE ANNUAL LMP 08/27/2019 Body height 65 [in_us] 65 [in_us] CASEY ([facility]) pt here for PAINTER APPRENTICE ANNUAL LMP 08/27/2019 Body temperature 98.8 [degF] 98.8 [degF] [facility] ([facility]) pt here for PAINTER APPRENTICE ANNUAL LMP 08/27/2019 Heart rate 95 /min 95 /min CASEY ([facility]) pt here for PAINTER APPRENTICE ANNUAL LMP 08/27/2019 Diastolic blood pressure 91 mm[Hg] 91 mm[Hg] [place] ([facility]) pt here for PAINTER APPRENTICE ANNUAL LMP 08/27/2019 Systolic blood pressure 133 mm[Hg] 133 mm[Hg] [facility]) pt here for PAINTER APPRENTICE ANNUAL LMP 08/27/2019 PhenX - pain, abdominal - type and 0 0 [place] ([facility]) pt here for PAINTER APPRENTICE ANNUAL LMP 08/27/2019 Heart rate 99 /min 99 /min MEDGEN ([facility], ) Respiratory rate 14 /min 14 /min MEDGEN ( [facility], ) Inhaled oxygen concentration 97 % 97 % MEDGEN ([facility], ) Body mass index (BMI) [Ratio] 23.4 kg/m2 23.4 k g/m2 MEDGEN ([facility], ) Diastolic blood pressure 100 mm[Hg] 100 mm[Hg] MEDGEN ([facility], ) Systolic blood pressure 140 mm[Hg] 140 mm[Hg] Sathish GOLD ([facility], ) Body weight 145 lb 145 lb MEDGEN ([facility]) Body height 66 in 66 in [facility] ([facility]) Heart rate 99 /min 99 /min [facility]) Respiratory rate 14 /min 14 /min [facility] ( [facility]) Inhaled oxygen concentration 97 % 97 % [facility] ([facility]) Body mass index (BMI) [Ratio] 23.4 kg/m2 23.4 k g/m2 [facility] ([facility]) Diastolic blood pressure 100 mm[Hg] 100 mm[Hg] [facility] ([facility]) Systolic blood pressure 140 mm[Hg] 140 mm[Hg] Sathish [facility] ([facility]) Body weight 145 lb 145 lb [facility] ([facility]) Body height 66 in 66 in [facility] ([facility]) Body mass index (BMI) [Ratio] 23.4 kg/m2 23.4 k g/m2 [facility] ([facility]) Diastolic blood pressure 80 mm[Hg] 80 mm[Hg] [facility] ([facility]) Systolic blood pressure 122 mm[Hg] 122 mm[Hg] Sathish [facility] ([facility]) Body weight 145 lb 145 lb [facility] ([facility]) Body height 66 in 66 in [facility] ([facility]) Body mass index (BMI) [Ratio] 23.4 kg/m2 23.4 k g/m2 [facility] ([facility]) Diastolic blood pressure 80 mm[Hg] 80 mm[Hg] [facility] ([facility]) Systolic blood pressure 122 mm[Hg] 122 mm[Hg] Sathish [facility] ([facility]) Body weight 145 lb 145 lb [facility] ([facility]) Body height 66 in 66 in [facility] ([facility]) Patient Treatment Plan of Care Planned Activity Planned Date Details Description Data Source (s) Flagyl 500MG Oral Tablet 04/20/2020 GRE ESCOBARWAY ([place] 12:00:00 AM [facility]) Metronidazole 500 MG 09/11/2019 BETTYE Kinney ([place] Oral Tablet 12:00:00 AM T [facility]) Fluconazole 150 MG Oral 09/09/2019 WOOD SUGGS ([place] Tablet 12:00:00 AM [facility])
[2020-09-01 09:35] VITALS: TEMP 98.2
[2020-09-01 10:18] VITALS: BP 108/72; PULSE 78
--- NOTE | 2020-09-02 18:08 | PATH ---
Surgical Pathology Report Patient Name: REGLA ROSARIO [facility]. Rec. #: [id number] /Age/Gender: 1975 (Age: 45) / F Account: [id number] Location: [facility]-ENDOSCOPY Taken: 09/01/2020 Received: 09/01/2020 Reported: 09/02/2020 Physicians: Vasile Schultz D.O. Specimen(s) Received POLYP SIGMOID COLON Clinical History Constipation, FH colon cancer Postoperative diagnosis: Colon polyp Final Diagnosis SIGMOID COLON POLYP, BIOPSY: HYPERPLASTIC POLYP. Electronically Signed Cece Kessler M.D. Gross Description Received in formalin, labeled "polyp sigmoid colon" is a snyder, irregular portion of soft tissue measuring 0.2 cm. in greatest dimension. The specimen is submitted in toto in one cassette. MLSZ/09/02/2020 sanml/09/02/2020
== END 2020-09-01 11:19 | disposition home or self-care (01) ==
LOC: JASU-ENDO 05:18
PROVIDERS: ATTEND Internal Medicine Gastroenterology
PROC: 0DBL8ZX Excision of Transverse Colon, Via Natural or Artificial Opening Endoscopic, Diagnostic (ICD-10-PCS; principal; 2020-09-01 09:06)
DX: Z12.11 Encounter for screening for malignant neoplasm of colon (principal); D12.5 Benign neoplasm of sigmoid colon; K64.8 Other hemorrhoids; Q43.8 Other specified congenital malformations of intestine
CPT/HCPCS: 81025; 88305-TC

== ENCOUNTER 2021-01-31 16:09 | Emergency (ER) | payer OTHER ==
[2021-01-31 16:23] VITALS: TEMP 97.8; BMI 25.2
[2021-01-31] MEDS ORDERED: LIDOCAINE 5% TOPICAL PATCH TP ONE (18:05)
[2021-01-31] MEDS ORDERED: MECLIZINE HCL 25 MG TABLET (FP) PO ONE (18:05)
[2021-01-31 19:19] LABS: EOS % 1.2 % (0-4.5); HEMATOCRIT 39.3 % (32.4-45.2); HEMOGLOBIN 13.3 GM/dL (10.7-15.3); LYMPH % 35.5 % (8-40); MCH 33.8 pg (25.7-33.7); MCHC 33.9 g/dl (32.0-36.0); MEAN CELL VOLUME 99.7 fl (80-96); MEAN PLT VOLUME 8.8 fl (7.5-11.1); MONO % 5.9 % (3.8-10.2); NEUT % 56.4 % (42.8-82.8); PLATELET COUNT 284 K/MM3 (134-434); RBC 3.95 M/mm3 (3.60-5.2); RDW 12.6 % (11.6-15.6); WHITE BLOOD COUNT 6.1 K/mm3 (4.0-10.0)
[2021-01-31 19:30] LABS: INR 1.1 (0.83-1.09); PROTHROMBIN TIME (PATIENT) 13.3 SEC (9.7-13.0)
[2021-01-31] MEDS ORDERED: MECLIZINE HCL 25 MG TABLET (FP) ONE (19:34)
[2021-01-31 19:35] LABS: POTASSIUM 3.5 mmol/L (3.5-5.1)
[2021-01-31 19:36] LABS: CALCIUM 9.4 mg/dL (8.5-10.1)
[2021-01-31 19:37] LABS: BLOOD UREA NITROGEN 9.5 mg/dL (7-18); MAGNESIUM 2.1 mg/dL (1.8-2.4)
[2021-01-31 19:42] LABS: BILIRUBIN,TOTAL 1.2 mg/dL (0.2-1); TOT PROT 8.1 g/dl (6.4-8.2)
[2021-01-31] MEDS ORDERED: LIDOCAINE 5% TOPICAL PATCH ONE (21:49)
[2021-01-31] MEDS ORDERED: LIDOCAINE PATCH REMOVAL MC SCH (22:00)
[2021-01-31] MEDS ORDERED: METHOCARBAMOL 500 MG TABLET PO ONE (23:07)
[2021-01-31] MEDS ORDERED: METHOCARBAMOL 500 MG TABLET ONE (23:52)
[2021-02-01] MEDS ORDERED: IBUPROFEN 600 MG TABLET (FP) PO ONE ×2 (01:42→01:57)
== END 2021-02-01 02:41 | disposition home or self-care (01) ==
LOC: JER 16:09
DX: M54.6 Pain in thoracic spine (principal)
CPT/HCPCS: 36415; 70450-TC; 72128-TC; 72156-TC; 72157-TC; 80053; 83735; 84703; 85025; 85610; 86850; 86900; 86901; 99285-25; A9579

== ENCOUNTER 2021-05-16 00:23 | Emergency (ER) | payer OTHER ==
[2021-05-16 00:55] VITALS: BMI 27.4
[2021-05-16] MEDS ORDERED: ACETAMINOPHEN 500 MG TABLET (FP) PO ONE (01:13)
[2021-05-16] MEDS ORDERED: ACETAMINOPHEN 325 MG TABLET (FP) ONE (01:37)
[2021-05-16 01:45] LABS: BASO % 1.2 % (0-2.0); EOS % 3.6 % (0-4.5); HEMATOCRIT 38.3 % (32.4-45.2); HEMOGLOBIN 13.1 GM/dL (10.7-15.3); LYMPH % 37.7 % (8-40); MCHC 34.1 g/dl (32.0-36.0); MEAN CELL VOLUME 96.9 fl (80-96); MEAN PLT VOLUME 7.8 fl (7.5-11.1); MONO % 7.9 % (3.8-10.2); NEUT % 49.6 % (42.8-82.8); PLATELET COUNT 285 10^3/uL (134-434); RBC 3.96 M/mm3 (3.60-5.2); RDW 12.4 % (11.6-15.6); URINE APPEARANCE CLEAR; URINE BILIRUBIN NEGATIVE (NEGATIVE); URINE COLOR YELLOW; URINE GLUCOSE (UA) NEGATIVE (NEGATIVE); URINE KETONE NEGATIVE (NEGATIVE); URINE LEUK ESTERASE NEGATIVE (NEGATIVE); URINE NITRITE NEGATIVE (NEGATIVE); URINE PROTEIN NEGATIVE (NEGATIVE); URINE UROBILINOGEN 0.2 mg/dL (0.2-1.0); WHITE BLOOD COUNT 6.7 K/mm3 (4.0-10.0)
[2021-05-16 02:05] LABS: ALBUMIN 3.7 g/dl (3.4-5.0); CALCIUM 9.1 mg/dL (8.5-10.1)
[2021-05-16 02:10] LABS: BILIRUBIN,TOTAL 0.3 mg/dL (0.2-1); TOT PROT 7.9 g/dl (6.4-8.2)
[2021-05-16 02:29] LABS: BLOOD UREA NITROGEN 10.7 mg/dL (7-18); CREATININE 1.1 mg/dL (0.55-1.3)
[2021-05-16] MEDS ORDERED: METHOCARBAMOL 750 MG TABLET PO ONE (04:02)
[2021-05-16 10:46] VITALS: BP 135/93; PULSE 80; TEMP 98.4
== END 2021-05-16 10:55 | disposition home or self-care (01) ==
LOC: JER 00:23
DX: R10.31 Right lower quadrant pain (principal); N83.201 Unspecified ovarian cyst, right side
CPT/HCPCS: 36415; 74177-TC; 76830-TC; 76856-TC; 80053; 81003; 83690; 84703; 85025; 87077; 87086; 99285-25

== ENCOUNTER 2022-09-30 00:53 | Emergency (ER) | payer OTHER ==
[2022-09-30 01:02] VITALS: BP 133/95; PULSE 99; RESP 20; TEMP 98.9; BMI 27.8
[2022-09-30] MEDS ORDERED: diphenhydrAMINE HCL 25 MG CAPSULE (FP) PO ONE ×2 (01:41→01:46)
[2022-09-30] MEDS ORDERED: FAMOTIDINE 10 MG TABLET PO ONE (01:41)
[2022-09-30] MEDS ORDERED: DEXAMETHASONE 4 MG TABLET (FP) PO ONE (01:45)
[2022-09-30] MEDS ORDERED: DEXAMETHASONE 4 MG TABLET (FP) ONE (01:46)
[2022-09-30] MEDS ORDERED: FAMOTIDINE 20 MG TABLET ONE (01:46)
== END 2022-09-30 02:46 | disposition home or self-care (01) ==
LOC: JER 00:53
DX: L50.3 Dermatographic urticaria (principal)
CPT/HCPCS: 99283-25

== ENCOUNTER 2023-03-21 17:22 | Emergency (ER) | payer OTHER ==
[2023-03-21 17:36] VITALS: BMI 27.8
[2023-03-21] MEDS ORDERED: ACETAMINOPHEN 1000 MG/100 ML BAG IVPB ONE (18:23)
[2023-03-21] MEDS ORDERED: SODIUM CHLORIDE 1,000 ML IV SCH (18:30)
[2023-03-21] MEDS ORDERED: ACETAMINOPHEN INJECTION 100 ML IVPB ONE (18:56)
[2023-03-21 19:18] LABS: EOS % 2.9 % (0-4.5); HEMATOCRIT 36.4 % (32.4-45.2); HEMOGLOBIN 12.4 GM/dL (10.7-15.3); LYMPH % 38.2 % (8-40); MCH 32.4 pg (25.7-33.7); MCHC 34.1 g/dl (32.0-36.0); MEAN CELL VOLUME 95.1 fl (80-96); MEAN PLT VOLUME 8.4 fl (7.5-11.1); MONO % 7.4 % (3.8-10.2); NEUT % 50.5 % (42.8-82.8); PLATELET COUNT 314 10^3/uL (134-434); RBC 3.83 M/mm3 (3.60-5.2); RDW 12.6 % (11.6-15.6); WHITE BLOOD COUNT 6.1 K/mm3 (4.0-10.0)
[2023-03-21 19:22] LABS: EPI CELLS 6 /uL (0-25.1); HYALINE CASTS 0 /uL (0-3.1); PH,URINE 5.5 (5.0-8.0); URINE APPEARANCE CLEAR; URINE BACTERIA 30 /uL (0-1359); URINE BILIRUBIN NEGATIVE (NEGATIVE); URINE COLOR YELLOW; URINE GLUCOSE (UA) NEGATIVE (NEGATIVE); URINE KETONE NEGATIVE (NEGATIVE); URINE LEUK ESTERASE NEGATIVE (NEGATIVE); URINE NITRITE NEGATIVE (NEGATIVE); URINE PROTEIN NEGATIVE (NEGATIVE); URINE RBC 16 /uL (0-23.9); URINE UROBILINOGEN 0.2 mg/dL (0.2-1.0); URINE WBC 4 /uL (0-25.8)
[2023-03-21 19:37] LABS: CALCIUM 9.6 mg/dL (8.5-10.1)
[2023-03-21 19:38] LABS: ALBUMIN 3.6 g/dl (3.4-5.0); BLOOD UREA NITROGEN 6.8 mg/dL (7-18)
[2023-03-21 19:41] LABS: CREATININE 0.9 mg/dL (0.55-1.3)
[2023-03-21 19:43] LABS: BILIRUBIN,TOTAL 0.7 mg/dL (0.2-1)
[2023-03-21 21:12] VITALS: BP 178/88; PULSE 72; RESP 19; TEMP 98.6
== END 2023-03-21 21:12 | disposition home or self-care (01) ==
LOC: JER 17:22
PROC: 3E033GC Introduction of Other Therapeutic Substance into Peripheral Vein, Percutaneous Approach (ICD-10-PCS; principal; 2023-03-21)
DX: R10.9 Unspecified abdominal pain (principal)
CPT/HCPCS: 36415; 74176-TC; 80053; 81003; 83690; 84703; 85025; 87086; 99285-25

== ENCOUNTER 2024-01-19 13:32 | Observation (INO) | payer OTHER ==
[2024-01-19 14:37] LABS: EPI CELLS 17 /uL (0-25.1); HYALINE CASTS 0 /uL (0-3.1); URINE APPEARANCE Error; URINE BACTERIA 56 /uL (0-1359); URINE BILIRUBIN NEGATIVE (NEGATIVE); URINE COLOR YELLOW; URINE GLUCOSE (UA) NEGATIVE (NEGATIVE); URINE KETONE NEGATIVE (NEGATIVE); URINE LEUK ESTERASE NEGATIVE (NEGATIVE); URINE NITRITE NEGATIVE (NEGATIVE); URINE PROTEIN NEGATIVE (NEGATIVE); URINE RBC 36 /uL (0-23.9); URINE UROBILINOGEN 0.2 mg/dL (0.2-1.0); URINE WBC 4 /uL (0-25.8)
[2024-01-19 16:14] LABS: BASO % 0.8 % (0-2.0); EOS % 4.4 % (0-4.5); HEMATOCRIT 38.5 % (32.4-45.2); HEMOGLOBIN 13.2 GM/dL (10.7-15.3); LYMPH % 34.1 % (8-40); MCH 33.3 pg (25.7-33.7); MCHC 34.4 g/dl (32.0-36.0); MEAN CELL VOLUME 96.8 fl (80-96); MONO % 6.3 % (3.8-10.2); NEUT % 54.4 % (42.8-82.8); PLATELET COUNT 278 10^3/uL (134-434); RBC 3.97 M/mm3 (3.60-5.2); RDW 12.7 % (11.6-15.6); WHITE BLOOD COUNT 8.7 K/mm3 (4.0-10.0)
[2024-01-19 16:20] LABS: INR 1.07 (0.83-1.09); PROTHROMBIN TIME (PATIENT) 12.4 SEC (9.7-13.0)
[2024-01-19 16:23] LABS: ACTIVATED PTT 32.9 SECONDS (25.2-36.5)
[2024-01-19 16:34] LABS: CHLORIDE 106 mmol/L (98-107); POTASSIUM 3.5 mmol/L (3.5-5.1); SODIUM 141 mmol/L (136-145)
[2024-01-19 16:36] LABS: ANION GAP 9 mmol/L (4-13); CALCIUM 9.1 mg/dL (8.5-10.1); CO2 26 mmol/L (21-32)
[2024-01-19 16:37] LABS: ALBUMIN 3.7 g/dl (3.4-5.0)
[2024-01-19 16:38] LABS: BLOOD UREA NITROGEN 6.2 mg/dL (7-18); GLUCOSE,RANDOM 77 mg/dL (74-106)
[2024-01-19 16:40] LABS: CREATININE 0.9 mg/dL (0.55-1.3); SGOT/AST 12 U/L (15-37); SGPT/ALT 12 U/L (13-61)
[2024-01-19 16:41] LABS: CHOLESTEROL 168 mg/dL (50-200)
[2024-01-19 16:42] LABS: LDL CHOLESTEROL (ONLY SJRH) 94 mg/dL (5-100)
[2024-01-19 16:43] LABS: HDL CHOLESTEROL 74 mg/dL (40-60)
[2024-01-19 16:44] LABS: ALK PHOS 87 U/L (45-117)
[2024-01-19 19:06] VITALS: BMI 27.5
[2024-01-19] MEDS: ACETAMINOPHEN 500 MG TABLET (FP) PO PRN (21:53)
[2024-01-19] MEDS: HEPARIN NA (PORCINE) 5,000 UNITS/ML 1ML VIAL SQ SCH (21:53)
[2024-01-19] MEDS: PRAMIPEXOLE DIHYDROCHLORIDE 0.25 MG TABLET PO SCH (21:53)
[2024-01-20 09:20] LABS: HEMATOCRIT 34.8 % (32.4-45.2); HEMOGLOBIN 12.4 GM/dL (10.7-15.3); MCHC 35.6 g/dl (32.0-36.0); MEAN CELL VOLUME 95.5 fl (80-96); MEAN PLT VOLUME 8.1 fl (7.5-11.1); PLATELET COUNT 263 10^3/uL (134-434); RBC 3.64 M/mm3 (3.60-5.2); RDW 12.7 % (11.6-15.6); WHITE BLOOD COUNT 6.9 K/mm3 (4.0-10.0)
[2024-01-20 09:21] LABS: POTASSIUM 3.9 mmol/L (3.5-5.1)
[2024-01-20 09:30] LABS: CALCIUM 8.9 mg/dL (8.5-10.1)
[2024-01-20 09:31] LABS: BLOOD UREA NITROGEN 7.9 mg/dL (7-18)
[2024-01-20 09:34] LABS: CREATININE 0.9 mg/dL (0.55-1.3)
[2024-01-20 09:41] LABS: MAGNESIUM 1.8 mg/dL (1.8-2.4)
[2024-01-20 09:44] LABS: PHOSPHOROUS 3.2 mg/dL (2.5-4.9)
[2024-01-20] MEDS: NADOLOL 40 MG TABLET (FP) PO SCH (10:33)
[2024-01-20] MEDS: GABAPENTIN 300 MG CAPSULE PO SCH (14:33)
[2024-01-20 18:55] VITALS: RESP 18
[2024-01-21 06:47] LABS: HEMATOCRIT 37.5 % (32.4-45.2); HEMOGLOBIN 12.6 GM/dL (10.7-15.3); MCH 32.7 pg (25.7-33.7); MCHC 33.6 g/dl (32.0-36.0); MEAN CELL VOLUME 97.3 fl (80-96); MEAN PLT VOLUME 7.9 fl (7.5-11.1); PLATELET COUNT 271 10^3/uL (134-434); RBC 3.86 M/mm3 (3.60-5.2); RDW 12.6 % (11.6-15.6); WHITE BLOOD COUNT 7.1 K/mm3 (4.0-10.0)
[2024-01-21 07:09] LABS: POTASSIUM 3.9 mmol/L (3.5-5.1)
[2024-01-21 07:16] LABS: ALBUMIN 3.1 g/dl (3.4-5.0); BLOOD UREA NITROGEN 8.6 mg/dL (7-18); CALCIUM 8.9 mg/dL (8.5-10.1)
[2024-01-21 07:19] LABS: CREATININE 0.9 mg/dL (0.55-1.3)
[2024-01-21 07:21] LABS: BILIRUBIN,TOTAL 0.8 mg/dL (0.2-1)
[2024-01-21 08:18] VITALS: BP 132/96; PULSE 90; TEMP 99.1
[2024-01-21] MEDS: MAGNESIUM HYDROX 2400MG/30ML ORAL SUSPENSION 30 ML CUP PO ONE (11:57)
[2024-01-21] MEDS: MAGNESIUM SULF 50% (8.12 MEQ/2 ML-1 GM VIAL) IVPB ONE (11:57)
== END 2024-01-21 14:55 | disposition home or self-care (01) ==
LOC: JER 13:32 → JERBED 16:16 → J4W 18:16
PROVIDERS: ADMIT Internal Medicine; ATTEND Internal Medicine
PROC: 3E023GC Introduction of Other Therapeutic Substance into Muscle, Percutaneous Approach (ICD-10-PCS; principal; 2024-01-19)
PROC: 3E033GC Introduction of Other Therapeutic Substance into Peripheral Vein, Percutaneous Approach (ICD-10-PCS; 2024-01-19)
DX: R20.2 Paresthesia of skin (principal); G43.909 Migraine, unspecified, not intractable, without status migrainosus; R53.1 Weakness; I10 Essential (primary) hypertension; M47.894 Other spondylosis, thoracic region; M54.2 Cervicalgia; M54.9 Dorsalgia, unspecified; Z86.018 Personal history of other benign neoplasm; G25.81 Restless legs syndrome
CPT/HCPCS: 0241U-QW; 36415; 70450-TC; 70551-TC; 71045-TC-FY; 72125-TC; 72128-TC; 72131-TC; 80048; 80053; 80061; 81003; 82550; 82607; 83036; 83540; 83550; 83735; 84100; 84443; 84484; 84703; 85025; 85027; 85610; 85730; 86850; 86900; 86901; 87086; 93005; 93010; 96372; 96374; 97116-GP; 97161-GP; 99285-25; G0378; J1644

== ENCOUNTER 2024-09-15 11:23 | Emergency (ER) | payer OTHER ==
[2024-09-15 11:30] VITALS: RESP 20; BMI 26.9
[2024-09-15] MEDS ORDERED: FAMOTIDINE 20 MG/50 ML IVPB 20 MG/50 ML MG IVPB ONE (11:47)
[2024-09-15] MEDS ORDERED: DEXAMETHASONE SOD PHOSPHATE 10 MG/1 ML VIAL ONE (11:47)
[2024-09-15] MEDS: DEXAMETHASONE SOD PHOSPHATE 10 MG/1 ML VIAL IVPUSH ONE (12:06)
[2024-09-15] MEDS: FAMOTIDINE 20 MG/50 ML IVPB 20 MG/50 ML MG IVPB ONE (12:07)
[2024-09-15 14:06] VITALS: BP 121/79; PULSE 87; TEMP 98.1
[2024-09-15 14:15] LABS: HIV INTERPRETATION NEGATIVE (NEGATIVE)
== END 2024-09-15 14:08 | disposition home or self-care (01) ==
LOC: JER 11:23
PROC: 3E033GC Introduction of Other Therapeutic Substance into Peripheral Vein, Percutaneous Approach (ICD-10-PCS; principal; 2024-09-15)
PROC: 3E033GC Introduction of Other Therapeutic Substance into Peripheral Vein, Percutaneous Approach (ICD-10-PCS; 2024-09-15)
PROC: 3E033GC Introduction of Other Therapeutic Substance into Peripheral Vein, Percutaneous Approach (ICD-10-PCS; 2024-09-15)
DX: T78.40XA Allergy, unspecified, initial encounter (principal)
CPT/HCPCS: 36415; 86803; 87389; 99284-25; J1100